=== PATIENT | female | born 1970 | race Two or more races ===

== ENCOUNTER 2018-12-14 14:48 | Inpatient (IN) | payer MEDICAID ==
[2018-12-14] MEDS ORDERED: CEPACOL LOZENGE PO PRN (16:37)
[2018-12-14] MEDS ORDERED: oxyCODONE IR 5 MG TAB PO PRN (16:37)
[2018-12-14] MEDS ORDERED: POLYVINYL ALCOHOL OP PRN (16:37)
[2018-12-14] MEDS ORDERED: NITROGLYCERIN 2% 1 GM PACKET TP PRN (16:37)
[2018-12-14] MEDS ORDERED: CARBOXYMETHYLCELLULOSE 1% 0.4 ML DROPERETTE OP PRN (16:37)
[2018-12-14] MEDS ORDERED: D50W 25 GM/50 ML SYR IVP PRN (16:39)
[2018-12-14] MEDS ORDERED: BISACODYL 10 MG SUPP PR PRN (16:43)
--- NOTE | 2018-12-14 16:59 | GHP ---
[f rep st] HISTORY AND PHYSICAL DATE OF ADMISSION: 12/14/2018 TIME OF EVALUATION: 1510. REFERRING FACILITY: [facility] REFERRING PHYSICIAN: Dr. Palmer IMPAIRMENT GROUP: [id number]. DATE OF ONSET: 11/24/2018. CONSULTING PHYSICIANS: Dr. Yun of Pulmonary and Critical Care Service. 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 ETIOLOGIC DIAGNOSIS: Other nontraumatic spinal cord dysfunction. DATE OF SURGERY: 11/24/2018. HISTORY OF PRESENT ILLNESS: This patient had slowly progressive weakness of the lower extremities more than upper extremities. She had a right knee surgery for torn cartilage, and then failed to have expected recovery in rehabilitation, which prompted imaging. Lumbar spine and EMG studies were normal. Hyperreflexia was noted on exam and brain and C-spine MRI were done. This showed a very large cigar shaped enhancing tumor in her cervical cord spanning from C4-T2 with edema superiorly into the medulla. She was first seen by Neurosurgery on 10/05/2018. Surgery was planned, and she was eventually admitted to [facility] where the surgery was done. She underwent a C3-T1 laminectomy infusion for resection of an intramedullary spinal cord tumor, which is thought to be an ependymoma. She had significant postoperative weakness of the legs and arms, so once she was medically stabilized, she was transferred for rehabilitation. Postop MRI of the cervical and thoracic spine showed good resection of the lesion. She was treated with steroids, and maintained at a goal mean arterial pressure of 65 mmHg to optimize recovery of spinal cord function. She reports that the neurosurgeon told her to expect a gradual recovery lasting as long as 6 months to a year. STUDIES AND LABS IN THE HOSPITAL: Most recent labs I have are a CBC from 2018, which showed a slightly elevated white blood cell count at 10.2. Hemoglobin and hematocrit were normal at 12.2 and 37.2. Platelets were 306. Basic metabolic profile on the same date showed slight hyponatremia with a sodium of 134, otherwise renal function and electrolytes were within normal limits. Magnesium was 2, and phosphorus was 3.3, both normal. Liver function tests on 12/06/2018, showed a slightly low albumin at 3.2, and a slightly low protein at 6.1. Otherwise, they were normal. PRECAUTIONS: She is a fall risk. She has orthopedic spinal precautions for the cervical spine. 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 She otherwise is without any tier 1, tier 2, or tier 3 comorbidities. 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 PAST SURGICAL HISTORY: She had closure of the skin over the traumatic amputation, and she had cartilage surgery on the right knee. PRE-HOSPITAL MEDICATIONS: I do not have a list. ADMISSION MEDICATIONS: 1. Acetaminophen 1000 mg q.8 hours. 2. Artificial Tears p.r.n. 3. Bisacodyl 10 mg at bedtime. 4. Bupropion 75 mg twice daily. 5. Carboxymethylcellulose refresh eyedrops p.r.n. 6. Dexamethasone 2 mg on a taper 4 mg 3 times daily for 2 days, then 4 mg twice daily for 4 days, then 2 mg twice daily for 4 days, then 2 mg daily for 3 days, and then discontinue. 7. Diazepam 5 mg q.6 hours p.r.n. anxiety. 8. Enoxaparin 40 mg subcutaneous daily. 9. Senna/docusate 2 tabs by mouth 2 times a day. 10. Oxycodone 5-10 mg p.o. q.4 hours p.r.n. ALLERGIES: There are no known drug allergies. SOCIAL HISTORY: She lives with her 2 teenage sons. She is a nonsmoker and nondrinker. 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 She is primarily [place]an speaking. FAMILY HISTORY: Noncontributory. REVIEW OF SYSTEMS: She is not currently in pain. She denies fevers or chills. She denies headache or vision changes. She denies difficulty swallowing. She denies cough or dyspnea. She denies nausea, vomiting, constipation, or diarrhea, and reports that her last bowel movement was yesterday morning after a suppository. She denies any difficulty with urination. She has weakness in the arms, and even more weakness in the legs. She reports that she has sensation everywhere. She is in good spirits. Otherwise, a 10-point review of systems is negative. PHYSICAL EXAMINATION: VITAL SIGNS: Vitals are not yet available in the chart. GENERAL: This is an overweight-appearing woman, lying in bed, dressed in hospital gown with a cervical collar, cooperative, and in no acute distress. HEENT: Extraocular movements are intact. Pupils are equal, round, and reactive to light. Mucous members are moist. Dentition is in good condition. She has an uncrowded airway, Mallampati class 2. NECK: Supple, though restricted with the cervical collar. HEART: Regular rate and rhythm with no murmurs, rubs, or gallops. LUNGS: Clear to auscultation bilaterally. ABDOMEN : Soft, nontender, nondistended with normoactive bowel sounds, and no hepatosplenomegaly. EXTREMITIES: There is no cyanosis, clubbing, or edema. Radial and dorsalis pedis pulses are 2+ bilaterally. NEUROLOGIC: She is alert and oriented x3. Cranial nerves 2-12 are grossly intact. Motor strength reveals 4/5 strength at the left biceps and triceps, and 2/5 strength at the right biceps and triceps. Her hand tractor operator battery are very weak bilaterally. She requires assist to arise to seated from supine. Lower extremities reveal flaccid paralysis bilaterally with no increased tone noted. Sensation is intact to light touch. Deep tendon reflexes are 2+ bilaterally at the biceps, patellar, and Achilles tendons. CURRENT LEVEL OF FUNCTION: Per the preadmission screen, she was wearing adult diapers. She was noted to be intermittently incontinent of bladder and bowel. Bed mobility required maximal assist of 2 transfers. Balance required assist of 2 to sit at the edge of the bed. Endurance was poor. Cognition and communication were normal. On today's exam, there is no significant change from the preadmission screen. IMPRESSION: This is a 48-year-old woman, who had gradual development of weakness in the lower extremities greater than the upper extremities. She had knee surgery, and did not have a good recovery from her right knee surgery. Eventually, she had imaging of the spine, which revealed a mass from C4-T2. She underwent surgery on 11/24/2018 with a C3-T1 laminectomy and fusion with resection of an intramedullary spinal cord tumor, which was consistent with an ependymoma. Postoperatively, she has significant weakness of the legs, much more so than the upper extremities. She also had impaired bowel and bladder control in the hospital. She appears to have intact sensation. This would be an MONIE level C incomplete spinal cord injury, with more than half of muscles below the neurologic level with a muscle grade of less than 3. She has little pain, and has not been using opiates in recent days in the hospital. Pain has been treated with pregabalin, as well as acetaminophen. She is appropriate for inpatient rehabilitation with needs for PT and OT. It is unclear the extent to which she will be able to recover lower extremity strength during the course of her rehabilitation stay, but she will need to learn how to best make transfers and take care of her needs with the deficits that she has. She has needs for rehabilitation nursing regarding possible complications of spinal cord injury including neurogenic bowel and bladder and autonomic dysreflexia. She she and her family have needs for education regarding spinal cord injury. Her goal is to complete a rehabilitation stay, and then return home with support of her family and supportive services for a safe discharge. It is expected she will be able to self direct the assistance that she requires for functional mobility, ADLs, and bowel and bladder management. It is anticipated that she will progress to the level of a 1 person assist for all functional transfers and activities of daily living, and she will be able to self propel her wheelchair indoors for 150 feet. The patient's sister will be a primary caregiver, and she will need to be trained to be able to safely assist her. She will have therapy on a modified schedule with Physical Therapy and Occupational Therapy for 60-90 minutes per day on 5-7 days of the week to total 15 hours of therapy per week or more. Her expected duration of stay is 21-28 days. It is anticipated that upon discharge, she will continue to benefit from home health services, including nursing, a nurse's aide, social work, occupational therapy, and physical therapy. PLAN: 1. Spinal cord dysfunction, C3 level, MONIE class 3, status post C3-T1 laminectomy and fusion on 11/24/2018 for resection of an ependymoma. PT and OT to optimize mobility and activities of daily living. 2. Possible neurogenic bowel and neurogenic bladder will be addressed with the neurogenic bowel and bladder protocol. 3. Risk for autonomic dysreflexia. She appears to have intact sensation, but she may not have appropriate parasynthetic control. Blood pressures will be monitored, and she will be treated with the autonomic peripheral dysreflexia protocol. WIll use nitroglycerin paste on a p.r.n. basis if non-pharmacologic measures are unsuccessful.. 4. Elevated blood sugars in the hospital, likely due to dexamethasone with possible risk for diabetes mellitus, given her age and body habitus. She has not been discharged with orders for insulin but was receiving in the hospital. We will continue an insulin sliding scale on the rehabilitation unit. 5. Prophylaxis for postoperative patient with spinal cord injury. She is on a dexamethasone taper, and this will be continued. As her mobility is severely limited, she will also be continued on enoxaparin. We will initiate GI prophylaxis with pantoprazole, as long as she is on both dexamethasone and enoxaparin. She is to wear her cervical collar at all times, except when showering. She has spinal precautions for the neck with no bending, twisting, or lifting greater than 10 pounds. FOLLOWUP: She is to follow up with Dr. Palmer in approximately 2 weeks, which would be the week of December 22. She will most likely still be in rehabilitation, so followup needs will be discussed with Dr. Palmer, and if possible, she can remain on the rehabilitation unit, rather than going out. She will need referral to outpatient physiatry and to primary care. /[id number]/MODL MTDD
[2018-12-14] MEDS ORDERED: TEARS/DEXTRAN 70/HYPROMELLOSE 15 ML OPHT.BTL EACHEYE PRN (17:01)
[2018-12-14] MEDS: INSULIN REGULAR HUMAN 100 UNIT/ML UNIT SC SCH ×2 (17:21→21:09)
[2018-12-14] MEDS: ENOXAPARIN 40 MG/0.4 ML SYR SC SCH (17:22)
[2018-12-14] MEDS ORDERED: NITROGLYCERIN 2% 1 GM PACKET TP SCH (18:00)
[2018-12-14] MEDS: ACETAMINOPHEN 500 MG TAB PO SCH (21:05)
[2018-12-14] MEDS: buPROPion 75 MG TAB PO SCH (21:06)
[2018-12-14] MEDS: DEXAMETHASONE 4 MG TAB PO SCH (21:06)
[2018-12-15] MEDS: ACETAMINOPHEN 500 MG TAB PO SCH ×3 (05:49→22:06)
[2018-12-15] MEDS: DEXAMETHASONE 4 MG TAB PO SCH ×3 (08:11→22:06)
[2018-12-15] MEDS: buPROPion 75 MG TAB PO SCH ×2 (08:11→22:06)
[2018-12-15] MEDS: INSULIN REGULAR HUMAN 100 UNIT/ML UNIT SC SCH ×4 (08:11→22:12)
[2018-12-15] MEDS ORDERED: hydrALAZINE 10 MG TAB PO PRN (10:43)
[2018-12-15] MEDS ORDERED: LIDOCAINE 2% JELLY 20 ML (UROJECT) UR PRN (10:45)
--- NOTE | 2018-12-15 12:33 | SOAPPROG ---
SOAP Progress Note Assessment/Plan: Assessment: Spinal cord dysfunction, C3 level, MONIE class 3, status post C3-T1 laminectomy and fusion on 11/24/2018 for resection of an ependymoma. PT and OT to optimize mobility and activities of daily living. Possible neurogenic bowel and neurogenic bladder will be addressed with the neurogenic bowel and bladder protocols. Risk for autonomic dysreflexia. She appears to have intact sensation, but she may not have appropriate parasympathetic control. * Blood pressures and symptoms of distress will be monitored, and she will be treated with the autonomic dysreflexia protocol. * Will use nitroglycerin paste on a p.r.n. basis if non-pharmacologic measures are unsuccessful.. Low blood pressure. Consider use of JB hose, abdominal binder, or pharmacologic treatments if she has orthostatic symptoms. Elevated blood sugars in the hospital, likely due to dexamethasone with possible risk for diabetes mellitus, given her age and body habitus. She has not been discharged with orders for insulin but was receiving in the hospital. We will continue an insulin sliding scale on the rehabilitation unit. Prophylaxis for postoperative patient with spinal cord injury. She is on a dexamethasone taper, and this will be continued. * As her mobility is severely limited, she will also be continued on enoxaparin. * Will initiate GI prophylaxis with pantoprazole, as long as she is on both dexamethasone and enoxaparin. * Incentive spirometry, as she has a weak cough. * She is to wear her cervical collar at all times, except when showering. She has spinal precautions for the neck with no bending, twisting, or lifting greater than 10 pounds. FOLLOWUP: She is to follow up with Neurosurgeon Dr. Palmer in approximately 2 weeks, which would be the week of December 22. She will most likely still be in rehabilitation, so followup needs will be discussed with Dr. Palmer, and if possible, she can remain on the rehabilitation unit, rather than going out. She will need referral to outpatient Physiatry and to primary care. 12/15/18 12:46 Subjective: No complaints. Slept well. Not in pain. She is not aware of any issues with bowel or bladder. In good spirits. Objective: Vital Signs Temp Pulse Resp BP Pulse Ox 36.5 C 68 16 95/60 L 95 12/15/18 06:17 12/15/18 06:17 12/15/18 06:17 12/15/18 06:17 12/15/18 06:17 12/14/18 12/15/18 12/16/18 05:59 05:59 05:59 Intake Total 400 250 Output Total 1975 Balance -1575 250 Physical Exam - Physical Exam General Appearance: WD/WN, alert, no apparent distress Respiratory: normal breath sounds, No crackles, No rhonchi, No wheezing Cardiac/Chest: regular rate, rhythm, No edema, No diastolic murmur, No systolic murmur Skin: normal color, warm/dry Neuro/Psych: alert, normal mood/affect, oriented x 3, motor weakness (Flaccid paralysis bilateral lower extremities. Has some motor control of the arms.) ICD10 Worksheet Patient Problems: Problems Problem Status Onset Spinal cord injury, cervical region Acute
--- NOTE | 2018-12-15 12:33 | PDOREHIP ---
Admission [facility] - Admission - 3 Day Assessment Period Admission Date/Day 1: 12/14/18 Day 2: 12/15/18 Day 3: 12/16/18 - Active Diagnoses Comorbidities and Co-existing Conditions at Admission: 16115. None of the Above - Skin Conditions Unhealed Pressure Ulcer (1 or more/Stage 1 or >)-Admission: 1. Yes # Stage 1 Pressure Ulcers-Admission: 0 # Stage 2 Pressure Ulcers-Admission: 1 (Right gluteal) # Stage 3 Pressure Ulcers-Admission: 0 # Stage 4 Pressure Ulcers-Admission: 0 # Unstageable Pressure Ulcers (Non-remove Dress)-Admission: 0 # Unstageable Pressure Ulcers (Slough/Eschar)-Admission: 0 # Unstageable Pressure Ulcers (Deep Tissue Injury)-Admission: 0
--- NOTE | 2018-12-15 13:19 | SOAPPROG ---
SOAP Progress Note Assessment/Plan: 48-year-old woman now status post resection of tumor consistent with the pending mom from the C4-T2 levels that had edema superior to the medulla now with C3 AIS (MONIE) C spinal cord injury on admission to inpatient rehabilitation with relative sparing of the upper limbs, left greater than right with absent motor response in the lower limbs. Today's update: This is a limited note from the same service as Dr. Wallace, please see his note for full daily medical issues. MONIE exam was completed today with spinal cord injury level noted above. She did have some anal sensation, did not have pinprick around the anus. As a summary, her last full strength motor level was C5 bilaterally, with weakness at C6 and below. The lowest intact sensory level was C3. Recommendations for nontraumatic incomplete cervical level spinal cord injury, C3 AIS C: * Cardiovascular: Patient is at risk for autonomic dysreflexia but per reports have not demonstrated signs or symptoms showing that this is orally a problem. The orders for management of autonomic dysreflexia by nursing, p.r.n. Orders for nitropaste and hydralazine as he had adjunctive medications. Did additional reminders on the unit for staff. Patient also has hypotension, initially starting with non pharmacologic therapy such as abdominal binder and thigh-high Zane hose for blood pressure support. Can consider pharmacologic strategies for blood pressure support such as midodrine if necessary. * Neurogenic bowel: Patient has reported bowel sensation, but was observed be incontinent today during exam. Assumed presence of neurogenic bowel given level spinal cord injury and severity, establishing regular bowel program and getting in KUB to determine amount of retained stool. Start with regular bowel program and can address more aggressively in coming days if necessary. Goal is a daily bowel program to be performed at the beginning or end of day not interfering with therapy with the goal to completely prevent incontinence. * Neurogenic bladder: Similarly to neurogenic bowel, assume that she has neurogenic bladder. Reports of large volume voids but patient denies episodes of incontinence. Reports are mixed. Plan for scheduled voiding with postvoid residuals after each void. Low threshold for replacing Ramírez catheter given poor hand function. She is likely not a good candidate for intermittent catheterization any time soon. * Neurogenic skin: Q 2 hr turns in bed, acute 15 min adjustment while in a wheelchair. Skin checks twice a day, education and Mirror. Wound care for pressure ulcer observed on right buttock today. * Pulmonary: Patient has a weak cough and likely has neuromuscular impairment of the chest wall, encouraging incentive spirometry. Low threshold for respiratory therapy evaluation. We do not have a cough assist available in house, but would discuss further with respiratory therapy if secretion management is an issue. * Contracture prevention: She does not have spasticity at this moment, but would benefit from ankle splints when resting in bed for contracture prevention as well as skin protection. Orthotics order placed today * Additional sequelae of spinal cord injury: Patient had a slow onset of spinal cord injury symptoms, checking labs for monitoring renal function. Low threshold for renal imaging as she is at high risk for having high-pressure bladder. This should definitely be followed as an outpatient as well. Also checking labs for hypercalcemia, as she is at high risk for this given age and immobility. * Discharge planning: Patient will be working with staff to identify a area physical medicine rehabilitation physician to manage spinal cord injury issues after discharge, including monitoring renal function, ongoing Prosthetics orthotics needs, wheelchair needs. * Mobility planning: Overall prognosis is guarded, discuss with team the need to be thinking about powered mobility and lift access early in the course. * Spinal cord injury education: Printed off information in Chinese and [place] to be covered with the patient by staff. Patient noted that she prefers information in Chinese, spoken. Unclear what her baseline literacy level is, we will recruit family members to help with this process as well. Her symptom history is also unclear at times, may require additional re-education and venting of her symptoms. Recommendations above discussed with Dr. Wallace, to be incorporated in the daily plan for this patient. Dr. Wallace I represent the same service, inpatient rehabilitation, please refer to his note for billing for this date of service. 12/15/18 13:03 Subjective: Chief complaint: New spinal cord injury Please see prior notes from the service for full details. History was obtained with an educational interpreter, however there was some mixed interpretation of symptoms. Overall it seems that prior to the surgery she was having a bowel movement sometimes as little as once per week, unclear when this frequency for started. Notes that there was a gradual onset of functional decline, but she denied that there was progression of weakness. Denies any shortness of breath, has a weak cough. Objective: Vital Signs Temp Pulse Resp BP Pulse Ox 36.5 C 68 16 95/60 L 95 12/15/18 06:17 12/15/18 06:17 12/15/18 06:17 12/15/18 06:17 12/15/18 06:17 12/14/18 12/15/18 12/16/18 05:59 05:59 05:59 Intake Total 400 250 Output Total 1974 Balance -1575 250 Physical Exam - Physical Exam General Appearance: WD/WN, alert, no apparent distress EENT: No scleral icterus (R), No scleral icterus (L) Neck: other (C-collar in place) Respiratory: No respiratory distress, No accessory muscle use Cardiac/Chest: normal peripheral pulses, regular rate, rhythm, No edema Abdomen: non-tender, distended Rectal: decreased tone, other (Rectal tone was low no voluntary sphincter contraction. Pinprick sensation about the anus was absent), No normal rectal tone, No black stool, No blood streaked stool, No hemorrhoids, No tenderness Skin: normal color, warm/dry, other (Right buttock had a healing lesion), No cyanosis, No diaphoresis Extremities: No pedal edema, No calf tenderness, No swelling Neuro/Psych: alert, normal mood/affect, other (Please see detailed OMNIE exam in the chart. Also had 2+ reflexes at the bilateral patella, Babinski was equivocal. No spasticity appreciated in the upper or lower limbs) ICD10 Worksheet Patient Problems: Problems Problem Status Onset Spinal cord injury, cervical region Acute
[2018-12-15] MEDS: ENOXAPARIN 40 MG/0.4 ML SYR SC SCH (15:03)
[2018-12-15] MEDS ORDERED: BISACODYL 10 MG SUPP PR ONE (17:00)
[2018-12-15] MEDS: DOCUSATE SODIUM 100 MG CAP PO SCH (22:06)
[2018-12-16] MEDS ORDERED: BISACODYL 10 MG SUPP PR SCH (06:00)
[2018-12-16] MEDS: ACETAMINOPHEN 500 MG TAB PO SCH ×3 (06:14→21:46)
[2018-12-16] MEDS: INSULIN REGULAR HUMAN 100 UNIT/ML UNIT SC SCH (08:19)
[2018-12-16] MEDS: buPROPion 75 MG TAB PO SCH ×2 (08:22→21:45)
[2018-12-16] MEDS: DOCUSATE SODIUM 100 MG CAP PO SCH ×2 (08:23→21:45)
[2018-12-16] MEDS: DEXAMETHASONE 4 MG TAB PO SCH ×2 (08:23→15:52)
[2018-12-16] MEDS: PANTOPRAZOLE SODIUM 40 MG TAB PO SCH (08:24)
--- NOTE | 2018-12-16 12:56 | SOAPPROG ---
SOAP Progress Note Assessment/Plan: Assessment: Spinal cord dysfunction, C3 level, MONIE class 3, status post C3-T1 laminectomy and fusion on 11/24/2018 for resection of an ependymoma. * Initial functional independence measure is 57 on 12/16/2018. Working on upright tolerance. She spent 60 min in the tilt in space wheelchair, upright for a meal. She requires Farhan lift for transfer firs. She did a sliding board transfer with maximal assist of 2. She has trace movement in the lower extremities more so on the left than the right. She has full active range of motion with the upper extremities. She accomplished upper body dressing with moderate to maximal assist. Lower body dressing required total assist. She is incontinent of stool and insensate. * Physical therapy is initiating process of obtaining a power chair. * Continue PT and OT to optimize mobility and activities of daily living. Hyponatremia, with sodium 133 on 12/16/2018. * Check urine and serum osmolalities, serum uric acid and urine sodium, to evaluate for SIADH. Neurogenic bowel * Start with regular bowel program and can address more aggressively in coming days if necessary. Goal is a daily bowel program to be performed at the beginning or end of day not interfering with therapy with the goal to completely prevent incontinence. Neurogenic bladder * Plan for scheduled voiding with postvoid residuals after each void. Low threshold for replacing Ramírez catheter. Given poor hand function, she is likely not a good candidate for intermittent catheterization any time soon. * Normal renal function but mild hyponatremia on labs 12/16/2018. Risk for autonomic dysreflexia. She appears to have intact sensation, but she may not have appropriate parasympathetic control. * Blood pressures and symptoms of distress will be monitored, and she will be treated with the autonomic dysreflexia protocol. * Will use nitroglycerin paste on a p.r.n. basis if non-pharmacologic measures are unsuccessful.. Skin ulcer, right buttock, possibly from shear. * Though it appears to be possibly vesicular, swab was negative by PCR testing for HSV 1 or 2 or for Zoster. * Continue specialty mattress and q.2 hours turning schedule. Pulmonary.. * Has been assessed by Respiratory therapy. Achieving near normal pressures with incentive spirometry. Continue incentive spirometry. Contracture prevention. * No spasticity at present but will initiate spasticity of management with medications of a develops. * Podus boots while in bed to prevent ankle contractures. Low blood pressure. Consider use of JB hose, abdominal binder, or pharmacologic treatments if she has orthostatic symptoms. Elevated blood sugars in the hospital, likely due to dexamethasone with possible risk for diabetes mellitus, given her age and body habitus. She has not been discharged with orders for insulin but was receiving in the hospital. We will continue an insulin sliding scale on the rehabilitation unit. Prophylaxis for postoperative patient with spinal cord injury. She is on a dexamethasone taper, and this will be continued. * As her mobility is severely limited, she will also be continued on enoxaparin. * Will initiate GI prophylaxis with pantoprazole, as long as she is on both dexamethasone and enoxaparin. * Incentive spirometry, as she has a weak cough. * She is to wear her cervical collar at all times, except when showering. She has spinal precautions for the neck with no bending, twisting, or lifting greater than 10 pounds. DISPOSITION: Attended staffing, 15 min. Discussed with case management, nursing, dietitian, PT, OT. Unclear whether destination is home or [facility]it[facility] facility. Mother is coming from [place] to assist in care. Tentative discharge date set for 01/06/2019. FOLLOWUP: She is to follow up with Neurosurgeon Dr. Palmer in approximately 2 weeks, which would be the week of December 22. She will most likely still be in rehabilitation, so followup needs will be discussed with Dr. Palmer, and if possible, she can remain on the rehabilitation unit, rather than going out. She will need referral to outpatient Physiatry and to primary care. 12/15/18 12:46 12/16/18 12:38 Subjective: No complaints. Slept well. Not in pain. No fevers or chills. Reports some difficulty with bowel movements and unclear how much sensation she has. Objective: Vital Signs Temp Pulse Resp BP Pulse Ox 37.3 C 92 18 93/60 L 96 12/16/18 06:41 12/16/18 06:41 12/16/18 06:41 12/16/18 06:41 12/16/18 06:41 Microbiology 12/15/18 17:45 Herpes Simplex Virus I (PCR) - Final Dermal - Buttock Hsv-1 Dna Not Detected Herpes Simplex Virus II (PCR) - Final Hsv-2 Dna Detected Varicella-Zoster Group DNA (PCR) - Final Vzv Dna Not Detected HSV/VZV PCR Additional Information - Final Laboratory Results 12/16/18 06:00 12/15/18 12/16/18 12/17/18 05:59 05:59 05:59 Intake Total 400 760 Output Total 9306 8233 925 Balance -1575 -1365 -100 - Time Spent With Patient Time Spent With Patient: Greater than 35 min floor time today, including more than 50% of time in coordination of care during staffing, and counseling patient. Physical Exam - Physical Exam General Appearance: WD/WN, alert, no apparent distress Respiratory: No respiratory distress, No accessory muscle use Cardiac/Chest: No edema Skin: normal color, warm/dry Neuro/Psych: alert, normal mood/affect, oriented x 3, motor weakness ICD10 Worksheet Patient Problems: Problems Problem Status Onset Spinal cord injury, cervical region Acute
[2018-12-16] MEDS: ENOXAPARIN 40 MG/0.4 ML SYR SC SCH (15:52)
[2018-12-16] MEDS: BISACODYL 10 MG SUPP PR SCH (19:14)
[2018-12-17] MEDS: ACETAMINOPHEN 500 MG TAB PO SCH ×3 (05:16→21:05)
[2018-12-17] MEDS: PANTOPRAZOLE SODIUM 40 MG TAB PO SCH (08:56)
[2018-12-17] MEDS: DEXAMETHASONE 4 MG TAB PO SCH ×2 (08:56→21:05)
[2018-12-17] MEDS: buPROPion 75 MG TAB PO SCH ×2 (08:56→21:05)
[2018-12-17] MEDS: DOCUSATE SODIUM 100 MG CAP PO SCH ×2 (08:56→22:14)
--- NOTE | 2018-12-17 11:43 | HOSPPROG ---
Hospitalist Progress Note Assessment/Plan: Spinal cord dysfunction, C3 level, MONIE class 3, status post C3-T1 laminectomy and fusion on 11/24/2018 for resection of an ependymoma. * Initial functional independence measure is 57 on 12/16/2018. Working on upright tolerance. She spent 60 min in the tilt in space wheelchair, upright for a meal. She requires Farhan lift for transfer firs. She did a sliding board transfer with maximal assist of 2. She has trace movement in the lower extremities more so on the left than the right. She has full active range of motion with the upper extremities. She accomplished upper body dressing with moderate to maximal assist. Lower body dressing required total assist. She is incontinent of stool and insensate. * Physical therapy is initiating process of obtaining a power chair. * Continue PT and OT to optimize mobility and activities of daily living. Hyponatremia, with sodium 133 on 12/16/2018. * Check urine and serum osmolalities, serum uric acid and urine sodium, to evaluate for SIADH. Neurogenic bowel * Start with regular bowel program and can address more aggressively in coming days if necessary. Goal is a daily bowel program to be performed at the beginning or end of day not interfering with therapy with the goal to completely prevent incontinence. Neurogenic bladder * Plan for scheduled voiding with postvoid residuals after each void. Low threshold for replacing Ramírez catheter. Given poor hand function, she is likely not a good candidate for intermittent catheterization any time soon. * Normal renal function but mild hyponatremia on labs 12/16/2018. Risk for autonomic dysreflexia. She appears to have intact sensation, but she may not have appropriate parasympathetic control. * Blood pressures and symptoms of distress will be monitored, and she will be treated with the autonomic dysreflexia protocol. * Will use nitroglycerin paste on a p.r.n. basis if non-pharmacologic measures are unsuccessful.. Skin ulcer, right buttock, possibly from shear. * Though it appears to be possibly vesicular, swab was negative by PCR testing for HSV 1 or 2 or for Zoster. * Continue specialty mattress and q.2 hours turning schedule. 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 SEEMS TO BE IN HEALING PHASE BUT WILL GIVE A FEW DAYS OF VALACYCLOVIR UNTIL IT DRIES UP Pulmonary.. * Has been assessed by Respiratory therapy. Achieving near normal pressures with incentive spirometry. Continue incentive spirometry. Contracture prevention. * No spasticity at present but will initiate spasticity of management with medications of a develops. * Podus boots while in bed to prevent ankle contractures. Low blood pressure. Consider use of JB hose, abdominal binder, or pharmacologic treatments if she has orthostatic symptoms. Elevated blood sugars in the hospital, likely due to dexamethasone with possible risk for diabetes mellitus, given her age and body habitus. She has not been discharged with orders for insulin but was receiving in the hospital. We will continue an insulin sliding scale on the rehabilitation unit. Prophylaxis for postoperative patient with spinal cord injury. She is on a dexamethasone taper, and this will be continued. * As her mobility is severely limited, she will also be continued on enoxaparin. * Will initiate GI prophylaxis with pantoprazole, as long as she is on both dexamethasone and enoxaparin. * Incentive spirometry, as she has a weak cough. * She is to wear her cervical collar at all times, except when showering. She has spinal precautions for the neck with no bending, twisting, or lifting greater than 10 pounds. DISPOSITION: Unclear whether destination is home or long-term facility. Mother is coming from [place] to assist in care. Tentative discharge date set for 01/06/2019. FOLLOWUP: She is to follow up with Neurosurgeon Dr. Palmer in approximately 2 weeks, which would be the week of December 22. She will most likely still be in rehabilitation, so followup needs will be discussed with Dr. Palmer, and if possible, she can remain on the rehabilitation unit, rather than going out. She will need referral to outpatient Physiatry and to primary care. Subjective: no new complaints. 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 Objective: Vital Signs Temp Pulse Resp BP Pulse Ox 36.7 C 79 16 89/65 L 96 12/17/18 05:15 12/17/18 05:15 12/17/18 05:15 12/17/18 05:15 12/17/18 05:15 Microbiology 12/15/18 17:45 Herpes Simplex Virus I (PCR) - Final Dermal - Buttock Hsv-1 Dna Not Detected Herpes Simplex Virus II (PCR) - Final Hsv-2 Dna Detected Varicella-Zoster Group DNA (PCR) - Final Vzv Dna Not Detected HSV/VZV PCR Additional Information - Final Laboratory Results 12/17/18 07:00 12/16/18 12/17/18 12/18/18 05:59 05:59 05:59 Intake Total 760 1050 Output Total 0219 1257 Balance -4892 -934 - Physical Exam Constitutional: no apparent distress, appears nourished, not in pain Eyes: anicteric sclera, EOMI Ears, Nose, Mouth, Throat: moist mucous membranes Cardiovascular: regular rate and rhythym, no murmur, rub, or gallop Respiratory: no respiratory distress Gastrointestinal: normoactive bowel sounds, soft, non-tender abdomen, distension (lower abd ditension - soft) Skin: other (left buttock - small erythematous lesion - could be burst vesicles) Neurologic: AAOx3 Psychiatric: interacting appropriately, not anxious, not encephalopathic, thought process linear ICD10 Worksheet Patient Problems: Problems Problem Status Onset Spinal cord injury, cervical region Acute
[2018-12-17] MEDS: valACYclovir 500 MG TAB PO SCH ×2 (14:13→21:04)
[2018-12-17] MEDS: BISACODYL 10 MG SUPP PR SCH (16:19)
[2018-12-17] MEDS: ENOXAPARIN 40 MG/0.4 ML SYR SC SCH (16:19)
[2018-12-18] MEDS: ACETAMINOPHEN 500 MG TAB PO SCH ×3 (05:33→22:39)
[2018-12-18] MEDS: valACYclovir 500 MG TAB PO SCH ×2 (09:06→20:32)
[2018-12-18] MEDS: PANTOPRAZOLE SODIUM 40 MG TAB PO SCH (09:06)
[2018-12-18] MEDS: DOCUSATE SODIUM 100 MG CAP PO SCH ×2 (09:06→20:32)
[2018-12-18] MEDS: buPROPion 75 MG TAB PO SCH ×2 (09:07→20:32)
[2018-12-18] MEDS: DEXAMETHASONE 4 MG TAB PO SCH ×2 (09:07→20:32)
--- NOTE | 2018-12-18 11:07 | HOSPPROG ---
Hospitalist Progress Note Assessment/Plan: Spinal cord dysfunction, C3 level, MONIE class 3, status post C3-T1 laminectomy and fusion on 11/24/2018 for resection of an ependymoma. * Initial functional independence measure is 57 on 12/16/2018. Working on upright tolerance. She spent 60 min in the tilt in space wheelchair, upright for a meal. She requires Farhan lift for transfer firs. She did a sliding board transfer with maximal assist of 2. She has trace movement in the lower extremities more so on the left than the right. She has full active range of motion with the upper extremities. She accomplished upper body dressing with moderate to maximal assist. Lower body dressing required total assist. She is incontinent of stool and insensate. * Physical therapy is initiating process of obtaining a power chair. * Continue PT and OT to optimize mobility and activities of daily living. Hyponatremia, with sodium 133 on 12/16/2018. * possibly SIADH per urine but improved very quickly 12/17/18. recheck in a few days Neurogenic bowel * Start with regular bowel program and can address more aggressively in coming days if necessary. Goal is a daily bowel program to be performed at the beginning or end of day not interfering with therapy with the goal to completely prevent incontinence. Neurogenic bladder * Plan for scheduled voiding with postvoid residuals after each void. Low threshold for replacing Ramírez catheter. Given poor hand function, she is likely not a good candidate for intermittent catheterization any time soon. * Normal renal function but mild hyponatremia on labs 12/16/2018. Risk for autonomic dysreflexia. She appears to have intact sensation, but she may not have appropriate parasympathetic control. * Blood pressures and symptoms of distress will be monitored, and she will be treated with the autonomic dysreflexia protocol. * Will use nitroglycerin paste on a p.r.n. basis if non-pharmacologic measures are unsuccessful.. Skin ulcer, right buttock, possibly from shear. * Though it appears to be possibly vesicular, swab was negative by PCR testing for HSV 1 or 2 or for Zoster. * Continue specialty mattress and q.2 hours turning schedule. 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 SEEMS TO BE IN HEALING PHASE BUT WILL GIVE A FEW DAYS OF VALACYCLOVIR UNTIL IT DRIES UP Pulmonary.. * Has been assessed by Respiratory therapy. Achieving near normal pressures with incentive spirometry. Continue incentive spirometry. Contracture prevention. * No spasticity at present but will initiate spasticity of management with medications of a develops. * Podus boots while in bed to prevent ankle contractures. Low blood pressure. Consider use of JB hose, abdominal binder, or pharmacologic treatments if she has orthostatic symptoms. Elevated blood sugars in the hospital, likely due to dexamethasone with possible risk for diabetes mellitus, given her age and body habitus. She has not been discharged with orders for insulin but was receiving in the hospital. We will continue an insulin sliding scale on the rehabilitation unit. Prophylaxis for postoperative patient with spinal cord injury. She is on a dexamethasone taper, and this will be continued. * As her mobility is severely limited, she will also be continued on enoxaparin. * Will initiate GI prophylaxis with pantoprazole, as long as she is on both dexamethasone and enoxaparin. * Incentive spirometry, as she has a weak cough. * She is to wear her cervical collar at all times, except when showering. She has spinal precautions for the neck with no bending, twisting, or lifting greater than 10 pounds. DISPOSITION: Unclear whether destination is home or [facility] facility. Mother is coming from [place] to assist in care. Tentative discharge date set for 01/06/2019. FOLLOWUP: She is to follow up with Neurosurgeon Dr. Palmer in approximately 2 weeks, which would be the week of December 22. She will most likely still be in rehabilitation, so followup needs will be discussed with Dr. Palmer, and if possible, she can remain on the rehabilitation unit, rather than going out. She will need referral to outpatient Physiatry and to primary care. Subjective: no new complaints. had large bm overnight Objective: Vital Signs Temp Pulse Resp BP Pulse Ox 36.7 C 66 16 97/61 L 96 12/18/18 05:49 12/18/18 05:49 12/18/18 05:49 12/18/18 05:49 12/18/18 05:49 Laboratory Results 12/17/18 07:00 12/17/18 12/18/18 12/19/18 05:59 05:59 05:59 Intake Total 1050 1360 Output Total 8920 5265 Balance -445 -315 - Physical Exam Constitutional: no apparent distress, appears nourished, not in pain Eyes: anicteric sclera, EOMI Ears, Nose, Mouth, Throat: moist mucous membranes Cardiovascular: regular rate and rhythym Respiratory: no respiratory distress Gastrointestinal: normoactive bowel sounds, soft, non-tender abdomen, distension Skin: warm Neurologic: AAOx3 ICD10 Worksheet Patient Problems: Problems Problem Status Onset Spinal cord injury, cervical region Acute
[2018-12-18] MEDS: ENOXAPARIN 40 MG/0.4 ML SYR SC SCH (16:57)
[2018-12-18] MEDS: BISACODYL 10 MG SUPP PR SCH (18:23)
[2018-12-19] MEDS: ACETAMINOPHEN 500 MG TAB PO SCH ×3 (05:37→21:13)
[2018-12-19] MEDS: BISACODYL 10 MG SUPP PR SCH (05:37)
[2018-12-19] MEDS: DOCUSATE SODIUM 100 MG CAP PO SCH ×2 (09:16→21:13)
[2018-12-19] MEDS: DEXAMETHASONE 4 MG TAB PO SCH ×2 (09:16→21:13)
[2018-12-19] MEDS: buPROPion 75 MG TAB PO SCH ×2 (09:16→21:13)
[2018-12-19] MEDS: PANTOPRAZOLE SODIUM 40 MG TAB PO SCH (09:16)
[2018-12-19] MEDS: valACYclovir 500 MG TAB PO SCH ×2 (09:16→21:13)
--- NOTE | 2018-12-19 10:55 | SOAPPROG ---
SOAP Progress Note Assessment/Plan: Assessment: Spinal cord dysfunction, C3 level, ALMA class 3, status post C3-T1 laminectomy and fusion on 11/24/2018 for resection of an ependymoma. She does have antigravity strength of the deltoids and wrist extensors so her Alma classification may need to be updated in the next week or so. * Initial functional independence measure is 57 on 12/16/2018. Working on upright tolerance. She spent 60 min in the tilt in space wheelchair, upright for a meal. She requires Farhan lift for transfer firs. She did a sliding board transfer with maximal assist of 2. She has trace movement in the lower extremities more so on the left than the right. She has full active range of motion with the upper extremities. She accomplished upper body dressing with moderate to maximal assist. Lower body dressing required total assist. She is incontinent of stool and insensate. * Physical therapy is initiating process of obtaining a power chair. * Continue PT and OT to optimize mobility and activities of daily living. Possible cognitive dysfunction. Patient discussed during a team rounds today and occupational therapy concerned that there may be some cognitive dysfunction even when an coroner's juror is present. Therefore will obtain speech therapy consult with coroner's juror. Hyponatremia. Sodium level on 12/17 was 137. 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 Neurogenic bowel * Start with regular bowel program and can address more aggressively in coming days if necessary. Goal is a daily bowel program to be performed at the beginning or end of day not interfering with therapy with the goal to completely prevent incontinence. Neurogenic bladder * Plan for scheduled voiding with postvoid residuals after each void. Low threshold for replacing Ramírez catheter. Given poor hand function, she is likely not a good candidate for intermittent catheterization any time soon. * Normal renal function but mild hyponatremia on labs 12/16/2018. Risk for autonomic dysreflexia. She appears to have intact sensation, but she may not have appropriate parasympathetic control. * Blood pressures and symptoms of distress will be monitored, and she will be treated with the autonomic dysreflexia protocol. * Will use nitroglycerin paste on a p.r.n. basis if non-pharmacologic measures are unsuccessful.. Skin ulcer, right buttock, possibly from shear. * Though it appears to be possibly vesicular, swab was negative by PCR testing for HSV 1 or 2 or for Zoster. * Continue specialty mattress and q.2 hours turning schedule. Pulmonary.. * Has been assessed by Respiratory therapy. Achieving near normal pressures with incentive spirometry. Continue incentive spirometry. Lungs are clear on this morning's exam. Contracture prevention. * No spasticity at present but will initiate spasticity of management with medications of a develops. * Podus boots while in bed to prevent ankle contractures. Hypertension. Blood pressure on . Blood pressure this morning pending. . Elevated blood sugars in the hospital, likely due to dexamethasone with possible risk for diabetes mellitus, given her age and body habitus. She has not been discharged with orders for insulin but was receiving in the hospital. We will continue an insulin sliding scale on the rehabilitation unit. Prophylaxis for postoperative patient with spinal cord injury. She is on a dexamethasone taper, and this will be continued. * As her mobility is severely limited, she will also be continued on enoxaparin. * Will initiate GI prophylaxis with pantoprazole, as long as she is on both dexamethasone and enoxaparin. * Incentive spirometry, as she has a weak cough. * She is to wear her cervical collar at all times, except when showering. She has spinal precautions for the neck with no bending, twisting, or lifting greater than 10 pounds. DISPOSITION: Attended staffing, 15 min. Discussed with case management, nursing, dietitian, PT, OT. Unclear whether destination is home or shelter facility. Mother is coming from [place] to assist in care. Tentative discharge date set for 01/06/2019. FOLLOWUP: She is to follow up with Neurosurgeon Dr. Palmer in approximately 2 weeks, which would be the week of December 22. She will most likely still be in rehabilitation, so followup needs will be discussed with Dr. Palmer, and if possible, she can remain on the rehabilitation unit, rather than going out. She will need referral to outpatient Physiatry and to primary care. Plan: 12/19/18 09:50 12/19/18 10:55 Subjective: No complaints reported by patient. She denies lower extremity pain or spasticity. Objective: Vital Signs Temp Pulse Resp BP Pulse Ox 36.7 C 93 16 91/65 L 94 12/18/18 20:00 12/18/18 20:00 12/18/18 20:00 12/18/18 20:00 12/18/18 20:00 Laboratory Results 12/17/18 07:00 12/18/18 12/19/18 12/20/18 05:59 05:59 05:59 Intake Total 1360 9326 Output Total 0556 5693 Balance -315 -850 Physical Exam - Physical Exam General Appearance: WD/WN, alert, no apparent distress Respiratory: lungs clear, normal breath sounds Abdomen: non-tender, soft, other (No suprapubic tenderness) Skin: Zoster-like rash Neuro/Psych: alert, motor weakness (No active lower extremity motor recruitment. 3+ anterior and lateral deltoid, biceps, wrist and finger extensors bilaterally with left upper extremity being slightly weaker than right.) ICD10 Worksheet Patient Problems: Problems Problem Status Onset Spinal cord injury, cervical region Acute
[2018-12-19] MEDS: ENOXAPARIN 40 MG/0.4 ML SYR SC SCH (17:10)
[2018-12-20] MEDS: BISACODYL 10 MG SUPP PR SCH (05:36)
[2018-12-20] MEDS: ACETAMINOPHEN 500 MG TAB PO SCH ×3 (05:40→20:37)
[2018-12-20] MEDS: buPROPion 75 MG TAB PO SCH ×2 (10:12→20:37)
[2018-12-20] MEDS: PANTOPRAZOLE SODIUM 40 MG TAB PO SCH (10:12)
[2018-12-20] MEDS: DEXAMETHASONE 4 MG TAB PO SCH ×2 (10:12→20:37)
[2018-12-20] MEDS: DOCUSATE SODIUM 100 MG CAP PO SCH ×2 (10:12→20:37)
[2018-12-20] MEDS: valACYclovir 500 MG TAB PO SCH ×2 (10:13→20:37)
--- NOTE | 2018-12-20 11:45 | SOAPPROG ---
SOAP Progress Note Assessment/Plan: Assessment: Spinal cord dysfunction, C3 level, MONIE class 3, status post C3-T1 laminectomy and fusion on 11/24/2018 for resection of an ependymoma. HER LEFT UPPER EXTREMITY STRENGTH IS GREATER THAN THE RIGHT UPPER EXTREMITY WITH 4/5 STRENGTH OF THE LEFT TRICEPS. SHE HAS AT LEAST 3/5 STRENGTH OF THE RIGHT AND LEFT DELTOIDS AND THEREFORE SHE MAY BE CLOSER TO A C5 LEVEL MONIE CLASSIFICATION AT THIS POINT. CONTINUE SERIAL TESTING TO GAUGE MOTOR RETURN. * Initial functional independence measure is 57 on 12/16/2018. Working on upright tolerance. She spent 60 min in the tilt in space wheelchair, upright for a meal. She requires Farhan lift for transfer firs. She did a sliding board transfer with maximal assist of 2. She has trace movement in the lower extremities more so on the left than the right. She has full active range of motion with the upper extremities. She accomplished upper body dressing with moderate to maximal assist. Lower body dressing required total assist. She is incontinent of stool and insensate. * Physical therapy is initiating process of obtaining a power chair. * Continue PT and OT to optimize mobility and activities of daily living. Possible cognitive dysfunction. Patient discussed during a team rounds today and occupational therapy concerned that there may be some cognitive dysfunction even when an territory sales consultant is present. Therefore will obtain speech therapy consult with territory sales consultant. Hyponatremia. Sodium level on 12/17 was 137. CBC IN A.M. 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 Neurogenic bowel-ON 12/20 EXAM, PATIENT REPORTS SHE HAS SENSATION REGARDING WHEN SHE NEEDS TO HAVE A BOWEL MOVEMENT. * Start with regular bowel program and can address more aggressively in coming days if necessary. Goal is a daily bowel program to be performed at the beginning or end of day not interfering with therapy with the goal to completely prevent incontinence. Neurogenic bladder. ON 12/20 EXAM, PATIENT REPORTS SHE HAS SENSATION REGARDING WHEN SHE NEEDS TO URINATE. * Plan for scheduled voiding with postvoid residuals after each void. Low threshold for replacing Ramírez catheter. Given poor hand function, she is likely not a good candidate for intermittent catheterization any time soon. * Normal renal function but mild hyponatremia on labs 12/16/2018. Risk for autonomic dysreflexia. She appears to have intact sensation, but she may not have appropriate parasympathetic control. * Blood pressures and symptoms of distress will be monitored, and she will be treated with the autonomic dysreflexia protocol. * Will use nitroglycerin paste on a p.r.n. basis if non-pharmacologic measures are unsuccessful.. Skin ulcer, right buttock, possibly from shear. * Though it appears to be possibly vesicular, swab was negative by PCR testing for HSV 1 or 2 or for Zoster. * Continue specialty mattress and q.2 hours turning schedule * WILL WRITE ORDER FOR CHAIR TO BE TILTED BACKWARDS FOR 1 MIN EVERY 15 MIN Pulmonary.. * Has been assessed by Respiratory therapy. Achieving near normal pressures with incentive spirometry. Continue incentive spirometry. Lungs are clear on this morning's exam. Contracture prevention. * No spasticity at present but will initiate spasticity of management with medications of a develops. * Podus boots while in bed to prevent ankle contractures. Hypertension. Blood pressure on 12/18 91/67. Blood pressure 12/20 WAS 95/69. RULE OUT INFECTION-PATIENT REPORTS FEELING COLD TO NURSING STAFF. AFEBRILE AT 37.3. WILL OBTAIN CBC AND UA, CULTURE AND SENSITIVITY TODAY . Elevated blood sugars in the hospital, likely due to dexamethasone with possible risk for diabetes mellitus, given her age and body habitus. She has not been discharged with orders for insulin but was receiving in the hospital. We will continue an insulin sliding scale on the rehabilitation unit. Prophylaxis for postoperative patient with spinal cord injury. She is on a dexamethasone taper, and this will be continued. * As her mobility is severely limited, she will also be continued on enoxaparin. * Will initiate GI prophylaxis with pantoprazole, as long as she is on both dexamethasone and enoxaparin. * Incentive spirometry, as she has a weak cough. * She is to wear her cervical collar at all times, except when showering. She has spinal precautions for the neck with no bending, twisting, or lifting greater than 10 pounds. DISPOSITION: Attended staffing, 15 min. Discussed with case management, nursing, dietitian, PT, OT. Unclear whether destination is home or senior living facility. Mother is coming from [place] to assist in care. Tentative discharge date set for 01/06/2019. FOLLOWUP: She is to follow up with Neurosurgeon Dr. Palmer in approximately 2 weeks, which would be the week of December 22. She will most likely still be in rehabilitation, so followup needs will be discussed with Dr. Palemr, and if possible, she can remain on the rehabilitation unit, rather than going out. She will need referral to outpatient Physiatry and to primary care. Plan: 12/19/18 09:50 12/19/18 10:55 12/20/18 11:45 Subjective: PATIENT REPORTS TO NURSING THAT SHE FEELS COLD. NO COMPLAINTS VERBALIZED TO ME WITH PROCUREMENT PROFESSIONAL PRESENT. SHE REPORTS THAT SHE HAS SENSATION REGARDING NEED TO URINATE AND HAVE BOWEL MOVEMENTS. SHE DOES NOT REPORT UPPER OR LOWER EXTREMITY NEUROPATHIC PAIN. Objective: Vital Signs Temp Pulse Resp BP Pulse Ox 37.3 C 93 15 95/69 L 93 12/20/18 05:45 12/20/18 05:45 12/20/18 05:45 12/20/18 05:45 12/20/18 05:45 Laboratory Results 12/17/18 07:00 12/19/18 12/20/18 12/21/18 05:59 05:59 05:59 Intake Total 1275 1572 Output Total 2125 1550 Balance -850 22 Physical Exam - Physical Exam General Appearance: WD/WN, alert, mild distress, other (APPEARS COMFORTABLE SITTING IN WHEELCHAIR) Respiratory: lungs clear, normal breath sounds Cardiac/Chest: No edema Abdomen: non-tender, soft, other (ABDOMINAL BINDER IN PLACE) Skin: warm/dry Neuro/Psych: alert, motor weakness (LEFT UPPER EXTREMITY HAS MORE MOTOR RETURN THAN RIGHT UPPER EXTREMITY. 3/5 ANTERIOR AND MIDDLE DELTOID BILATERALLY WITH SLIGHTLY MORE MOTOR CONTROL TRIAL ON THE LEFT. 3/5 RIGHT 2+ 3-/5 LEFT BICEPS 4/ 5 LEFT TRICEPS LACKS ANTIGRAVITY TRICEPS ON THE RIGHT. LEFT WRIST EXTENSORS 4/5 , RIGHT 3-/5. NO FUNCTIONAL MOTOR RETURN OF LOWER EXTREMITIES.) ICD10 Worksheet Patient Problems: Problems Problem Status Onset Spinal cord injury, cervical region Acute
[2018-12-20] MEDS: ENOXAPARIN 40 MG/0.4 ML SYR SC SCH (15:49)
[2018-12-20 19:12] LABS: PLATELET COUNT 198 10^3/uL (150-400)
[2018-12-21] MEDS: ACETAMINOPHEN 500 MG TAB PO SCH ×3 (05:56→19:00)
[2018-12-21] MEDS: BISACODYL 10 MG SUPP PR SCH (05:56)
[2018-12-21] MEDS: DEXAMETHASONE 2 MG TAB PO SCH ×2 (08:51→21:06)
[2018-12-21] MEDS: buPROPion 75 MG TAB PO SCH ×2 (08:51→21:06)
[2018-12-21] MEDS: PANTOPRAZOLE SODIUM 40 MG TAB PO SCH (08:52)
[2018-12-21] MEDS: DOCUSATE SODIUM 100 MG CAP PO SCH ×2 (08:52→21:06)
[2018-12-21] MEDS: valACYclovir 500 MG TAB PO SCH (08:52)
--- NOTE | 2018-12-21 10:56 | SOAPPROG ---
SOAP Progress Note Assessment/Plan: Assessment: Spinal cord dysfunction, C3 level, MONIE class 3, status post C3-T1 laminectomy and fusion on 11/24/2018 for resection of an ependymoma. * Initial functional independence measure is 57 on 12/16/2018. Working on upright tolerance. She spent 60 min in the tilt in space wheelchair, upright for a meal. She requires Farhan lift for transfer firs. She did a sliding board transfer with maximal assist of 2. She has trace movement in the lower extremities more so on the left than the right. She has full active range of motion with the upper extremities. She accomplished upper body dressing with moderate to maximal assist. Lower body dressing required total assist. She is incontinent of stool and insensate. * Physical therapy is initiating process of obtaining a power chair. * Continue PT and OT to optimize mobility and activities of daily living. Hyponatremia, with sodium 133 on 12/16/2018. 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 * Improved to 137 on 12/17/2018 but down to 130 on 12/20/2018. * Initiate 1000 cc per day fluid restriction starting 12/21/2018. Will also prescribe sodium chloride tablets 1000 mg three times daily with meals. * Recheck BMP on 12/23/2018. Neurogenic bowel * Getting daily bisacodyl suppository and docusate is prescribed. Appears to be having daily bowel movements. Neurogenic bladder * Continue scheduled voiding with postvoid residuals after each void. Given poor hand function, she is likely not a good candidate for intermittent catheterization any time soon. * Not requiring catheterization and has low postvoid resist. Low-grade fever and chills. * Urinalysis was unconvincing for UTI. No pulmonary symptoms other than reduced breath sounds. No signs of cellulitis and incision is healing very well. No leukocytosis on 12/20/2018. * Continue incentive spirometry. Continue to monitor for any symptoms of infection. Risk for autonomic dysreflexia. She appears to have intact sensation, but she may not have appropriate parasympathetic control. * Blood pressures and symptoms of distress will be monitored, and she will be treated with the autonomic dysreflexia protocol. * Will use nitroglycerin paste on a p.r.n. basis if non-pharmacologic measures are unsuccessful. * Has had no symptoms. Skin ulcer, right buttock, possibly from shear. 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 * Continue specialty mattress and q.2 hours turning schedule. * Valacyclovir started 12/17/2018. Continued 3 days total. Pulmonary.. * Has been assessed by Respiratory therapy. Achieving near normal pressures with incentive spirometry. Continue incentive spirometry. Contracture prevention. * No spasticity at present but will initiate spasticity of management with medications of a develops. * Podus boots while in bed to prevent ankle contractures. Low blood pressure.JB hose, abdominal binder, as needed for orthostatic symptoms. Elevated blood sugars in the hospital, likely due to dexamethasone with possible risk for diabetes mellitus, given her age and body habitus. * Occasional use of insulin initially on the rehabilitation unit. Insulin and blood sugar checks were discontinued as dexamethasone dose has come down. Prophylaxis for postoperative patient with spinal cord injury. She is on a dexamethasone taper, and this will be continued. * As her mobility is severely limited, she will also be continued on enoxaparin. * Will initiate GI prophylaxis with pantoprazole, as long as she is on both dexamethasone and enoxaparin. * Incentive spirometry, as she has a weak cough. * She is to wear her cervical collar at all times, except when showering. She has spinal precautions for the neck with no bending, twisting, or lifting greater than 10 pounds. DISPOSITION: Unclear whether destination is home or longterm facility. Mother is coming from [place] to assist in care. Tentative discharge date set for 01/06/2019. FOLLOWUP: She is to follow up with Neurosurgeon Dr. Palmer in approximately 2 weeks, which would be the week of December 22. She will most likely still be in rehabilitation, so followup needs will be discussed with Dr. Palmer, and if possible, she can remain on the rehabilitation unit, rather than going out. She will need referral to outpatient Physiatry and to primary care. 12/21/18 11:30 Subjective: Has been feeling cold. Nurse noted a low fever to 100.4. Has some head congestion and occasional cough. No dyspnea. No dysuria, no bladder pain. No constipation or diarrhea. Objective: Vital Signs Temp Pulse Resp BP Pulse Ox 36.9 C 90 18 86/58 L 96 12/21/18 10:30 12/21/18 10:30 12/21/18 10:30 12/21/18 10:30 12/21/18 10:30 Laboratory Results 12/20/18 16:10 12/20/18 19:30 12/20/18 12/21/18 12/22/18 05:59 05:59 05:59 Intake Total 1572 1000 500 Output Total 1550 1575 200 Balance 22 -575 300 Physical Exam - Physical Exam General Appearance: WD/WN, alert, no apparent distress Respiratory: normal breath sounds, decreased breath sounds, No crackles, No rhonchi, No wheezing Cardiac/Chest: No edema Skin: normal color, warm/dry ICD10 Worksheet Patient Problems: Problems Problem Status Onset Spinal cord injury, cervical region Acute
[2018-12-21] MEDS: SODIUM CHLORIDE 1,000 MG TAB PO SCH ×2 (12:14→17:41)
[2018-12-21] MEDS: ENOXAPARIN 40 MG/0.4 ML SYR SC SCH (16:29)
[2018-12-22] MEDS: ACETAMINOPHEN 500 MG TAB PO SCH ×3 (05:33→20:45)
[2018-12-22] MEDS: SODIUM CHLORIDE 1,000 MG TAB PO SCH ×3 (08:47→18:03)
[2018-12-22] MEDS: PANTOPRAZOLE SODIUM 40 MG TAB PO SCH (08:47)
[2018-12-22] MEDS: DEXAMETHASONE 2 MG TAB PO SCH ×2 (08:47→20:45)
[2018-12-22] MEDS: buPROPion 75 MG TAB PO SCH ×2 (08:48→20:45)
[2018-12-22] MEDS: DOCUSATE SODIUM 100 MG CAP PO SCH ×2 (08:48→20:45)
[2018-12-22] MEDS: BISACODYL 10 MG SUPP PR SCH (15:16)
[2018-12-22] MEDS: ENOXAPARIN 40 MG/0.4 ML SYR SC SCH (15:16)
--- NOTE | 2018-12-22 15:46 | SOAPPROG ---
SOAP Progress Note Assessment/Plan: Assessment: Spinal cord dysfunction, C3 level, MONIE class 3, status post C3-T1 laminectomy and fusion on 11/24/2018 for resection of an ependymoma. * Initial functional independence measure is 57 on 12/16/2018. Working on upright tolerance. She spent 60 min in the tilt in space wheelchair, upright for a meal. She requires Farhan lift for transfer firs. She did a sliding board transfer with maximal assist of 2. She has trace movement in the lower extremities more so on the left than the right. She has full active range of motion with the upper extremities. She accomplished upper body dressing with moderate to maximal assist. Lower body dressing required total assist. She is incontinent of stool and insensate. * Physical therapy is initiating process of obtaining a power chair. * Continue PT and OT to optimize mobility and activities of daily living. Hyponatremia, with sodium 133 on 12/16/2018. 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 * Improved to 137 on 12/17/2018 but down to 130 on 12/20/2018. * Initiate 1000 cc per day fluid restriction starting 12/21/2018. Will also prescribe sodium chloride tablets 1000 mg three times daily with meals. * Recheck BMP on 12/23/2018. Neurogenic bowel * Getting daily bisacodyl suppository and docusate is prescribed. Appears to be having daily bowel movements. Neurogenic bladder * Not requiring catheterization and has low postvoid residuals. Discontinue bladder scans. Continued scheduled toileting. Low-grade fever and chills, 12/20/2018. Resolved. * Urinalysis was unconvincing for UTI. Will not treat despite positive culture for E coli, as she has no symptoms. * No pulmonary symptoms other than reduced breath sounds. No signs of cellulitis and incision is healing very well. No leukocytosis on 12/20/2018. * Continue incentive spirometry. Continue to monitor for any symptoms of infection. Risk for autonomic dysreflexia. She appears to have intact sensation, but she may not have appropriate parasympathetic control. * Blood pressures and symptoms of distress will be monitored, and she will be treated with the autonomic dysreflexia protocol. * Will use nitroglycerin paste on a p.r.n. basis if non-pharmacologic measures are unsuccessful. * Has had no symptoms. Skin ulcer, right buttock, possibly from shear. 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 * Continue specialty mattress and q.2 hours turning schedule. * Valacyclovir started 12/17/2018. Continued 3 days total. Pulmonary.. * Has been assessed by Respiratory therapy. Achieving near normal pressures with incentive spirometry. Continue incentive spirometry. Contracture prevention. * No spasticity at present but will initiate spasticity of management with medications of a develops. * Podus boots while in bed to prevent ankle contractures. Low blood pressure. JB hose, abdominal binder, as needed for orthostatic symptoms. Elevated blood sugars in the hospital, likely due to dexamethasone with possible risk for diabetes mellitus, given her age and body habitus. * Occasional use of insulin initially on the rehabilitation unit. Insulin and blood sugar checks were discontinued as dexamethasone dose has come down. Prophylaxis for postoperative patient with spinal cord injury. She is on a dexamethasone taper, and this will be continued. * As her mobility is severely limited, she will also be continued on enoxaparin. * Will initiate GI prophylaxis with pantoprazole, as long as she is on both dexamethasone and enoxaparin. * Incentive spirometry, as she has a weak cough. * She is to wear her cervical collar at all times, except when showering. She has spinal precautions for the neck with no bending, twisting, or lifting greater than 10 pounds. DISPOSITION: Unclear whether destination is home or custodial facility. Mother is coming from [place] to assist in care. Tentative discharge date set for 01/06/2019. FOLLOWUP: She is to follow up with Neurosurgeon Dr. Palmer in approximately 6 weeks post surgery, which would be January 04. Discucsed with neurosurgery RACHANA West, 12/22/2017. She an follow up after discharge. 12/22/18 15:41 Subjective: No complaints. Denies dysuria or urinary frequency. Has some discomfort from the cervical collar. Objective: Vital Signs Temp Pulse Resp BP Pulse Ox 36.5 C 77 16 98/62 L 93 12/22/18 06:43 12/22/18 06:43 12/22/18 06:43 12/22/18 06:43 12/22/18 06:43 Microbiology 12/20/18 20:45 Urine Culture - Final Urine,Clean Catch Escherichia Coli Laboratory Results 12/20/18 16:10 12/20/18 19:30 12/21/18 12/22/18 12/23/18 05:59 05:59 05:59 Intake Total 1000 1310 100 Output Total 1575 1150 300 Balance -575 160 -200 Physical Exam - Physical Exam General Appearance: WD/WN, alert, no apparent distress Respiratory: No respiratory distress, No accessory muscle use Skin: normal color, warm/dry Extremities: No swelling Neuro/Psych: alert, normal mood/affect, oriented x 3, motor weakness ICD10 Worksheet Patient Problems: Problems Problem Status Onset Spinal cord injury, cervical region Acute
[2018-12-23] MEDS: ACETAMINOPHEN 500 MG TAB PO SCH ×3 (06:22→20:48)
[2018-12-23] MEDS: PANTOPRAZOLE SODIUM 40 MG TAB PO SCH (09:24)
[2018-12-23] MEDS: DOCUSATE SODIUM 100 MG CAP PO SCH ×2 (09:24→20:47)
[2018-12-23] MEDS: DEXAMETHASONE 2 MG TAB PO SCH ×2 (09:25→20:47)
[2018-12-23] MEDS: buPROPion 75 MG TAB PO SCH ×2 (09:25→20:47)
[2018-12-23] MEDS: SODIUM CHLORIDE 1,000 MG TAB PO SCH ×3 (09:25→18:11)
--- NOTE | 2018-12-23 14:22 | SOAPPROG ---
SOAP Progress Note Assessment/Plan: Assessment: Spinal cord dysfunction, C3 level, MONIE class 3, status post C3-T1 laminectomy and fusion on 11/24/2018 for resection of an ependymoma. * Initial functional independence measure is 54 on 12/16/2018; no change as of 12/23. Has increased control of trunk and arms but not yet reflected in any gains in function. She requires Farhan lift for transfer. She did a sliding board transfer with maximal assist of 2. She has trace movement in the lower extremities more so on the left than the right. She has full active range of motion with the upper extremities. She accomplished upper body dressing with moderate to maximal assist. Lower body dressing required total assist. She is incontinent of stool and insensate regarding urge to defecate. * Physical therapy is initiating process of obtaining a power chair. * Continue PT and OT to optimize mobility and activities of daily living. Hyponatremia, with sodium 133 on 12/16/2018. 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 * Improved to 137 on 12/17/2018 but down to 130 on 12/20/2018. * Initiate 1000 cc per day fluid restriction starting 12/21/2018. Will also prescribe sodium chloride tablets 1000 mg three times daily with meals. * Normal BMP on 12/23/2018. Neurogenic bowel * Getting daily bisacodyl suppository and docusate is prescribed. Appears to be having daily bowel movements. Neurogenic bladder * Not requiring catheterization and has low postvoid residuals. Discontinue bladder scans. Continued scheduled toileting. Adjustment disorder with depressed mood. * Initiate citalopram 10 mg q.day starting 12/24/2018. If tolerated, will titrate to 20 mg. * billing services manager is available for counseling. Low-grade fever and chills, 12/20/2018. Resolved. * Urinalysis was unconvincing for UTI. Will not treat despite positive culture for E coli, as she has no symptoms. * No pulmonary symptoms other than reduced breath sounds. No signs of cellulitis and incision is healing very well. No leukocytosis on 12/20/2018. * Continue incentive spirometry. Continue to monitor for any symptoms of infection. Risk for autonomic dysreflexia. She appears to have intact sensation, but she may not have appropriate parasympathetic control. * Blood pressures and symptoms of distress will be monitored, and she will be treated with the autonomic dysreflexia protocol. * Will use nitroglycerin paste on a p.r.n. basis if non-pharmacologic measures are unsuccessful. * Has had no symptoms. Skin ulcer, right buttock, possibly from shear. 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 * Continue specialty mattress and q.2 hours turning schedule. * Valacyclovir started 12/17/2018. Continued 3 days total. Pulmonary.. * Has been assessed by Respiratory therapy. Achieving near normal pressures with incentive spirometry. Continue incentive spirometry. Contracture prevention. * No spasticity at present but will initiate spasticity of management with medications of a develops. * Podus boots while in bed to prevent ankle contractures. Low blood pressure. JB hose, abdominal binder, as needed for orthostatic symptoms. Elevated blood sugars in the hospital, likely due to dexamethasone with possible risk for diabetes mellitus, given her age and body habitus. * Occasional use of insulin initially on the rehabilitation unit. Insulin and blood sugar checks were discontinued as dexamethasone dose has come down. Prophylaxis for postoperative patient with spinal cord injury. She is on a dexamethasone taper, and this will be continued. * As her mobility is severely limited, she will also be continued on enoxaparin. * Will initiate GI prophylaxis with pantoprazole, as long as she is on both dexamethasone and enoxaparin. * Incentive spirometry, as she has a weak cough. * She is to wear her cervical collar at all times, except when showering. She has spinal precautions for the neck with no bending, twisting, or lifting greater than 10 pounds. DISPOSITION: Attended staffing, 15 min. Discussed with case management, dietitian, nursing, PT, OT. Unclear whether destination is home or nursing home facility. Mother is coming from [place] to assist in care. Family conference set for 12/28/2018. Tentative discharge date set for 12/30/2018. FOLLOWUP: She is to follow up with Neurosurgeon Dr. Palmer in approximately 6 weeks post surgery, which would be January 04. Discucsed with neurosurgery RACHANA West, 12/22/2017. She an follow up after discharge. 12/22/18 15:41 12/23/18 14:17 Subjective: Staff reports she has been tearful today regarding her prognosis and discharge options. She has some discomfort from the cervical collar approximately 2/10. She denies cough or dyspnea. She denies fevers or chills. She is sleeping well. She acknowledges depressed feelings. Objective: Vital Signs Temp Pulse Resp BP Pulse Ox 36.5 C 78 15 86/58 L 95 12/23/18 06:42 12/23/18 06:42 12/23/18 06:42 12/23/18 06:42 12/23/18 06:42 Microbiology 12/20/18 20:45 Urine Culture - Final Urine,Clean Catch Escherichia Coli Laboratory Results 12/20/18 16:10 12/23/18 06:05 12/22/18 12/23/18 12/24/18 05:59 05:59 05:59 Intake Total 1310 550 200 Output Total 1150 1250 550 Balance 160 -700 -350 - Time Spent With Patient Time Spent With Patient: Greater than 35 min floor time today, including more than 50% of time in coordination of care during staffing meeting, and counseling patient. Physical Exam - Physical Exam General Appearance: WD/WN, alert, no apparent distress Respiratory: normal breath sounds, No crackles, No rhonchi, No wheezing Cardiac/Chest: regular rate, rhythm, No edema, No diastolic murmur, No systolic murmur Skin: normal color, warm/dry Neuro/Psych: alert, normal mood/affect, oriented x 3, motor weakness (Lower extremities with near flaccid paralysis. No increased tone. Has full range of motion but weakness bilateral upper extremities.) ICD10 Worksheet Patient Problems: Problems Problem Status Onset Spinal cord injury, cervical region Acute
[2018-12-23] MEDS: ENOXAPARIN 40 MG/0.4 ML SYR SC SCH (18:11)
[2018-12-23] MEDS: BISACODYL 10 MG SUPP PR SCH (18:11)
[2018-12-24] MEDS: ACETAMINOPHEN 500 MG TAB PO SCH ×3 (06:23→21:51)
[2018-12-24] MEDS: SODIUM CHLORIDE 1,000 MG TAB PO SCH ×3 (08:21→17:23)
[2018-12-24] MEDS: PANTOPRAZOLE SODIUM 40 MG TAB PO SCH (08:21)
[2018-12-24] MEDS: DOCUSATE SODIUM 100 MG CAP PO SCH ×2 (08:21→21:51)
[2018-12-24] MEDS: DEXAMETHASONE 2 MG TAB PO SCH ×2 (08:21→21:52)
[2018-12-24] MEDS: buPROPion 75 MG TAB PO SCH ×2 (08:21→21:51)
[2018-12-24] MEDS: CITALOPRAM 20 MG TAB PO SCH (08:22)
--- NOTE | 2018-12-24 13:36 | SOAPPROG ---
SOAP Progress Note Assessment/Plan: Assessment: 48 YO Woman with SCI Spinal cord dysfunction, C3 level, MONIE class 3, status post C3-T1 laminectomy and fusion on 11/24/2018 for resection of an ependymoma. * Initial functional independence measure is 54 on 12/16/2018; no change as of 12/23. Has increased control of trunk and arms but not yet reflected in any gains in function. She requires Farhan lift for transfer. She did a sliding board transfer with maximal assist of 2. She has trace movement in the lower extremities more so on the left than the right. She has full active range of motion with the upper extremities. She accomplished upper body dressing with moderate to maximal assist. Lower body dressing required total assist. She is incontinent of stool and insensate regarding urge to defecate. * Physical therapy is initiating process of obtaining a power chair. * Continue PT and OT to optimize mobility and activities of daily living. Hyponatremia, with sodium 133 on 12/16/2018, 137 on 12/17,, 130 on 12/20, 136 on 12/23. 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 * Initiated 1000 cc per day fluid restriction starting 12/21/2018, and sodium chloride tablets 1000 mg three times daily with meals. * Normal BMP on 12/23/2018. * Repeat Na in am 12/25. Neurogenic bowel * Cont current plan; Getting daily bisacodyl suppository and docusate is prescribed. Appears to be having daily bowel movements. Neurogenic bladder * Not requiring catheterization and has low postvoid residuals. Discontinue bladder scans. Continued scheduled toileting. Adjustment disorder with depressed mood. * Initiate citalopram 10 mg q.day starting 12/24/2018. If tolerated, will titrate to 20 mg. * cyber workforce developer and manager is available for counseling. Low-grade fever and chills, 12/20/2018. Resolved. * Urinalysis was unconvincing for UTI. Will not treat despite positive culture for E coli, as she has no symptoms. * No pulmonary symptoms other than reduced breath sounds. No signs of cellulitis and incision is healing very well. No leukocytosis on 12/20/2018. * Continue incentive spirometry. Continue to monitor for any symptoms of infection. Risk for autonomic dysreflexia. She appears to have intact sensation, but she may not have appropriate parasympathetic control. * Blood pressures and symptoms of distress will be monitored, and she will be treated with the autonomic dysreflexia protocol. * Will use nitroglycerin paste on a p.r.n. basis if non-pharmacologic measures are unsuccessful. * Has had no symptoms. Skin ulcer, right buttock, possibly from shear. 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 * Continue specialty mattress and q.2 hours turning schedule. * Valacyclovir started 12/17/2018. Continued 3 days total. Pulmonary.. * Has been assessed by Respiratory therapy. Achieving near normal pressures with incentive spirometry. Continue incentive spirometry. Low blood pressure. 93/69 this am. Cont JB hose, abdominal binder, as needed for orthostatic symptoms. Elevated blood sugars in the hospital, likely due to dexamethasone with possible risk for diabetes mellitus, given her age and body habitus. * Occasional use of insulin initially on the rehabilitation unit. Insulin and blood sugar checks were discontinued as dexamethasone dose has come down. Prophylaxis for postoperative patient with spinal cord injury. She is on a dexamethasone taper, and this will be continued. * As her mobility is severely limited, she will also be continued on enoxaparin. * Will initiate GI prophylaxis with pantoprazole, as long as she is on both dexamethasone and enoxaparin. * Incentive spirometry, as she has a weak cough. * She is to wear her cervical collar at all times, except when showering. She has spinal precautions for the neck with no bending, twisting, or lifting greater than 10 pounds. * Podus boots while in bed to prevent ankle contractures. DISPOSITION: Unclear whether destination is home or custodial facility. Mother is coming from [place] to assist in care. Family conference set for 12/28/2018. Tentative discharge date set for 12/30/2018. FOLLOWUP: She is to follow up with Neurosurgeon Dr. Palmer in approximately 6 weeks post surgery, which would be January 04. Plan: Cont Dr Workman rehab treatment plan 12/24/18 13:36 12/24/18 13:43 Subjective: Tearful, but engaging Seen in presence of Geriatrician No new problems or C/O's Admits to being thirsty since evening of 12/23, and feels the impact of 100cc H2O restriction. No F/C/CP/SOB/N/V/D/C Objective: Vital Signs Temp Pulse Resp BP Pulse Ox 36.7 C 90 16 93/69 L 93 12/24/18 11:30 12/24/18 11:30 12/24/18 11:30 12/24/18 11:30 12/24/18 11:30 Laboratory Results 12/20/18 16:10 12/23/18 06:05 12/23/18 12/24/18 12/25/18 05:59 05:59 05:59 Intake Total 550 1000 600 Output Total 1250 1800 Balance -700 -800 600 Physical Exam - Physical Exam General Appearance: alert, no apparent distress Neck: supple Respiratory: lungs clear Cardiac/Chest: regular rate, rhythm Abdomen: normal bowel sounds, soft Skin: normal color, warm/dry Neuro/Psych: alert, normal mood/affect, oriented x 3, abnormal gait, motor weakness, sensory deficit, depressed affect, other (no gross changes), No cognition abnormalities, No speech abnormalities ICD10 Worksheet Patient Problems: Problems Problem Status Onset Spinal cord injury, cervical region Acute
[2018-12-24] MEDS: BISACODYL 10 MG SUPP PR SCH (16:42)
[2018-12-24] MEDS: ENOXAPARIN 40 MG/0.4 ML SYR SC SCH (16:42)
[2018-12-25] MEDS: ACETAMINOPHEN 500 MG TAB PO SCH ×3 (04:57→20:44)
[2018-12-25 07:38] LABS: PLATELET COUNT 230 10^3/uL (150-400)
[2018-12-25] MEDS: CITALOPRAM 20 MG TAB PO SCH (09:16)
[2018-12-25] MEDS: buPROPion 75 MG TAB PO SCH ×2 (09:16→20:45)
[2018-12-25] MEDS: SODIUM CHLORIDE 1,000 MG TAB PO SCH ×3 (09:16→17:17)
[2018-12-25] MEDS: DOCUSATE SODIUM 100 MG CAP PO SCH ×2 (09:17→20:45)
[2018-12-25] MEDS: PANTOPRAZOLE SODIUM 40 MG TAB PO SCH (09:17)
[2018-12-25] MEDS: DEXAMETHASONE 2 MG TAB PO SCH (09:17)
[2018-12-25] MEDS ORDERED: IOHEXOL 350mgI/ML (OMNIPAQUE) 150 ML BTL IV ONE (11:51)
--- NOTE | 2018-12-25 13:21 | SOAPPROG ---
SOAP Progress Note Assessment/Plan: Assessment: 48 YO Woman with SCI Update: Pt with temp 101, this am brought down to 99 on tylenol. Mild tachycardia 100-120, O2 sats 91-95%. WBC nl. UA unremarkable. No SOB, CP. But pt noted to have shallow respirations. PT sent for CTA, whic was negative for PE. Spinal cord dysfunction, C3 level, MONIE class 3, status post C3-T1 laminectomy and fusion on 11/24/2018 for resection of an ependymoma. * Initial functional independence measure is 54 on 12/16/2018; no change as of 12/23. Has increased control of trunk and arms but not yet reflected in any gains in function. She requires Farhan lift for transfer. She did a sliding board transfer with maximal assist of 2. She has trace movement in the lower extremities more so on the left than the right. She has full active range of motion with the upper extremities. She accomplished upper body dressing with moderate to maximal assist. Lower body dressing required total assist. She is incontinent of stool and insensate regarding urge to defecate. * Physical therapy is initiating process of obtaining a power chair. * Continue PT and OT to optimize mobility and activities of daily living. Hyponatremia, with sodium 133 on 12/16/2018, 137 on 12/17,, 130 on 12/20, 136 on 12/23. 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 * Cont 1000 cc per day fluid restriction (started 12/21/2018), and sodium chloride tablets 1000 mg three times daily with meals. Neurogenic bowel * Cont current plan; Getting daily bisacodyl suppository and docusate is prescribed. Appears to be having daily bowel movements. Neurogenic bladder * Not requiring catheterization and has low postvoid residuals. Discontinue bladder scans. Continued scheduled toileting. Adjustment disorder with depressed mood. * Initiate citalopram 10 mg q.day starting 12/24/2018. If tolerated, will titrate to 20 mg. * regional business manager is available for counseling. Risk for autonomic dysreflexia. BP's consistently running low. She appears to have intact sensation, but she may not have appropriate parasympathetic control. * Blood pressures and symptoms of distress will be monitored, and she will be treated with the autonomic dysreflexia protocol. * Will use nitroglycerin paste on a p.r.n. basis if non-pharmacologic measures are unsuccessful. Low blood pressure. 88/68 this am. Cont JB hose, abdominal binder, as needed for orthostatic symptoms. Skin ulcer, right buttock, possibly from shear. 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 * Continue specialty mattress and q.2 hours turning schedule. * Valacyclovir started 12/17/2018. Continued 3 days total. Elevated blood sugars in the hospital, likely due to dexamethasone with possible risk for diabetes mellitus, given her age and body habitus. * Occasional use of insulin initially on the rehabilitation unit. Insulin and blood sugar checks were discontinued as dexamethasone dose has come down. Prophylaxis for postoperative patient with spinal cord injury. She is on a dexamethasone taper, and this will be continued. * As her mobility is severely limited, she will also be continued on enoxaparin. * Will initiate GI prophylaxis with pantoprazole, as long as she is on both dexamethasone and enoxaparin. * Incentive spirometry, as she has a weak cough. * She is to wear her cervical collar at all times, except when showering. She has spinal precautions for the neck with no bending, twisting, or lifting greater than 10 pounds. * Podus boots while in bed to prevent ankle contractures. DISPOSITION: Unclear whether destination is home or intermediate facility. Mother is coming from [place] to assist in care. Family conference set for 12/28/2018. Tentative discharge date set for 12/30/2018. FOLLOWUP: She is to follow up with Neurosurgeon Dr. Palmer in approximately 6 weeks post surgery, which would be January 04. Plan: Cont Dr Wallace's rehab treatment plan. Continue to monitor vitals, temps , labs to determine source. 12/25/18 13:23 Subjective: Fever, tachy No tachypnea, SOB, CP No GI c/o's. Good BM yest Objective: Vital Signs Temp Pulse Resp BP Pulse Ox 37.4 C 112 H 20 88/68 L 95 12/25/18 11:30 12/25/18 11:30 12/25/18 11:30 12/25/18 11:30 12/25/18 11:30 Laboratory Results 12/25/18 06:40 12/25/18 06:40 12/24/18 12/25/18 12/26/18 05:59 05:59 05:59 Intake Total 1000 880 120 Output Total 1800 1250 500 Balance -800 370 -953 Physical Exam - Physical Exam General Appearance: alert Neck: supple Respiratory: lungs clear Cardiac/Chest: tachycardia Abdomen: normal bowel sounds, non-tender, soft, No distended, No guarding Skin: normal color, warm/dry, No rash Neuro/Psych: alert, normal mood/affect, oriented x 3, motor weakness, sensory deficit, other (no acute changes), No cognition abnormalities, No speech abnormalities ICD10 Worksheet Patient Problems: Problems Problem Status Onset Spinal cord injury, cervical region Acute
[2018-12-25] MEDS ORDERED: NS 1,000 ML IV SCH (14:45)
[2018-12-25] MEDS: ENOXAPARIN 40 MG/0.4 ML SYR SC SCH (17:17)
[2018-12-25] MEDS: BISACODYL 10 MG SUPP PR SCH (18:11)
[2018-12-25] MEDS ORDERED: ENOXAPARIN 30 MG/0.3 ML SYR SC SCH (21:00)
[2018-12-26] MEDS ORDERED: D5W 1/2 NS 1,000 ML IV SCH (00:30)
[2018-12-26] MEDS: ACETAMINOPHEN 500 MG TAB PO SCH ×3 (05:43→20:09)
[2018-12-26] MEDS: DEXAMETHASONE 2 MG TAB PO SCH (08:31)
[2018-12-26] MEDS: CITALOPRAM 20 MG TAB PO SCH (08:31)
[2018-12-26] MEDS: buPROPion 75 MG TAB PO SCH ×2 (08:31→20:09)
[2018-12-26] MEDS: SODIUM CHLORIDE 1,000 MG TAB PO SCH ×3 (08:31→17:28)
[2018-12-26] MEDS: PANTOPRAZOLE SODIUM 40 MG TAB PO SCH (08:31)
[2018-12-26] MEDS: DOCUSATE SODIUM 100 MG CAP PO SCH ×2 (08:31→20:09)
[2018-12-26] MEDS ORDERED: ENOXAPARIN 30 MG/0.3 ML SYR SC SCH (09:00)
--- NOTE | 2018-12-26 15:00 | SOAPPROG ---
SOAP Progress Note Assessment/Plan: Assessment: Spinal cord dysfunction, C3 level, MONIE class 3, status post C3-T1 laminectomy and fusion on 11/24/2018 for resection of an ependymoma. * Initial functional independence measure is 54 on 12/16/2018; no change as of 12/23. Has increased control of trunk and arms but not yet reflected in any gains in function. She requires Farhan lift for transfer. She did a sliding board transfer with maximal assist of 2. She has trace movement in the lower extremities more so on the left than the right. She has full active range of motion with the upper extremities. She accomplished upper body dressing with moderate to maximal assist. Lower body dressing required total assist. She is incontinent of stool and insensate regarding urge to defecate. * Physical therapy is initiating process of obtaining a power chair. * Continue PT and OT to optimize mobility and activities of daily living. Hyponatremia, with sodium 133 on 12/16/2018. 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 * Improved to 137 on 12/17/2018 but down to 130 on 12/20/2018. * Initiate 1000 cc per day fluid restriction starting 12/21/2018. Will also prescribe sodium chloride tablets 1000 mg three times daily with meals. * Normal BMP on 12/23/2018. Na 134 on 12/26/2018. Fevers, likely neurogenic. * Labs and CT scan negative for pneumonia, pulmonary embolus, UTI. Normal white blood cell count, normal ESR and CRP. * Await blood culture results. If positive will assess further regarding possible osteomyelitis. * Continue incentive spirometry. Continue to monitor for any symptoms of infection. Neurogenic bowel * Getting daily bisacodyl suppository and docusate is prescribed. Appears to be having daily bowel movements. Neurogenic bladder * Not requiring catheterization and has low postvoid residuals. Discontinue bladder scans. Continued scheduled toileting. Adjustment disorder with depressed mood. * Initiate citalopram 10 mg q.day starting 12/24/2018. Continue bupropion. * donor relations manager is available for counseling. Risk for autonomic dysreflexia. She appears to have intact sensation, but she may not have appropriate parasympathetic control. * Blood pressures and symptoms of distress will be monitored, and she will be treated with the autonomic dysreflexia protocol. * Will use nitroglycerin paste on a p.r.n. basis if non-pharmacologic measures are unsuccessful. * Has had no symptoms. Skin ulcer, right buttock, possibly from shear. Resolved. 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 * Valacyclovir started 12/17/2018. Continued 3 days total. Pulmonary.. * Has been assessed by Respiratory therapy. Achieving near normal pressures with incentive spirometry. Continue incentive spirometry. Contracture prevention. * No spasticity at present but will initiate spasticity of management with medications of a develops. * Podus boots while in bed to prevent ankle contractures. Low blood pressure. JB hose, abdominal binder, as needed for orthostatic symptoms. Elevated blood sugars in the hospital, likely due to dexamethasone with possible risk for diabetes mellitus, given her age and body habitus. * Occasional use of insulin initially on the rehabilitation unit. Insulin and blood sugar checks were discontinued as dexamethasone dose has come down. Prophylaxis for postoperative patient with spinal cord injury. She is on a dexamethasone taper, and this will be continued. * As her mobility is severely limited, she will also be continued on enoxaparin. * Will initiate GI prophylaxis with pantoprazole, as long as she is on both dexamethasone and enoxaparin. * Incentive spirometry, as she has a weak cough. * She is to wear her cervical collar at all times, except when showering. She has spinal precautions for the neck with no bending, twisting, or lifting greater than 10 pounds. DISPOSITION: Unclear whether destination is home or jail facility. Mother is coming from [place] to assist in care. Family conference set for 2018. Tentative discharge date set for 12/30/2018. FOLLOWUP: She is to follow up with Neurosurgeon Dr. Palmer in approximately 6 weeks post surgery, which would be January 04. Discussed with neurosurgery RACHANA West, 12/22/2017. She an follow up after discharge. 12/26/18 14:56 Subjective: No complaints. Sleeping well. Not in pain. Had fevers over the weekend but not since. No cough or dyspnea. No dysuria. Feeling a little bit stronger. Objective: Vital Signs Temp Pulse Resp BP Pulse Ox 36.8 C 80 16 94/61 L 96 12/26/18 08:00 12/26/18 08:00 12/26/18 08:00 12/26/18 08:00 12/26/18 08:00 Laboratory Results 12/26/18 06:00 12/26/18 06:00 12/25/18 12/26/18 12/27/18 05:59 05:59 05:59 Intake Total 880 1830 Output Total 1250 2550 1500 Balance -370 -474 -1500 Physical Exam - Physical Exam General Appearance: WD/WN, alert, no apparent distress Respiratory: normal breath sounds, No crackles, No rhonchi, No wheezing Cardiac/Chest: regular rate, rhythm, No edema, No diastolic murmur, No systolic murmur Skin: normal color, warm/dry Neuro/Psych: alert, normal mood/affect, motor weakness (Lower extremities greater than upper extremities) ICD10 Worksheet Patient Problems: Problems Problem Status Onset Spinal cord injury, cervical region Acute
[2018-12-26] MEDS: ENOXAPARIN 40 MG/0.4 ML SYR SC SCH (16:02)
[2018-12-26] MEDS: BISACODYL 10 MG SUPP PR SCH (16:02)
[2018-12-27] MEDS: ACETAMINOPHEN 500 MG TAB PO SCH ×3 (06:03→21:56)
[2018-12-27] MEDS: DEXAMETHASONE 2 MG TAB PO SCH (08:35)
[2018-12-27] MEDS: SODIUM CHLORIDE 1,000 MG TAB PO SCH ×3 (08:35→18:23)
[2018-12-27] MEDS: buPROPion 75 MG TAB PO SCH ×2 (08:35→21:56)
[2018-12-27] MEDS: CITALOPRAM 20 MG TAB PO SCH (08:35)
[2018-12-27] MEDS: PANTOPRAZOLE SODIUM 40 MG TAB PO SCH (08:35)
[2018-12-27] MEDS: DOCUSATE SODIUM 100 MG CAP PO SCH ×2 (08:35→21:56)
[2018-12-27] MEDS ORDERED: PETROLAT,WHT/MIN OIL/SOD CHL 3.5 GM OPHT.OINT EACHEYE PRN (08:57)
[2018-12-27] MEDS ORDERED: CARBOXYMETHYLCELLULOSE 1% 0.4 ML DROPERETTE OP PRN (08:59)
--- NOTE | 2018-12-27 10:03 | SOAPPROG ---
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 Today's update: Overall making good rehabilitation progress. Patient has longstanding history of eye dryness at night, increasing the frequency of lubrication drops and adding Lacri-Lube for eye protection comfort. Functionally, requiring Farhan lift for transfers most of the time, however has done a sliding board transfer with max assist of 2. Working on power wheelchair and maximizing independence and direction of care. Fevers have not recurred, has not developed other localizing symptoms of infection. Fevers are likely related to spinal cord injury and impaired temperature management. Daily bowel movements occurring with bowel program, low postvoid residuals without catheterization. Team with cog concerns, ordering MOLD PRESS OPERATOR screen. Discharge planning will be extremely complex with this patient. Nontraumatic incomplete cervical level spinal cord injury, C3 AIS C: * Cardiovascular: Patient is at risk for autonomic dysreflexia but per reports have not demonstrated signs or symptoms showing that this is orally a problem. The orders for management of autonomic dysreflexia by nursing, p.r.n. Orders for nitropaste and hydralazine as he had adjunctive medications. * Orthostatic hypotension: Reporting that abdominal binder and Zane hose are helpful for blood pressure management when mobilizing. Can consider pharmacologic strategies for blood pressure support such as midodrine if necessary. * Neurogenic bowel: regular bowel program including suppository and digital stimulation. Goal is a daily bowel program to be performed at the beginning or end of day not interfering with therapy with the goal to completely prevent incontinence. 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 * Neurogenic skin: Q 2 hr turns in bed, acute 15 min adjustment while in a wheelchair. Skin checks twice a day, education and Mirror. Wound care for pressure ulcer. * Pulmonary: Patient has a weak cough and likely has neuromuscular impairment of the chest wall, encouraging incentive spirometry. Low threshold for respiratory therapy evaluation. We do not have a cough assist available in house, but would discuss further with respiratory therapy if secretion management is an issue. * Contracture prevention: Orthotics for maintenance of range of motion in lower limbs * Additional sequelae of spinal cord injury: She will require follow-up with Physical Medicine Rehabilitation for bladder monitoring and prevention of complications * Discharge planning: Patient will be working with staff to identify a area physical medicine rehabilitation physician to manage spinal cord injury issues after discharge, including monitoring renal function, ongoing Prosthetics orthotics needs, wheelchair needs. * Mobility planning: Overall prognosis is guarded, discussed with team the need to be thinking about powered mobility and lift access early in the course. * Spinal cord injury education: Printed off information in Montserratian and Cymraes to be covered with the patient by staff. Patient noted that she prefers information in Montserratian, spoken. Unclear what her baseline literacy level is, we will recruit family members to help with this process as well. Her symptom history is also unclear at times, may require additional re-education * DVT prophylaxis: This should continue for 12 weeks after injury with low molecular weight heparin * Follow up with Neurosurgery for additional monitoring and treatment of tumor diagnosis. Additional issues reviewed without change include hyponatremia, adjustment disorder with depressed mood, skin ulceration, elevated blood sugars. A total of 35 min was spent on the floor in the care of the patient, the majority of which was spent counseling and coordination of care regarding spinal cord specific issues with the patient as well as staff. 12/15/18 13:03 12/27/18 09:49 12/27/18 12:59 Subjective: Chief complaint: Dry eyes No acute events overnight. Patient denies any new shortness of breath or chest pain, no new numbness, tingling, or weakness. She endorses a longstanding history of dry eyes that occurs at night, rarely during the day, associated with eye redness. No vision changes, no pain associated with her eyes. She does endorse some photophobia with some light for years, but not with typical levels of light. No prior diagnosis per her report. She feels that therapy is going fine, she feels like she is making neurological progress with increased strength and sensation. Endorses regular bowel movements and urinating without incontinence. No pain. Objective: Vital Signs Temp Pulse Resp BP Pulse Ox 36.8 C 75 15 90/74 L 96 12/26/18 20:00 12/26/18 20:00 12/26/18 20:00 12/26/18 20:00 12/26/18 20:00 Laboratory Results 12/26/18 06:00 12/26/18 06:00 12/26/18 12/27/18 12/28/18 05:59 05:59 05:59 Intake Total 1830 550 Output Total 2550 2000 Balance -720 -1450 Physical Exam - Physical Exam General Appearance: WD/WN, alert, no apparent distress, other (Sitting in a power wheelchair, self feeding with freelance interpreter/translator at her side. Cub Reporter used for this encounter) EENT: other (No injected conjunctiva), No scleral icterus (R), No scleral icterus (L) Neck: other (C-collar in place) Respiratory: lungs clear, normal breath sounds, other (No cough), No respiratory distress, No accessory muscle use, No stridor, No wheezing Cardiac/Chest: normal peripheral pulses, regular rate, rhythm, No edema Abdomen: other (Abdominal binder in place) Skin: normal color, warm/dry, No cyanosis, No diaphoresis Extremities: No pedal edema, No swelling Neuro/Psych: alert, normal mood/affect, motor weakness ICD10 Worksheet Patient Problems: Problems Problem Status Onset Spinal cord injury, cervical region Acute
[2018-12-27] MEDS: BISACODYL 10 MG SUPP PR SCH (16:19)
[2018-12-27] MEDS: ENOXAPARIN 40 MG/0.4 ML SYR SC SCH (16:19)
[2018-12-27] MEDS: CARBOXYMETHYLCELLULOSE 1% 0.4 ML DROPERETTE EACHEYE SCH (22:00)
[2018-12-28] MEDS: ACETAMINOPHEN 500 MG TAB PO SCH ×3 (05:47→21:30)
[2018-12-28] MEDS: SODIUM CHLORIDE 1,000 MG TAB PO SCH ×3 (08:51→17:43)
[2018-12-28] MEDS: CITALOPRAM 20 MG TAB PO SCH (08:52)
[2018-12-28] MEDS: buPROPion 75 MG TAB PO SCH ×2 (08:52→21:30)
[2018-12-28] MEDS: DOCUSATE SODIUM 100 MG CAP PO SCH ×2 (08:53→21:30)
[2018-12-28] MEDS: PANTOPRAZOLE SODIUM 40 MG TAB PO SCH (08:53)
--- NOTE | 2018-12-28 12:36 | SOAPPROG ---
SOAP Progress Note Assessment/Plan: Assessment: Spinal cord dysfunction, C3 level, MONIE class 3, status post C3-T1 laminectomy and fusion on 11/24/2018 for resection of an ependymoma. * Initial functional independence measure is 54 on 12/16/2018; no change as of 12/23; improved to 56 as of 12/28/2018. Has increased control of trunk and arms but not yet reflected in any gains in function. She requires Farhan lift for transfer. She did a sliding board transfer with maximal assist of 2. She has trace movement in the lower extremities more so on the left than the right. She has full active range of motion with the upper extremities. She accomplished upper body dressing with moderate to maximal assist. Lower body dressing required total assist. She is incontinent of stool and insensate regarding urge to defecate. * Continue PT and OT to optimize mobility and activities of daily living. Hyponatremia, with sodium 133 on 12/16/2018. 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 * Improved to 137 on 12/17/2018 but down to 130 on 12/20/2018. * Initiate 1000 cc per day fluid restriction starting 12/21/2018. Will also prescribe sodium chloride tablets 1000 mg three times daily with meals. * Normal BMP on 12/23/2018. Na 134 on 12/26/2018. Fevers, likely neurogenic. * Labs and CT scan negative for pneumonia, pulmonary embolus, UTI. Normal white blood cell count, normal ESR and CRP. * Await blood culture results; preliminary cultures are negative.. If positive will assess further regarding possible osteomyelitis. * Continue incentive spirometry. Continue to monitor for any symptoms of infection. Neurogenic bowel * Getting daily bisacodyl suppository and docusate is prescribed. Having daily bowel movements. Neurogenic bladder * Not requiring catheterization and has low postvoid residuals. Discontinue bladder scans. Continued scheduled toileting. Adjustment disorder with depressed mood. * Initiate citalopram 10 mg q.day starting 12/24/2018. Continue bupropion. * transportation dispatch manager is available for counseling. Risk for autonomic dysreflexia. She appears to have intact sensation, but she may not have appropriate parasympathetic control. * Blood pressures and symptoms of distress will be monitored, and she will be treated with the autonomic dysreflexia protocol. * Will use nitroglycerin paste on a p.r.n. basis if non-pharmacologic measures are unsuccessful. * Has had no symptoms. Skin ulcer, right buttock, possibly from shear. Resolved. 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 * Valacyclovir started 12/17/2018. Continued 3 days total. Pulmonary.. * Has been assessed by Respiratory therapy. Achieving near normal pressures with incentive spirometry. Continue incentive spirometry. Contracture prevention. * No spasticity at present but will initiate spasticity of management with medications of a develops. * Podus boots while in bed to prevent ankle contractures. Low blood pressure. JB hose, abdominal binder, as needed for orthostatic symptoms. Elevated blood sugars in the hospital, likely due to dexamethasone with possible risk for diabetes mellitus, given her age and body habitus. * Occasional use of insulin initially on the rehabilitation unit. Insulin and blood sugar checks were discontinued as dexamethasone dose has come down. Prophylaxis for postoperative patient with spinal cord injury. She is on a dexamethasone taper, and this will be continued. * As her mobility is severely limited, she will also be continued on enoxaparin. * Will initiate GI prophylaxis with pantoprazole, as long as she is on both dexamethasone and enoxaparin. * Incentive spirometry, as she has a weak cough. * She is to wear her cervical collar at all times, except when showering. She has spinal precautions for the neck with no bending, twisting, or lifting greater than 10 pounds. DISPOSITION: Attended staffing, 15 min. Discussed with case management, PT, OT , dietitian. Attended family meeting, multiple family members present. Detailed discussion of care needs that would need to be provided by family. Plan for discharge 01/12/2019 to 01/19/2019. Will need extensive family training if she is to go home.. FOLLOWUP: She is to follow up with Neurosurgeon Dr. Palmer in approximately 6 weeks post surgery, which would be January 04. Discussed with neurosurgery RACHANA West, 12/22/2017. She can follow up after discharge. 12/28/18 13:39 Subjective: Complains of discomfort from the cervical collar. Otherwise overall not in pain. Slept well. Has not noted any more fevers or chills. No cough or dyspnea. Objective: Vital Signs Temp Pulse Resp BP Pulse Ox 37.2 C 87 18 91/58 L 94 12/28/18 05:56 12/28/18 05:56 12/28/18 05:56 12/28/18 05:56 12/28/18 05:56 Laboratory Results 12/26/18 06:00 12/26/18 06:00 12/27/18 12/28/18 12/29/18 05:59 05:59 05:59 Intake Total 550 400 200 Output Total 1999 1050 300 Balance -1450 -650 -100 - Time Spent With Patient Time Spent With Patient: Greater than 35 min floor time today, including more than 50% of time in coordination of care during staffing meeting, and counseling patient and family during family meeting. Physical Exam - Physical Exam General Appearance: WD/WN, alert, no apparent distress Respiratory: No respiratory distress, No accessory muscle use Cardiac/Chest: No edema Skin: normal color, warm/dry Neuro/Psych: alert, normal mood/affect, oriented x 3, motor weakness ICD10 Worksheet Patient Problems: Problems Problem Status Onset Spinal cord injury, cervical region Acute
[2018-12-28] MEDS: BISACODYL 10 MG SUPP PR SCH (15:16)
[2018-12-28] MEDS: ENOXAPARIN 40 MG/0.4 ML SYR SC SCH (15:16)
[2018-12-28] MEDS: CARBOXYMETHYLCELLULOSE 1% 0.4 ML DROPERETTE EACHEYE SCH (21:30)
[2018-12-29] MEDS: ACETAMINOPHEN 500 MG TAB PO SCH ×3 (05:19→20:41)
[2018-12-29] MEDS: SODIUM CHLORIDE 1,000 MG TAB PO SCH ×3 (09:05→20:39)
[2018-12-29] MEDS: DOCUSATE SODIUM 100 MG CAP PO SCH ×2 (09:06→20:39)
[2018-12-29] MEDS: CITALOPRAM 20 MG TAB PO SCH (09:07)
[2018-12-29] MEDS: buPROPion 75 MG TAB PO SCH ×2 (09:07→20:39)
[2018-12-29] MEDS: PANTOPRAZOLE SODIUM 40 MG TAB PO SCH (09:08)
--- NOTE | 2018-12-29 13:26 | SOAPPROG ---
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 Today's update: Making good rehabilitation progress, continue rehabilitation plan. She is responded well to regular bowel program. She noted some discomfort at her occiput just under the cervical collar, examination proved that the skin was intact, no issues. Patient was relieved, continue to monitor this area. Appreciate education from nursing and staff. Patient is improving her knowledge and awareness of spinal cord issues, and better directing her care. Noted that she recently had a slightly low hematocrit trending downward, ordering another recheck tomorrow. Nontraumatic incomplete cervical level spinal cord injury, C3 AIS C: * Cardiovascular: Patient is at risk for autonomic dysreflexia but per reports have not demonstrated signs or symptoms showing that this is orally a problem. The orders for management of autonomic dysreflexia by nursing, p.r.n. Orders for nitropaste and hydralazine as he had adjunctive medications. * Orthostatic hypotension: Reporting that abdominal binder and Zane hose are helpful for blood pressure management when mobilizing. Can consider pharmacologic strategies for blood pressure support such as midodrine if necessary. * Neurogenic bowel: regular bowel program including suppository and digital stimulation. Goal is a daily bowel program to be performed at the beginning or end of day not interfering with therapy with the goal to completely prevent incontinence. 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 * Neurogenic skin: Q 2 hr turns in bed, acute 15 min adjustment while in a wheelchair. Skin checks twice a day, education and Mirror. Correction from prior notes, wound on buttock was related to HSV rather than pressure. Continue monitoring. * Pulmonary: Patient has a weak cough and likely has neuromuscular impairment of the chest wall, encouraging incentive spirometry. Low threshold for respiratory therapy evaluation. We do not have a cough assist available in house, but would discuss further with respiratory therapy if secretion management is an issue. * Contracture prevention: Orthotics for maintenance of range of motion in lower limbs * Additional sequelae of spinal cord injury: She will require follow-up with Physical Medicine Rehabilitation for bladder monitoring and prevention of complications. Elevated temperatures have likely been related to neurogenic cause rather infection or other etiology. Continue to monitor * Discharge planning: Patient will be working with staff to identify a area physical medicine rehabilitation physician to manage spinal cord injury issues after discharge, including monitoring renal function, ongoing Prosthetics orthotics needs, wheelchair needs. * Mobility planning: Overall prognosis is guarded, pr wheelchair to be delivered today. * Spinal cord injury education: Printed off information in Ugandan and Filipino to be covered with the patient by staff. Patient noted that she prefers information in [place]an, spoken. Unclear what her baseline literacy level is, we will recruit family members to help with this process as well. Her symptom history is also unclear at times, may require additional re-education * DVT prophylaxis: This should continue for 12 weeks after injury with low molecular weight heparin * Follow up with Neurosurgery for additional monitoring and treatment of tumor diagnosis. Additional issues reviewed without change include hyponatremia, adjustment disorder with depressed mood, skin ulceration, elevated blood sugars. A total of 25 min was spent on the floor in the care of the patient, the majority of which was spent counseling and coordination of care regarding spinal cord specific issues with the patient as well as staff. 12/15/18 13:03 12/27/18 09:49 12/27/18 12:59 12/29/18 13:20 Subjective: Chief complaint: Pain in the posterior neck skin No acute events overnight. Patient denies any new shortness of breath or chest pain, no new numbness, tingling, or weakness. She endorses that she has some intermittent pain that feels superficial under the cervical collar in the posterior aspect of her neck and just inferior to the occiput. She has never had pressure ulcers there in the past, has a cervical collar in place most of the time. Otherwise, she feels like rehabilitation is going well, does not have particular issues. Staff reports that she is better directing her care. Objective: Vital Signs Temp Pulse Resp BP Pulse Ox 37.8 C 95 16 87/60 L 93 12/29/18 05:29 12/29/18 05:29 12/29/18 05:29 12/29/18 05:29 12/29/18 05:29 Laboratory Results 12/26/18 06:00 12/26/18 06:00 12/28/18 12/29/18 12/30/18 05:59 05:59 05:59 Intake Total 400 900 200 Output Total 1050 1500 600 Balance -650 -600 -400 Physical Exam - Physical Exam General Appearance: WD/WN, alert, no apparent distress EENT: other (Posterior head and neck shows a incision that is healing well underneath the cervical collar. She has no evidence of pressure injury to the area in question. No other skin breakdown in the occiput), No scleral icterus ( R), No scleral icterus (L) Neck: other (Cervical collar in place, healing wound is noted above) Respiratory: No respiratory distress, No accessory muscle use Cardiac/Chest: normal peripheral pulses, regular rate, rhythm, No edema Abdomen: No distended Skin: normal color, warm/dry, No cyanosis, No diaphoresis Extremities: No pedal edema, No swelling Neuro/Psych: alert, normal mood/affect, other (Absent finger abduction, trace finger flexion.) ICD10 Worksheet Patient Problems: Problems Problem Status Onset Spinal cord injury, cervical region Acute
[2018-12-29] MEDS: ENOXAPARIN 40 MG/0.4 ML SYR SC SCH (16:57)
[2018-12-29] MEDS: BISACODYL 10 MG SUPP PR SCH (20:39)
[2018-12-29] MEDS: CARBOXYMETHYLCELLULOSE 1% 0.4 ML DROPERETTE EACHEYE SCH (20:39)
[2018-12-30] MEDS: ACETAMINOPHEN 500 MG TAB PO SCH ×3 (05:45→22:24)
[2018-12-30] MEDS: SODIUM CHLORIDE 1,000 MG TAB PO SCH ×3 (08:47→17:30)
[2018-12-30] MEDS: CITALOPRAM 20 MG TAB PO SCH (08:47)
[2018-12-30] MEDS: DOCUSATE SODIUM 100 MG CAP PO SCH ×2 (08:47→22:25)
[2018-12-30] MEDS: buPROPion 75 MG TAB PO SCH ×2 (08:47→22:25)
[2018-12-30] MEDS: PANTOPRAZOLE SODIUM 40 MG TAB PO SCH (08:48)
[2018-12-30 09:15] LABS: PLATELET COUNT 281 10^3/uL (150-400)
--- NOTE | 2018-12-30 11:54 | SOAPPROG ---
SOAP Progress Note Assessment/Plan: Assessment: Spinal cord dysfunction, C3 level, MONIE class 3, status post C3-T1 laminectomy and fusion on 11/24/2018 for resection of an ependymoma. * Initial functional independence measure is 54 on 12/16/2018; no change as of 12/23; improved to 56 as of 12/28/2018. Has increased control of trunk and arms but not yet reflected in any gains in function. She requires Farhan lift for transfer. She did a sliding board transfer with maximal assist of 2. She has trace movement in the lower extremities more so on the left than the right. She has full active range of motion with the upper extremities. She accomplished upper body dressing with moderate to maximal assist. Lower body dressing required total assist. She is incontinent of stool and insensate regarding urge to defecate. * Continue PT and OT to optimize mobility and activities of daily living. Hyponatremia, with sodium 133 on 12/16/2018. 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 * Improved to 137 on 12/17/2018 but down to 130 on 12/20/2018. * Normal BMP on 12/23/2018. Na 134 on 12/26/2018. Stable at 134 on 12/30/2018. * Continue 1000 cc per day fluid restriction, started 12/21/2018. Continue sodium chloride tablets 1000 mg three times daily with meals. Fevers, likely neurogenic. * Labs and CT scan negative for pneumonia, pulmonary embolus, UTI. Normal white blood cell count, normal ESR and CRP. * Await blood culture results; preliminary cultures are negative.. If positive will assess further regarding possible osteomyelitis. * Repeating labs 12/30/2018 due to symptoms overnight. White blood cell count, ESR and CRP are not suggestive of infection. * Continue incentive spirometry. Continue to monitor for any symptoms of infection. Neurogenic bowel * Getting daily bisacodyl suppository and docusate is prescribed. Having daily bowel movements. Neurogenic bladder * Not requiring catheterization and has low postvoid residuals. Discontinue bladder scans. Continued scheduled toileting. Adjustment disorder with depressed mood. * Initiate citalopram 10 mg q.day starting 12/24/2018. Continue bupropion. * electronics department manager is available for counseling. Risk for autonomic dysreflexia. She appears to have intact sensation, but she may not have appropriate parasympathetic control. * Blood pressures and symptoms of distress will be monitored, and she will be treated with the autonomic dysreflexia protocol. * Will use nitroglycerin paste on a p.r.n. basis if non-pharmacologic measures are unsuccessful. * Has had no symptoms. Skin ulcer, right buttock, possibly from shear. Resolved. 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 * Valacyclovir started 12/17/2018. Continued 3 days total. Pulmonary.. * Has been assessed by Respiratory therapy. Achieving near normal pressures with incentive spirometry. Continue incentive spirometry. Contracture prevention. * No spasticity at present but will initiate spasticity of management with medications of a develops. * Podus boots while in bed to prevent ankle contractures. Low blood pressure. JB hose, abdominal binder, as needed for orthostatic symptoms. Elevated blood sugars in the hospital, likely due to dexamethasone with possible risk for diabetes mellitus, given her age and body habitus. * Occasional use of insulin initially on the rehabilitation unit. Insulin and blood sugar checks were discontinued as dexamethasone dose has come down. Prophylaxis for postoperative patient with spinal cord injury. She is on a dexamethasone taper, and this will be continued. * As her mobility is severely limited, she will also be continued on enoxaparin. * Will initiate GI prophylaxis with pantoprazole, as long as she is on both dexamethasone and enoxaparin. * Incentive spirometry, as she has a weak cough. * She is to wear her cervical collar at all times, except when showering. She has spinal precautions for the neck with no bending, twisting, or lifting greater than 10 pounds. DISPOSITION: Plan for discharge to sister's home 01/12/2019 to 01/19/2019. Will need extensive family training if she is to go home.. FOLLOWUP: She is to follow up with Neurosurgeon Dr. Palmer in approximately 6 weeks post surgery, which would be January 04. Discussed with neurosurgery RACHANA West, 12/22/2017. She can follow up after discharge. Justification for durable medical equipment. 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 Power wheelchair: * This patient has a mobility limitation that significantly impairs 1 or more mobility related ADLs in the home. * Her functional mobility deficit cannot be resolved with a walker or cane. * Her home is adequate for accessing rooms and maneuvering space and surfaces. * The wheelchair will significantly improve her ability to participate in mobility related ADLs and the patient will use it regularly. * Patient has not expressed and unwillingness to use the wheelchair. * Patient has sufficient physical and mental ability to safely use the wheelchair. Wheelchair accessories: * She needs a manual reclining back on the wheelchair. She is at high risk for development of a pressure ulcer and is unable to perform functional weight shift. * She needs safety belt/pelvic strap. She has weak upper body muscles and upper body instability which requires use for proper positioning. * She needs swing away/retractable arm rests. She most move the component of the way to perform a slide transfer to chair bed Hospital bed: * She needs a semi-electric hospital bed. She requires frequent changes in body position due to the risk of skin breakdown. Farhan lift: * She needs a Farhan lift with commode and standard U shaped sling. * She requires the lift to allow her to discharge to her home with 1 person assist. * She lacks the ability to transfer to her power chair or commode by herself. * Her family is willing and able to assist the patient with the lift. 12/30/18 11:49 Subjective: Asked why she feels chilled at night and then later feels to warm. Otherwise without complaints. No cough or dyspnea, no dysuria. Not in pain. Sleeping well. Objective: Vital Signs Temp Pulse Resp BP Pulse Ox 37.2 C 104 H 15 98/69 L 94 12/30/18 10:49 12/30/18 07:49 12/30/18 07:49 12/30/18 07:49 12/30/18 07:49 Laboratory Results 12/30/18 06:30 12/30/18 06:30 12/29/18 12/30/18 12/31/18 05:59 05:59 05:59 Intake Total 900 990 Output Total 1500 1300 200 Balance -600 -310 -200 Physical Exam - Physical Exam General Appearance: WD/WN, alert, no apparent distress Respiratory: normal breath sounds, No crackles, No rhonchi, No wheezing Cardiac/Chest: regular rate, rhythm, edema (Trace to 1+ bilateral lower extremities pretibial), No diastolic murmur, No systolic murmur Skin: normal color, warm/dry Neuro/Psych: alert, normal mood/affect, oriented x 3, motor weakness ICD10 Worksheet Patient Problems: Problems Problem Status Onset Spinal cord injury, cervical region Acute
[2018-12-30] MEDS: ENOXAPARIN 40 MG/0.4 ML SYR SC SCH (15:53)
[2018-12-30] MEDS: BISACODYL 10 MG SUPP PR SCH (15:53)
[2018-12-30] MEDS: CARBOXYMETHYLCELLULOSE 1% 0.4 ML DROPERETTE EACHEYE SCH (22:25)
[2018-12-31] MEDS: ACETAMINOPHEN 500 MG TAB PO SCH ×3 (06:29→21:36)
[2018-12-31] MEDS: SODIUM CHLORIDE 1,000 MG TAB PO SCH ×3 (08:54→17:29)
[2018-12-31] MEDS: CITALOPRAM 20 MG TAB PO SCH (08:55)
[2018-12-31] MEDS: buPROPion 75 MG TAB PO SCH ×2 (08:55→21:36)
[2018-12-31] MEDS: DOCUSATE SODIUM 100 MG CAP PO SCH ×2 (08:56→21:36)
[2018-12-31] MEDS: PANTOPRAZOLE SODIUM 40 MG TAB PO SCH (08:56)
--- NOTE | 2018-12-31 10:33 | SOAPPROG ---
SOAP Progress Note Assessment/Plan: Spinal cord dysfunction, C3 level, MONIE class 3, status post C3-T1 laminectomy and fusion on 11/24/2018 for resection of an ependymoma. * Initial functional independence measure is 54 on 12/16/2018; no change as of 12/23; improved to 56 as of 12/28/2018. Has increased control of trunk and arms but not yet reflected in any gains in function. She requires Farhan lift for transfer. She did a sliding board transfer with maximal assist of 2. She has trace movement in the lower extremities more so on the left than the right. She has full active range of motion with the upper extremities. She accomplished upper body dressing with moderate to maximal assist. Lower body dressing required total assist. She is incontinent of stool and insensate regarding urge to defecate. * Continue PT and OT to optimize mobility and activities of daily living. Hyponatremia, with sodium 133 on 12/16/2018. 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 * Improved to 137 on 12/17/2018 but down to 130 on 12/20/2018. * Normal BMP on 12/23/2018. Na 134 on 12/26/2018. Stable at 134 on 12/30/2018. WILL CHECK SERUM SODIUM ON 01/02 * Continue 1000 cc per day fluid restriction, started 12/21/2018. Continue sodium chloride tablets 1000 mg three times daily with meals. Fevers, likely neurogenic. WILL CHECK ALKALINE PHOSPHATASE WITH NEXT LAB DRAW TO LOOK FOR INCREASE LEVELS WHICH MAY BE DUE TO HETEROTOPIC OSSIFICATION WHICH MAY ALSO RESULT IN LOW-GRADE FEVER * Labs and CT scan negative for pneumonia, pulmonary embolus, UTI. Normal white blood cell count, normal ESR and CRP. * Await blood culture results; preliminary cultures are negative.. If positive will assess further regarding possible osteomyelitis. * Repeating labs 12/30/2018 due to symptoms overnight. White blood cell count, ESR and CRP are not suggestive of infection. * Continue incentive spirometry. Continue to monitor for any symptoms of infection. Neurogenic bowel * Getting daily bisacodyl suppository and docusate is prescribed. Having daily bowel movements. Neurogenic bladder * Not requiring catheterization and has low postvoid residuals. Discontinue bladder scans. Continued scheduled toileting. Adjustment disorder with depressed mood. * Initiate citalopram 10 mg q.day starting 12/24/2018. Continue bupropion. * operations manager assistant is available for counseling. Risk for autonomic dysreflexia. She appears to have intact sensation, but she may not have appropriate parasympathetic control. * Blood pressures and symptoms of distress will be monitored, and she will be treated with the autonomic dysreflexia protocol. * Will use nitroglycerin paste on a p.r.n. basis if non-pharmacologic measures are unsuccessful. * Has had no symptoms. Skin ulcer, right buttock, possibly from shear. Resolved. 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 * Valacyclovir started 12/17/2018. Continued 3 days total. Pulmonary.. * Has been assessed by Respiratory therapy. Achieving near normal pressures with incentive spirometry. Continue incentive spirometry. Contracture prevention. * No spasticity at present but will initiate spasticity of management with medications of a develops. HAS GREATER THAN 10 BEATS RIGHT ANKLE CLONUS. WILL ASK PHYSICAL THERAPY IF THIS IS INTERFERING WITH TRANSFERS. * Podus boots while in bed to prevent ankle contractures. Low blood pressure. JB hose, abdominal binder, as needed for orthostatic symptoms. Elevated blood sugars in the hospital, likely due to dexamethasone with possible risk for diabetes mellitus, given her age and body habitus. * Occasional use of insulin initially on the rehabilitation unit. Insulin and blood sugar checks were discontinued as dexamethasone dose has come down. Prophylaxis for postoperative patient with spinal cord injury. She is on a dexamethasone taper, and this will be continued. * As her mobility is severely limited, she will also be continued on enoxaparin. * Will initiate GI prophylaxis with pantoprazole, as long as she is on both dexamethasone and enoxaparin. * Incentive spirometry, as she has a weak cough. * She is to wear her cervical collar at all times, except when showering. She has spinal precautions for the neck with no bending, twisting, or lifting greater than 10 pounds. DISPOSITION: Plan for discharge to sister's home 01/12/2019 to 01/19/2019. Will need extensive family training if she is to go home.. FOLLOWUP: She is to follow up with Neurosurgeon Dr. Palmer in approximately 6 weeks post surgery, which would be January 04. Discussed with neurosurgery RACHANA West, 12/22/2017. She can follow up after discharge. Justification for durable medical equipment. 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 Power wheelchair: * This patient has a mobility limitation that significantly impairs 1 or more mobility related ADLs in the home. * Her functional mobility deficit cannot be resolved with a walker or cane. * Her home is adequate for accessing rooms and maneuvering space and surfaces. * The wheelchair will significantly improve her ability to participate in mobility related ADLs and the patient will use it regularly. * Patient has not expressed and unwillingness to use the wheelchair. * Patient has sufficient physical and mental ability to safely use the wheelchair. Wheelchair accessories: * She needs a manual reclining back on the wheelchair. She is at high risk for development of a pressure ulcer and is unable to perform functional weight shift. * She needs safety belt/pelvic strap. She has weak upper body muscles and upper body instability which requires use for proper positioning. * She needs swing away/retractable arm rests. She most move the component of the way to perform a slide transfer to chair bed Hospital bed: * She needs a semi-electric hospital bed. She requires frequent changes in body position due to the risk of skin breakdown. Farhan lift: * She needs a [place] lift with commode and standard U shaped sling. * She requires the lift to allow her to discharge to her home with 1 person assist. * She lacks the ability to transfer to her power chair or commode by herself. * Her family is willing and able to assist the patient with the lift. 12/31/18 10:35 Objective: Vital Signs Temp Pulse Resp BP Pulse Ox 37.9 C 99 14 107/78 99 12/31/18 06:38 12/31/18 06:38 12/31/18 06:38 12/31/18 06:38 12/31/18 06:38 Microbiology 12/25/18 23:30 Blood Culture - Final Blood 12/25/18 22:55 Blood Culture - Final Blood Laboratory Results 12/30/18 06:30 12/30/18 06:30 12/30/18 12/31/18 01/01/19 05:59 05:59 05:59 Intake Total 990 940 Output Total 1300 950 Balance -310 -10 ICD10 Worksheet Patient Problems: Problems Problem Status Onset Spinal cord injury, cervical region Acute
[2018-12-31] MEDS: ENOXAPARIN 40 MG/0.4 ML SYR SC SCH (16:50)
[2018-12-31] MEDS: BISACODYL 10 MG SUPP PR SCH (16:51)
[2018-12-31] MEDS: CARBOXYMETHYLCELLULOSE 1% 0.4 ML DROPERETTE EACHEYE SCH (21:37)
[2019-01-01] MEDS: ACETAMINOPHEN 500 MG TAB PO SCH ×3 (06:19→20:30)
[2019-01-01] MEDS: CITALOPRAM 20 MG TAB PO SCH (08:47)
[2019-01-01] MEDS: SODIUM CHLORIDE 1,000 MG TAB PO SCH ×3 (08:47→18:02)
[2019-01-01] MEDS: buPROPion 75 MG TAB PO SCH ×2 (08:47→20:30)
[2019-01-01] MEDS: DOCUSATE SODIUM 100 MG CAP PO SCH ×2 (08:49→20:30)
[2019-01-01] MEDS: PANTOPRAZOLE SODIUM 40 MG TAB PO SCH (08:49)
--- NOTE | 2019-01-01 10:03 | SOAPPROG ---
SOAP Progress Note Assessment/Plan: Spinal cord dysfunction, C3 level, MONIE class 3, status post C3-T1 laminectomy and fusion on 11/24/2018 for resection of an ependymoma. * Initial functional independence measure is 54 on 12/16/2018; no change as of 12/23; improved to 56 as of 12/28/2018. Has increased control of trunk and arms but not yet reflected in any gains in function. She requires Farhan lift for transfer. She did a sliding board transfer with maximal assist of 2. She has trace movement in the lower extremities more so on the left than the right. She has full active range of motion with the upper extremities. She accomplished upper body dressing with moderate to maximal assist. Lower body dressing required total assist. She is incontinent of stool and insensate regarding urge to defecate. No significant improvement in lower extremity strength as of 01/01 exam * Continue PT and OT to optimize mobility and activities of daily living. Hyponatremia. SODIUM LEVEL FROM 12/30 134. HAVE ORDERED SODIUM LEVEL TO BE DRAWN MORNING OF 01/02 AND IF THIS IS NORMAL WILL EITHER INCREASE FLUIDS OR DISCHARGE FLUID RESTRICTIONS ALTOGETHER. 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 * Improved to 137 on 12/17/2018 but down to 130 on 12/20/2018. * Normal BMP on 12/23/2018. Na 134 on 12/26/2018. Stable at 134 on 12/30/2018. WILL CHECK SERUM SODIUM ON 01/02 * Continue 1000 cc per day fluid restriction, started 12/21/2018. Continue sodium chloride tablets 1000 mg three times daily with meals. Fevers, likely neurogenic. WILL CHECK ALKALINE PHOSPHATASE MORNING OF 01/02 TO LOOK FOR INCREASE LEVELS WHICH MAY BE DUE TO HETEROTOPIC OSSIFICATION WHICH MAY ALSO RESULT IN LOW-GRADE FEVER. ALK-PHOS LEVEL FROM 12/26 NOTED TO BE 36. * Labs and CT scan negative for pneumonia, pulmonary embolus, UTI. C REACTIVE PROTEIN FROM 12/30 LESS THAN 5, WHITE BLOOD COUNT FROM 12/30 4.36. ESR FROM 9. * Await blood culture results. BLOOD CULTURE NEGATIVE AFTER 36 HR. WILL CONTINUE TO FOLLOW. * Repeating labs 12/30/2018 due to symptoms overnight. White blood cell count, ESR and CRP are not suggestive of infection. * Continue incentive spirometry. Continue to monitor for any symptoms of infection. Neurogenic bowel * Getting daily bisacodyl suppository and docusate is prescribed. Having daily bowel movements. Neurogenic bladder * Not requiring catheterization and has low postvoid residuals. Discontinue bladder scans. Continued scheduled toileting. Adjustment disorder with depressed mood. * Initiate citalopram 10 mg q.day starting 12/24/2018. Continue bupropion. * horse show manager is available for counseling. Risk for autonomic dysreflexia. She appears to have intact sensation, but she may not have appropriate parasympathetic control. * Blood pressures and symptoms of distress will be monitored, and she will be treated with the autonomic dysreflexia protocol. * Will use nitroglycerin paste on a p.r.n. basis if non-pharmacologic measures are unsuccessful. * Has had no symptoms. Skin ulcer, right buttock, possibly from shear. Resolved. 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 * Valacyclovir started 12/17/2018. Continued 3 days total. Pulmonary.. * Has been assessed by Respiratory therapy. Achieving near normal pressures with incentive spirometry. Continue incentive spirometry. Contracture prevention. * No spasticity at present but will initiate spasticity of management with medications of a develops. HAS GREATER THAN 10 BEATS RIGHT ANKLE CLONUS. WILL ASK PHYSICAL THERAPY IF THIS IS INTERFERING WITH TRANSFERS. * Podus boots while in bed to prevent ankle contractures. Low blood pressure. JB hose, abdominal binder, as needed for orthostatic symptoms. IF SERUM SODIUM IS NORMAL ON 01/02 BLOOD DRAW THEN WILL INCREASE FLUIDS WHICH HOPEFULLY WILL HELP RAISE BLOOD PRESSURE TO NORMAL LEVELS. Elevated blood sugars in the hospital, likely due to dexamethasone with possible risk for diabetes mellitus, given her age and body habitus. * Occasional use of insulin initially on the rehabilitation unit. Insulin and blood sugar checks were discontinued as dexamethasone dose has come down. Prophylaxis for postoperative patient with spinal cord injury. She is on a dexamethasone taper, and this will be continued. * As her mobility is severely limited, she will also be continued on enoxaparin. * Will initiate GI prophylaxis with pantoprazole, as long as she is on both dexamethasone and enoxaparin. * Incentive spirometry, as she has a weak cough. * She is to wear her cervical collar at all times, except when showering. She has spinal precautions for the neck with no bending, twisting, or lifting greater than 10 pounds. DISPOSITION: Plan for discharge to sister's home 01/12/2019 to 01/19/2019. Will need extensive family training if she is to go home.. FOLLOWUP: She is to follow up with Neurosurgeon Dr. Palmer in approximately 6 weeks post surgery, which would be January 04. Discussed with neurosurgery RACHANA West, 12/22/2017. She can follow up after discharge. Justification for durable medical equipment. 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 Power wheelchair: * This patient has a mobility limitation that significantly impairs 1 or more mobility related ADLs in the home. * Her functional mobility deficit cannot be resolved with a walker or cane. * Her home is adequate for accessing rooms and maneuvering space and surfaces. * The wheelchair will significantly improve her ability to participate in mobility related ADLs and the patient will use it regularly. * Patient has not expressed and unwillingness to use the wheelchair. * Patient has sufficient physical and mental ability to safely use the wheelchair. Wheelchair accessories: * She needs a manual reclining back on the wheelchair. She is at high risk for development of a pressure ulcer and is unable to perform functional weight shift. * She needs safety belt/pelvic strap. She has weak upper body muscles and upper body instability which requires use for proper positioning. * She needs swing away/retractable arm rests. She most move the component of the way to perform a slide transfer to chair bed Hospital bed: * She needs a semi-electric hospital bed. She requires frequent changes in body position due to the risk of skin breakdown. Farhan lift: * She needs a Farhan lift with commode and standard U shaped sling. * She requires the lift to allow her to discharge to her home with 1 person assist. * She lacks the ability to transfer to her power chair or commode by herself. * Her family is willing and able to assist the patient with the lift. 01/01/19 10:09 Subjective: NO COMPLAINTS PER PATIENT. SHE DENIES FEELING LIGHTHEADED OR DIZZY. DENIES HEADACHE. Objective: Vital Signs Temp Pulse Resp BP Pulse Ox 37.2 C 105 H 15 98/68 L 93 01/01/19 06:32 01/01/19 06:32 01/01/19 06:32 01/01/19 06:26 01/01/19 06:32 Microbiology 12/25/18 23:30 Blood Culture - Final Blood 12/25/18 22:55 Blood Culture - Final Blood Laboratory Results 12/30/18 06:30 12/30/18 06:30 12/31/18 01/01/19 01/02/19 05:59 05:59 05:59 Intake Total 940 850 50 Output Total 950 1650 200 Balance -10 -800 -150 Physical Exam - Physical Exam General Appearance: WD/WN, alert, no apparent distress, other (TLSO in place) Respiratory: lungs clear, normal breath sounds Abdomen: normal bowel sounds, non-tender, soft, other (No suprapubic tenderness) Skin: warm/dry Extremities: No swelling, No Riri's sign Neuro/Psych: alert, normal mood/affect, motor weakness (C3 incomplete quadriplegia) ICD10 Worksheet Patient Problems: Problems Problem Status Onset Spinal cord injury, cervical region Acute
[2019-01-01] MEDS: ENOXAPARIN 40 MG/0.4 ML SYR SC SCH (18:02)
[2019-01-01] MEDS: BISACODYL 10 MG SUPP PR SCH (18:06)
[2019-01-01] MEDS: CARBOXYMETHYLCELLULOSE 1% 0.4 ML DROPERETTE EACHEYE SCH (23:37)
[2019-01-02] MEDS: ACETAMINOPHEN 500 MG TAB PO SCH ×4 (04:57→21:24)
--- NOTE | 2019-01-02 08:56 | SOAPPROG ---
SOAP Progress Note Assessment/Plan: Spinal cord dysfunction, C3 level, MONIE class 3, status post C3-T1 laminectomy and fusion on 11/24/2018 for resection of an ependymoma. * Initial functional independence measure is 54 on 12/16/2018; no change as of 12/23; improved to 56 as of 12/28/2018. Has increased control of trunk and arms but not yet reflected in any gains in function. She requires Farhan lift for transfer. She did a sliding board transfer with maximal assist of 2. She has trace movement in the lower extremities more so on the left than the right. She has full active range of motion with the upper extremities. She accomplished upper body dressing with moderate to maximal assist. Lower body dressing required total assist. She is incontinent of stool and insensate regarding urge to defecate. No significant improvement in lower extremity strength as of 01/01 exam * Continue PT and OT to optimize mobility and activities of daily living. Hyponatremia. Sodium level from 01/01 was 135. Sodium level this morning pending. Will increase fluids to 1500 cc daily. 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 * Improved to 137 on 12/17/2018 but down to 130 on 12/20/2018. * Normal BMP on 12/23/2018. Na 134 on 12/26/2018. Stable at 134 on 12/30/2018. * Continue sodium chloride tablets 1000 mg three times daily with meals. Fevers, likely neurogenic. Temperature this morning, 01/02, 101.1. Will repeat UA, C and S if indicated. Chest x-ray. Possible pneumonia, specially with current fluid restrictions where pneumonia may not show changes on x-rays until she increases hydration. WILL CHECK ALKALINE PHOSPHATASE MORNING OF 01/02 TO LOOK FOR INCREASE LEVELS WHICH MAY BE DUE TO HETEROTOPIC OSSIFICATION WHICH MAY ALSO RESULT IN LOW-GRADE FEVER. ALK-PHOS LEVEL FROM 12/26 NOTED TO BE 36. * Labs and CT scan negative for pneumonia, pulmonary embolus, UTI. C REACTIVE PROTEIN FROM 12/30 LESS THAN 5, WHITE BLOOD COUNT FROM 12/30 4.36. ESR FROM 9. * Await blood culture results. BLOOD CULTURE NEGATIVE AFTER 36 HR. WILL CONTINUE TO FOLLOW. * Repeating labs 12/30/2018 due to symptoms overnight. White blood cell count, ESR and CRP are not suggestive of infection. * Continue incentive spirometry. Continue to monitor for any symptoms of infection. Neurogenic bowel * Getting daily bisacodyl suppository and docusate is prescribed. Having daily bowel movements. Neurogenic bladder * Not requiring catheterization and has low postvoid residuals. Discontinue bladder scans. Continued scheduled toileting. Adjustment disorder with depressed mood. * Initiate citalopram 10 mg q.day starting 12/24/2018. Continue bupropion. * keno manager is available for counseling. Risk for autonomic dysreflexia. She appears to have intact sensation, but she may not have appropriate parasympathetic control. * Blood pressures and symptoms of distress will be monitored, and she will be treated with the autonomic dysreflexia protocol. * Will use nitroglycerin paste on a p.r.n. basis if non-pharmacologic measures are unsuccessful. * Has had no symptoms. Skin ulcer, right buttock, possibly from shear. Resolved. 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 * Valacyclovir started 12/17/2018. Continued 3 days total. Pulmonary.. * Has been assessed by Respiratory therapy. Achieving near normal pressures with incentive spirometry. Continue incentive spirometry. Contracture prevention. * No spasticity at present but will initiate spasticity of management with medications of a develops. HAS GREATER THAN 10 BEATS RIGHT ANKLE CLONUS. WILL ASK PHYSICAL THERAPY IF THIS IS INTERFERING WITH TRANSFERS. * Podus boots while in bed to prevent ankle contractures. Low blood pressure. JB hose, abdominal binder, as needed for orthostatic symptoms. IF SERUM SODIUM IS NORMAL ON 01/02 BLOOD DRAW THEN WILL INCREASE FLUIDS WHICH HOPEFULLY WILL HELP RAISE BLOOD PRESSURE TO NORMAL LEVELS. Elevated blood sugars in the hospital, likely due to dexamethasone with possible risk for diabetes mellitus, given her age and body habitus. * Occasional use of insulin initially on the rehabilitation unit. Insulin and blood sugar checks were discontinued as dexamethasone dose has come down. Prophylaxis for postoperative patient with spinal cord injury. She is on a dexamethasone taper, and this will be continued. * As her mobility is severely limited, she will also be continued on enoxaparin. * Will initiate GI prophylaxis with pantoprazole, as long as she is on both dexamethasone and enoxaparin. * Incentive spirometry, as she has a weak cough. * She is to wear her cervical collar at all times, except when showering. She has spinal precautions for the neck with no bending, twisting, or lifting greater than 10 pounds. DISPOSITION: Plan for discharge to sister's home 01/12/2019 to 01/19/2019. Will need extensive family training if she is to go home.. FOLLOWUP: She is to follow up with Neurosurgeon Dr. Palmer in approximately 6 weeks post surgery, which would be January 04. Discussed with neurosurgery RACHANA West, 12/22/2017. She can follow up after discharge. Justification for durable medical equipment. 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 Power wheelchair: * This patient has a mobility limitation that significantly impairs 1 or more mobility related ADLs in the home. * Her functional mobility deficit cannot be resolved with a walker or cane. * Her home is adequate for accessing rooms and maneuvering space and surfaces. * The wheelchair will significantly improve her ability to participate in mobility related ADLs and the patient will use it regularly. * Patient has not expressed and unwillingness to use the wheelchair. * Patient has sufficient physical and mental ability to safely use the wheelchair. Wheelchair accessories: * She needs a manual reclining back on the wheelchair. She is at high risk for development of a pressure ulcer and is unable to perform functional weight shift. * She needs safety belt/pelvic strap. She has weak upper body muscles and upper body instability which requires use for proper positioning. * She needs swing away/retractable arm rests. She most move the component of the way to perform a slide transfer to chair bed Hospital bed: * She needs a semi-electric hospital bed. She requires frequent changes in body position due to the risk of skin breakdown. Farhan lift: * She needs a Farhan lift with commode and standard U shaped sling. * She requires the lift to allow her to discharge to her home with 1 person assist. * She lacks the ability to transfer to her power chair or commode by herself. * Her family is willing and able to assist the patient with the lift. 01/02/19 08:52 Subjective: Nursing reports patient has temperature of a 101.1. Patient denies headache, abdominal pain, suprapubic pain. Objective: Vital Signs Temp Pulse Resp BP Pulse Ox 38.4 C H 100 18 94/70 L 92 01/02/19 04:23 01/01/19 20:00 01/01/19 20:00 01/01/19 20:00 01/01/19 20:00 Laboratory Results 12/30/18 06:30 01/01/19 14:05 01/01/19 01/02/19 01/03/19 05:59 05:59 05:59 Intake Total 850 960 Output Total 1650 1000 300 Balance -800 -40 -300 Physical Exam - Physical Exam General Appearance: WD/WN, alert, mild distress Respiratory: normal breath sounds, crackles (Crackles at bases more pronounced on the left.), other (No E to a changes) Cardiac/Chest: No edema Abdomen: normal bowel sounds, non-tender, soft, other (Slightly protuberant. No suprapubic tenderness.), No guarding, No rebound Skin: warm/dry, No decubitus Extremities: other (No swelling or erythema right or left inguinal region), No swelling, No Riri's sign ICD10 Worksheet Patient Problems: Problems Problem Status Onset Spinal cord injury, cervical region Acute
[2019-01-02] MEDS: SODIUM CHLORIDE 1,000 MG TAB PO SCH ×3 (10:10→17:59)
[2019-01-02] MEDS: CITALOPRAM 20 MG TAB PO SCH (10:10)
[2019-01-02] MEDS: PANTOPRAZOLE SODIUM 40 MG TAB PO SCH (10:10)
[2019-01-02] MEDS: DOCUSATE SODIUM 100 MG CAP PO SCH ×2 (10:10→21:24)
[2019-01-02] MEDS: buPROPion 75 MG TAB PO SCH ×2 (10:11→21:24)
[2019-01-02 11:40] LABS: PLATELET COUNT 266 10^3/uL (150-400)
[2019-01-02] MEDS: BISACODYL 10 MG SUPP PR SCH (16:04)
[2019-01-02] MEDS: ENOXAPARIN 40 MG/0.4 ML SYR SC SCH (16:04)
[2019-01-02] MEDS: CARBOXYMETHYLCELLULOSE 1% 0.4 ML DROPERETTE EACHEYE SCH (21:24)
[2019-01-02] MEDS: SULFAMETHOX/TMP 800/160 MG 1 TAB PO SCH (23:17)
[2019-01-03] MEDS: ACETAMINOPHEN 500 MG TAB PO SCH ×3 (06:11→20:36)
[2019-01-03] MEDS: SULFAMETHOX/TMP 800/160 MG 1 TAB PO SCH ×2 (08:07→20:36)
[2019-01-03] MEDS: PANTOPRAZOLE SODIUM 40 MG TAB PO SCH (08:07)
[2019-01-03] MEDS: CITALOPRAM 20 MG TAB PO SCH (08:07)
[2019-01-03] MEDS: DOCUSATE SODIUM 100 MG CAP PO SCH ×2 (08:07→20:36)
[2019-01-03] MEDS: buPROPion 75 MG TAB PO SCH ×2 (08:07→20:36)
[2019-01-03] MEDS: SODIUM CHLORIDE 1,000 MG TAB PO SCH ×3 (08:07→17:40)
--- NOTE | 2019-01-03 10:34 | SOAPPROG ---
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 Today's update: Continuing to make good progress in rehabilitation. She has endorsed chills during episodes of fever, more suggestive of a infectious etiology than environmental effects with spinal cord injury. Continue empiric treatment of urinary tract infection, follow culture and sensitivities. Monitor clinically. Plan to adjust based on outcome. In addition, sodium has been stable with salt tablets and fluid restriction, liberalized fluid restriction, will recheck sodium. Continuing spinal cord education, bowel program, monitoring for autonomic dysreflexia which has not manifested at this point. Alk-phos is normal. Nontraumatic incomplete cervical level spinal cord injury, C3 AIS C: * Cardiovascular: Patient is at risk for autonomic dysreflexia but per reports have not demonstrated signs or symptoms showing that this is orally a problem. The orders for management of autonomic dysreflexia by nursing, p.r.n. Orders for nitropaste and hydralazine as he had adjunctive medications. * Orthostatic hypotension: Likely due to spinal cord injury and loss of vascular tone. Reporting that abdominal binder and Zane hose are helpful for blood pressure management when mobilizing. Can consider pharmacologic strategies for blood pressure support such as midodrine if necessary. * Neurogenic bowel: regular bowel program including suppository and digital stimulation. Goal is a daily bowel program to be performed at the beginning or end of day not interfering with therapy with the goal to completely prevent incontinence. 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 * Neurogenic skin: Q 2 hr turns in bed, acute 15 min adjustment while in a wheelchair. Skin checks twice a day, education and Mirror. Correction from prior notes, wound on buttock was related to HSV rather than pressure. Continue monitoring. * Pulmonary: Patient has a weak cough and likely has neuromuscular impairment of the chest wall, encouraging incentive spirometry. Low threshold for respiratory therapy evaluation. We do not have a cough assist available in house, but would discuss further with respiratory therapy if secretion management is an issue. * Contracture prevention: Orthotics for maintenance of range of motion in lower limbs * Additional sequelae of spinal cord injury: She will require follow-up with Physical Medicine Rehabilitation for bladder monitoring and prevention of complications. Elevated temperatures have likely been related to neurogenic cause rather infection or other etiology. Continue to monitor * Discharge planning: Patient will be working with staff to identify a area physical medicine rehabilitation physician to manage spinal cord injury issues after discharge, including monitoring renal function, ongoing Prosthetics orthotics needs, wheelchair needs. * Mobility planning: Overall prognosis is guarded, pr wheelchair to be delivered today. * Spinal cord injury education: Printed off information in Fijian and Swedish to be covered with the patient by staff. Patient noted that she prefers information in Fijian, spoken. Unclear what her baseline literacy level is, we will recruit family members to help with this process as well. Her symptom history is also unclear at times, may require additional re-education * DVT prophylaxis: This should continue for 12 weeks after injury with low molecular weight heparin * Follow up with Neurosurgery for additional monitoring and treatment of tumor diagnosis. Additional issues reviewed without change include adjustment disorder with depressed mood, skin ulceration, elevated blood sugars. A total of 25 min was spent on the floor in the care of the patient, the majority of which was spent counseling and coordination of care regarding spinal cord specific issues with the patient as well as staff. 12/15/18 13:03 12/27/18 09:49 12/27/18 12:59 12/29/18 13:20 01/03/19 10:28 Subjective: Chief complaint: Chills No acute events overnight. Patient denies any new shortness of breath or chest pain, no new numbness, tingling, or weakness. She endorses chills during times that she has had fevers over the past few days. Seems to have improved somewhat after starting the Bactrim. Discussed relationship of fevers and chills, and also noted that typically with spinal cord injury if it is an environmental fever than the patient will feel hot rather than cold. Patient was seen with an in-person bar pointer. She otherwise had no concerns from a medical standpoint. Objective: Vital Signs Temp Pulse Resp BP Pulse Ox 38.9 C H 92 18 86/55 L 93 01/03/19 06:24 01/03/19 06:24 01/03/19 06:24 01/03/19 06:24 01/03/19 06:24 Laboratory Results 01/02/19 09:45 01/02/19 05:30 01/02/19 01/03/19 01/04/19 05:59 05:59 05:59 Intake Total 960 200 Output Total 1000 760 200 Balance -40 -560 -200 Physical Exam - Physical Exam General Appearance: WD/WN, alert, no apparent distress, other (Seated in a power wheelchair.) EENT: No scleral icterus (R), No scleral icterus (L) Respiratory: No respiratory distress, No accessory muscle use Cardiac/Chest: normal peripheral pulses, regular rate, rhythm, No edema Abdomen: other (Abdominal binder in place) Skin: normal color, warm/dry, No cyanosis, No diaphoresis Extremities: No pedal edema, No swelling Neuro/Psych: alert, normal mood/affect, motor weakness (Incomplete tetraplegia) , sensory deficit ICD10 Worksheet Patient Problems: Problems Problem Status Onset Spinal cord injury, cervical region Acute
[2019-01-03] MEDS: BISACODYL 10 MG SUPP PR SCH (14:59)
[2019-01-03] MEDS: ENOXAPARIN 40 MG/0.4 ML SYR SC SCH (14:59)
[2019-01-03] MEDS: CARBOXYMETHYLCELLULOSE 1% 0.4 ML DROPERETTE EACHEYE SCH (20:36)
[2019-01-04] MEDS: ACETAMINOPHEN 500 MG TAB PO SCH ×3 (06:33→21:15)
[2019-01-04] MEDS: buPROPion 75 MG TAB PO SCH ×2 (08:47→21:14)
[2019-01-04] MEDS: SODIUM CHLORIDE 1,000 MG TAB PO SCH (08:47)
[2019-01-04] MEDS: DOCUSATE SODIUM 100 MG CAP PO SCH ×2 (08:47→21:14)
[2019-01-04] MEDS: CITALOPRAM 20 MG TAB PO SCH (08:48)
[2019-01-04] MEDS: PANTOPRAZOLE SODIUM 40 MG TAB PO SCH (08:48)
[2019-01-04] MEDS: SULFAMETHOX/TMP 800/160 MG 1 TAB PO SCH ×2 (08:48→21:15)
--- NOTE | 2019-01-04 09:17 | SOAPPROG ---
SOAP Progress Note Assessment/Plan: Spinal cord dysfunction, C3 level, MONIE class 3, status post C3-T1 laminectomy and fusion on 11/24/2018 for resection of an ependymoma. NEW ONSET BILATERAL UPPER EXTREMITY DYSESTHESIAS AND LEFT HAND WEAKNESS. WILL OBTAIN CERVICAL SPINE MRI WITH AND WITHOUT CONTRAST. RULE OUT MASS COMPRESSING CERVICAL CORD, RULE OUT INFARCT, RULE OUT SYRINX. SHE IS SCHEDULED TO HAVE MRI OF BRAIN TODAY AND THEREFORE WILL SCHEDULE THESE TOGETHER. NURSING NOTIFIED. TO ACCOMMODATE THIS, SHE WILL BE SCHEDULED FOR 3:00 P.M. TODAY PER RADIOLOGY. * Initial functional independence measure is 54 on 12/16/2018; no change as of 12/23; improved to 56 as of 12/28/2018. Has increased control of trunk and arms but not yet reflected in any gains in function. She requires Farhan lift for transfer. She did a sliding board transfer with maximal assist of 2. She has trace movement in the lower extremities more so on the left than the right. She has full active range of motion with the upper extremities. She accomplished upper body dressing with moderate to maximal assist. Lower body dressing required total assist. She is incontinent of stool and insensate regarding urge to defecate. No significant improvement in lower extremity strength as of 01/01 exam * Continue PT and OT to optimize mobility and activities of daily living. Hyponatremia. SERUM SODIUM ON 01/02 WAS 136. SERUM SODIUM FOR 01/04 PENDING. IF SERUM SODIUM IS NORMAL TODAY THEN WILL DISCONTINUE SUPPLEMENTAL SODIUM CHLORIDE TABLETS AND DISCONTINUE FLUID RESTRICTIONS. Sodium level from 01/01 was 135. Sodium level this morning pending. Will increase fluids to 1500 cc daily. 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 * Improved to 137 on 12/17/2018 but down to 130 on 12/20/2018. * Normal BMP on 12/23/2018. Na 134 on 12/26/2018. Stable at 134 on 12/30/2018. * Continue sodium chloride tablets 1000 mg three times daily with meals. Fevers, likely neurogenic. CURRENTLY AFEBRILE. CONTINUES ON BACTRIM DS TWICE DAILY FOR SUSPECTED UTI. PRELIMINARY URINE CULTURE E COLI.? CONTAMINANT. FINAL CULTURE PENDING. WILL CONTINUE TO FOLLOW. ALK-PHOS FROM 01/02 40 * Labs and CT scan negative for pneumonia, pulmonary embolus, * Await blood culture results. BLOOD CULTURE NEGATIVE AFTER 36 HR. WILL CONTINUE TO FOLLOW. * Repeating labs 12/30/2018 due to symptoms overnight. White blood cell count, ESR and CRP are not suggestive of infection. * Continue incentive spirometry. Continue to monitor for any symptoms of infection. Neurogenic bowel * Getting daily bisacodyl suppository and docusate is prescribed. Having daily bowel movements. Neurogenic bladder * Not requiring catheterization and has low postvoid residuals. Discontinue bladder scans. Continued scheduled toileting. Adjustment disorder with depressed mood. * Initiate citalopram 10 mg q.day starting 12/24/2018. Continue bupropion. * dice manager is available for counseling. Risk for autonomic dysreflexia. She appears to have intact sensation, but she may not have appropriate parasympathetic control. * Blood pressures and symptoms of distress will be monitored, and she will be treated with the autonomic dysreflexia protocol. * Will use nitroglycerin paste on a p.r.n. basis if non-pharmacologic measures are unsuccessful. * Has had no symptoms. Skin ulcer, right buttock, possibly from shear. Resolved. 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 * Valacyclovir started 12/17/2018. Continued 3 days total. Pulmonary. CHEST X-RAY FROM 01/02 SHOWED ATELECTASIS LEFT LOWER LUNG GUZMAN. PATIENT ENCOURAGED TO CONTINUE WITH INCENTIVE SPIROMETER 10 PUFFS PER HOUR WHILE AWAKE. PULMONARY REHABILITATION-THERAPIST PLEASE ADDRESS DIAPHRAGMATIC STRENGTHENING AND STRENGTHENING OF ACCESSORY RESPIRATORY MUSCLES. * Has been assessed by Respiratory therapy. Achieving near normal pressures with incentive spirometry. Continue incentive spirometry. Contracture prevention. * No spasticity at present but will initiate spasticity of management with medications of a develops. HAS GREATER THAN 10 BEATS RIGHT ANKLE CLONUS. WILL ASK PHYSICAL THERAPY IF THIS IS INTERFERING WITH TRANSFERS. * Podus boots while in bed to prevent ankle contractures. Low blood pressure. JB hose, abdominal binder, as needed for orthostatic symptoms. IF SERUM SODIUM IS NORMAL ON 01/02 BLOOD DRAW THEN WILL INCREASE FLUIDS WHICH HOPEFULLY WILL HELP RAISE BLOOD PRESSURE TO NORMAL LEVELS. Elevated blood sugars in the hospital, likely due to dexamethasone with possible risk for diabetes mellitus, given her age and body habitus. * Occasional use of insulin initially on the rehabilitation unit. Insulin and blood sugar checks were discontinued as dexamethasone dose has come down. Prophylaxis for postoperative patient with spinal cord injury. She is on a dexamethasone taper, and this will be continued. * As her mobility is severely limited, she will also be continued on enoxaparin. * Will initiate GI prophylaxis with pantoprazole, as long as she is on both dexamethasone and enoxaparin. * Incentive spirometry, as she has a weak cough. * She is to wear her cervical collar at all times, except when showering. She has spinal precautions for the neck with no bending, twisting, or lifting greater than 10 pounds. DISPOSITION: Plan for discharge to sister's home 01/12/2019 to 01/19/2019. Will need extensive family training if she is to go home.. FOLLOWUP: She is to follow up with Neurosurgeon Dr. Palmer in approximately 6 weeks post surgery, which would be January 04. Discussed with neurosurgery RACHANA West, 12/22/2017. She can follow up after discharge. Justification for durable medical equipment. 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 Power wheelchair: * This patient has a mobility limitation that significantly impairs 1 or more mobility related ADLs in the home. * Her functional mobility deficit cannot be resolved with a walker or cane. * Her home is adequate for accessing rooms and maneuvering space and surfaces. * The wheelchair will significantly improve her ability to participate in mobility related ADLs and the patient will use it regularly. * Patient has not expressed and unwillingness to use the wheelchair. * Patient has sufficient physical and mental ability to safely use the wheelchair. Wheelchair accessories: * She needs a manual reclining back on the wheelchair. She is at high risk for development of a pressure ulcer and is unable to perform functional weight shift. * She needs safety belt/pelvic strap. She has weak upper body muscles and upper body instability which requires use for proper positioning. * She needs swing away/retractable arm rests. She most move the component of the way to perform a slide transfer to chair bed Hospital bed: * She needs a semi-electric hospital bed. She requires frequent changes in body position due to the risk of skin breakdown. Farhan lift: * She needs a Farhan lift with commode and standard U shaped sling. * She requires the lift to allow her to discharge to her home with 1 person assist. * She lacks the ability to transfer to her power chair or commode by herself. * Her family is willing and able to assist the patient with the lift. 01/04/19 09:23 Subjective: Patient reports a new onset of numbness and tingling in the arms forearms and hands the began yesterday evening at 7:00 p.m. Without initiating event. Patient does not endorse numbness or tingling in the perioral region, face. Denies sensory disturbance in the cape like distribution. She does report some new onset of left hand weakness which was manifested by not being able to manipulate call signal earlier this morning. Objective: Vital Signs Temp Pulse Resp BP Pulse Ox 37.2 C 88 16 87/55 L 95 01/04/19 06:45 01/04/19 06:45 01/04/19 06:45 01/04/19 06:45 01/04/19 06:45 Laboratory Results 01/02/19 09:45 01/02/19 05:30 01/03/19 01/04/19 01/05/19 05:59 05:59 05:59 Intake Total 200 1040 Output Total 760 925 Balance -560 115 Physical Exam - Physical Exam General Appearance: WD/WN, alert, no apparent distress, other (Seated in wheelchair. TLSO and hard cervical collar in place.) EENT: pale conjunctiva (R), pale conjunctiva (L) Neck: supple Respiratory: lungs clear, normal breath sounds Cardiac/Chest: regular rate, rhythm, No diastolic murmur, No systolic murmur Abdomen: non-tender, soft, other (No suprapubic tenderness) Neuro/Psych: alert, oriented x 3, motor weakness (She reports subjective weakness of left hand numbness which was hard to discern compared to a previous exam), sensory deficit, other (C3 incomplete quadriplegia) ICD10 Worksheet Patient Problems: Problems Problem Status Onset Spinal cord injury, cervical region Acute
[2019-01-04] MEDS ORDERED: GADOBUTROL 10 ML VIAL IVP ONE (16:17)
[2019-01-04] MEDS: ENOXAPARIN 40 MG/0.4 ML SYR SC SCH (18:13)
[2019-01-04] MEDS: BISACODYL 10 MG SUPP PR SCH (18:14)
[2019-01-04] MEDS: CARBOXYMETHYLCELLULOSE 1% 0.4 ML DROPERETTE EACHEYE SCH (21:14)
[2019-01-05] MEDS: ACETAMINOPHEN 500 MG TAB PO SCH ×3 (05:35→21:26)
[2019-01-05] MEDS: DOCUSATE SODIUM 100 MG CAP PO SCH ×2 (09:06→21:26)
[2019-01-05] MEDS: CITALOPRAM 20 MG TAB PO SCH (09:07)
[2019-01-05] MEDS: buPROPion 75 MG TAB PO SCH ×2 (09:07→21:13)
[2019-01-05] MEDS: SULFAMETHOX/TMP 800/160 MG 1 TAB PO SCH (09:08)
[2019-01-05] MEDS: PANTOPRAZOLE SODIUM 40 MG TAB PO SCH (09:08)
--- NOTE | 2019-01-05 15:33 | SOAPPROG ---
SOAP Progress Note Assessment/Plan: Assessment: Spinal cord dysfunction, C3 level, MONIE class 3, status post C3-T1 laminectomy and fusion on 11/24/2018 for resection of an ependymoma. * Initial functional independence measure is 54 on 12/16/2018; no change as of 12/23; improved to 56 as of 12/28/2018, decline to 50 as of 01/04/2019. Has increased control of trunk and arms but not yet reflected in any gains in function. She requires Farhan lift for transfer. She did a sliding board transfer with maximal assist of 2. She has trace movement in the lower extremities more so on the left than the right. She has full active range of motion with the upper extremities. She accomplished upper body dressing with moderate to maximal assist. Lower body dressing required total assist. Improved mobility with motorized wheelchair, and improved bowel and bladder function, but marked decrease in cognition and communication noted on 01/04/2019. * Continue PT and OT to optimize mobility and activities of daily living. 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 * Sodium chloride supplements discontinued on 01/04/2019. Continue 1000 cc per day fluid restriction, started 12/21/2018. * Recheck BMP 01/06/2018. Upper extremity dysesthesias noted on 01/04/2018. MRI brain and C-spine without changes. Fevers, likely neurogenic. * Labs and CT scan negative for pneumonia, pulmonary embolus, UTI. Normal white blood cell count, normal ESR and CRP. * Blood cultures 12/25 and 12/30/2018 were negative. * Repeat labs 12/30/2018 due to symptoms overnight, with white blood cell count, ESR and CRP not suggestive of infection. * Continue incentive spirometry. Continue to monitor for any symptoms of infection. Neurogenic bowel * Getting daily bisacodyl suppository and docusate is prescribed. Having daily bowel movements. Neurogenic bladder * Not requiring catheterization and has low postvoid residuals. Discontinue bladder scans. Continued scheduled toileting. Weekly positive UA on 01/02/2019; urine culture positive for 2 strains of Escherichia coli, both resistant to Bactrim. Otherwise no signs or symptoms of UTI. Discontinue Bactrim, 01/05/2019. Adjustment disorder with depressed mood. * Initiate citalopram 10 mg q.day starting 12/24/2018. Continue bupropion. * manager desktop is available for counseling. Risk for autonomic dysreflexia. She appears to have intact sensation, but she may not have appropriate parasympathetic control. * Blood pressures and symptoms of distress will be monitored, and she will be treated with the autonomic dysreflexia protocol. * Will use nitroglycerin paste on a p.r.n. basis if non-pharmacologic measures are unsuccessful. * Has had no symptoms. Skin ulcer, right buttock, possibly from shear. Resolved. 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 * Valacyclovir started 12/17/2018. Continued 3 days total. Pulmonary.. * Has been assessed by Respiratory therapy. Achieving near normal pressures with incentive spirometry. Continue incentive spirometry. Contracture prevention. * No spasticity at present but will initiate spasticity of management with medications of a develops. * Podus boots while in bed to prevent ankle contractures. Low blood pressure. JB hose, abdominal binder, as needed for orthostatic symptoms. Elevated blood sugars in the hospital, likely due to dexamethasone with possible risk for diabetes mellitus, given her age and body habitus. * Occasional use of insulin initially on the rehabilitation unit. Insulin and blood sugar checks were discontinued as dexamethasone dose has come down. Prophylaxis for postoperative patient with spinal cord injury. She is on a dexamethasone taper, and this will be continued. * As her mobility is severely limited, she will also be continued on enoxaparin. * Will initiate GI prophylaxis with pantoprazole, as long as she is on both dexamethasone and enoxaparin. * Incentive spirometry, as she has a weak cough. * She is to wear her cervical collar at all times, except when showering. She has spinal precautions for the neck with no bending, twisting, or lifting greater than 10 pounds. DISPOSITION: Plan for discharge to sister's home briefly, with [facility] FOLLOWUP: She is to follow up with Neurosurgeon Dr. Palmer in approximately 6 weeks post surgery, which would be January 04. Discussed with neurosurgery RACHANA West, 12/22/2017. She can follow up after discharge. Justification for durable medical equipment. 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 Power wheelchair: * This patient has a mobility limitation that significantly impairs 1 or more mobility related ADLs in the home. * Her functional mobility deficit cannot be resolved with a walker or cane. * Her home is adequate for accessing rooms and maneuvering space and surfaces. * The wheelchair will significantly improve her ability to participate in mobility related ADLs and the patient will use it regularly. * Patient has not expressed and unwillingness to use the wheelchair. * Patient has sufficient physical and mental ability to safely use the wheelchair. Wheelchair accessories: * She needs a manual reclining back on the wheelchair. She is at high risk for development of a pressure ulcer and is unable to perform functional weight shift. * She needs safety belt/pelvic strap. She has weak upper body muscles and upper body instability which requires use for proper positioning. * She needs swing away/retractable arm rests. She most move the component of the way to perform a slide transfer to chair bed Hospital bed: * She needs a semi-electric hospital bed. She requires frequent changes in body position due to the risk of skin breakdown. Farhan lift: * She needs a Farhan lift with commode and standard U shaped sling. * She requires the lift to allow her to discharge to her home with 1 person assist. * She lacks the ability to transfer to her power chair or commode by herself. * Her family is willing and able to assist the patient with the lift. 01/05/19 15:22 Subjective: Has a headache today. Also hurts on her neck. Otherwise without complaints. No fevers or chills, no cough or dyspnea, no dysuria. Objective: Vital Signs Temp Pulse Resp BP Pulse Ox 36.8 C 83 16 99/68 L 94 01/05/19 06:06 01/05/19 06:06 01/05/19 06:06 01/05/19 06:06 01/05/19 06:06 Microbiology 01/02/19 19:00 Urine Culture - Final Urine,Catheterized Escherichia Coli Escherichia Coli#2 12/30/18 08:30 Blood Culture - Final Blood 12/30/18 08:30 Blood Culture - Final Blood Laboratory Results 01/02/19 09:45 01/04/19 06:15 01/04/19 01/05/19 01/06/19 05:59 05:59 05:59 Intake Total 1040 1260 500 Output Total 925 700 300 Balance 115 560 200 Physical Exam - Physical Exam General Appearance: WD/WN, alert, no apparent distress Respiratory: No respiratory distress, No accessory muscle use Skin: normal color, warm/dry Neuro/Psych: alert, normal mood/affect, motor weakness ICD10 Worksheet Patient Problems: Problems Problem Status Onset Spinal cord injury, cervical region Acute
[2019-01-05] MEDS: ENOXAPARIN 40 MG/0.4 ML SYR SC SCH (16:59)
[2019-01-05] MEDS: BISACODYL 10 MG SUPP PR SCH (17:45)
[2019-01-05] MEDS: CARBOXYMETHYLCELLULOSE 1% 0.4 ML DROPERETTE EACHEYE SCH (21:16)
[2019-01-06] MEDS: ACETAMINOPHEN 500 MG TAB PO SCH ×3 (05:33→21:34)
[2019-01-06] MEDS: CITALOPRAM 20 MG TAB PO SCH (08:30)
[2019-01-06] MEDS: PANTOPRAZOLE SODIUM 40 MG TAB PO SCH (08:31)
[2019-01-06] MEDS: buPROPion 75 MG TAB PO SCH ×2 (08:32→21:34)
[2019-01-06] MEDS: DOCUSATE SODIUM 100 MG CAP PO SCH ×2 (08:32→21:34)
--- NOTE | 2019-01-06 12:03 | SOAPPROG ---
SOAP Progress Note Assessment/Plan: Assessment: Spinal cord dysfunction, C3 level, MONIE class 3, status post C3-T1 laminectomy and fusion on 11/24/2018 for resection of an ependymoma. * Initial functional independence measure is 54 on 12/16/2018; no change as of 12/23; improved to 56 as of 12/28/2018, decline to 50 as of 01/04/2019. Has increased control of trunk and arms but not yet reflected in any gains in function. She requires Farhan lift for transfer. She did a sliding board transfer with maximal assist of 2. She has trace movement in the lower extremities more so on the left than the right. She has full active range of motion with the upper extremities. She accomplished upper body dressing with moderate to maximal assist. Lower body dressing required total assist. Improved mobility with motorized wheelchair, and improved bowel and bladder function, but marked decrease in cognition and communication noted on 01/04/2019. * Continue PT and OT to optimize mobility and activities of daily living. * Discussed with Neurosurgeon Dr. Palmer, 01/06/2019. May D/C cervical collar. 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 * Sodium chloride supplements discontinued on 01/04/2019. * Resolved on BMP 01/06/2018. Upper extremity dysesthesias noted on 01/04/2018. MRI brain and C-spine without changes. Fevers, likely neurogenic. * Labs and CT scan negative for pneumonia, pulmonary embolus, UTI. Normal white blood cell count, normal ESR and CRP. * Blood cultures 12/25 and 12/30/2018 were negative. * Repeat labs 12/30/2018 due to symptoms overnight, with white blood cell count, ESR and CRP not suggestive of infection. * Continue incentive spirometry. Continue to monitor for any symptoms of infection. Neurogenic bowel * Getting daily bisacodyl suppository and docusate is prescribed. Having daily bowel movements. Neurogenic bladder * Not requiring catheterization and has low postvoid residuals. Discontinue bladder scans. Continued scheduled toileting. Weakly positive UA on 01/02/2019; urine culture positive for 2 strains of Escherichia coli, both resistant to Bactrim. Otherwise no signs or symptoms of UTI. Discontinue Bactrim, 01/05/2019. Adjustment disorder with depressed mood. * Initiate citalopram 10 mg q.day starting 12/24/2018. Continue bupropion. * manager solution is available for counseling. Risk for autonomic dysreflexia. She appears to have intact sensation, but she may not have appropriate parasympathetic control. * Blood pressures and symptoms of distress will be monitored, and she will be treated with the autonomic dysreflexia protocol. * Will use nitroglycerin paste on a p.r.n. basis if non-pharmacologic measures are unsuccessful. * Has had no symptoms. Skin ulcer, right buttock, possibly from shear. Resolved. 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 * Valacyclovir started 12/17/2018. Continued 3 days total. Pulmonary.. * Has been assessed by Respiratory therapy. Achieving near normal pressures with incentive spirometry. Continue incentive spirometry. Contracture prevention. * No spasticity at present but will initiate spasticity of management with medications of a develops. * Podus boots while in bed to prevent ankle contractures. Low blood pressure. JB hose, abdominal binder, as needed for orthostatic symptoms. Elevated blood sugars in the hospital, likely due to dexamethasone with possible risk for diabetes mellitus, given her age and body habitus. * Occasional use of insulin initially on the rehabilitation unit. Insulin and blood sugar checks were discontinued as dexamethasone dose has come down. Prophylaxis for postoperative patient with spinal cord injury. She is on a dexamethasone taper, and this will be continued. * As her mobility is severely limited, she will also be continued on enoxaparin. * Will initiate GI prophylaxis with pantoprazole, as long as she is on both dexamethasone and enoxaparin. * Incentive spirometry, as she has a weak cough. * She is to wear her cervical collar at all times, except when showering. She has spinal precautions for the neck with no bending, twisting, or lifting greater than 10 pounds. DISPOSITION: Plan for discharge to sister's home briefly, with anticipated discharge subsequently to assisted facility. Discharge planned for 2018. FOLLOWUP: She is to follow up with Neurosurgeon Dr. Palmer after discharge. Justification for durable medical equipment. 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 Power wheelchair: * This patient has a mobility limitation that significantly impairs 1 or more mobility related ADLs in the home. * Her functional mobility deficit cannot be resolved with a walker or cane. * Her home is adequate for accessing rooms and maneuvering space and surfaces. * The wheelchair will significantly improve her ability to participate in mobility related ADLs and the patient will use it regularly. * Patient has not expressed and unwillingness to use the wheelchair. * Patient has sufficient physical and mental ability to safely use the wheelchair. Wheelchair accessories: * She needs a manual reclining back on the wheelchair. She is at high risk for development of a pressure ulcer and is unable to perform functional weight shift. * She needs safety belt/pelvic strap. She has weak upper body muscles and upper body instability which requires use for proper positioning. * She needs swing away/retractable arm rests. She most move the component of the way to perform a slide transfer to chair bed Hospital bed: * She needs a semi-electric hospital bed. She requires frequent changes in body position due to the risk of skin breakdown. Farhan lift: * She needs a Farhan lift with commode and standard U shaped sling. * She requires the lift to allow her to discharge to her home with 1 person assist. * She lacks the ability to transfer to her power chair or commode by herself. * Her family is willing and able to assist the patient with the lift. 01/06/19 12:07 Subjective: Continues to have intermittent headaches, and neck discomfort. Otherwise without complaints. Sleeping well. No cough or dyspnea, no fevers or chills. Objective: Vital Signs Temp Pulse Resp BP Pulse Ox 36.8 C 82 16 93/64 L 94 01/06/19 05:37 01/06/19 07:56 01/06/19 05:37 01/06/19 07:56 01/06/19 07:56 Microbiology 01/02/19 19:00 Urine Culture - Final Urine,Catheterized Escherichia Coli Escherichia Coli#2 Laboratory Results 01/02/19 09:45 01/06/19 05:40 01/05/19 01/06/19 01/07/19 05:59 05:59 05:59 Intake Total 1260 1000 Output Total 700 900 Balance 560 100 Physical Exam - Physical Exam General Appearance: WD/WN, alert, no apparent distress Respiratory: No respiratory distress, No accessory muscle use Cardiac/Chest: regular rate, rhythm, No edema, No diastolic murmur, No systolic murmur Skin: normal color, warm/dry, other (Multiple comedones over forehead and chin) Neuro/Psych: alert, normal mood/affect, oriented x 3, motor weakness ICD10 Worksheet Patient Problems: Problems Problem Status Onset Spinal cord injury, cervical region Acute
[2019-01-06] MEDS: BISACODYL 10 MG SUPP PR SCH (16:31)
[2019-01-06] MEDS: ENOXAPARIN 40 MG/0.4 ML SYR SC SCH (16:35)
[2019-01-06] MEDS: CARBOXYMETHYLCELLULOSE 1% 0.4 ML DROPERETTE EACHEYE SCH (21:37)
[2019-01-07] MEDS: ACETAMINOPHEN 500 MG TAB PO SCH ×3 (06:15→20:55)
[2019-01-07] MEDS: buPROPion 75 MG TAB PO SCH ×2 (08:52→21:03)
[2019-01-07] MEDS: PANTOPRAZOLE SODIUM 40 MG TAB PO SCH (08:52)
[2019-01-07] MEDS: DOCUSATE SODIUM 100 MG CAP PO SCH (08:53)
[2019-01-07] MEDS: CITALOPRAM 20 MG TAB PO SCH (08:53)
--- NOTE | 2019-01-07 10:49 | SOAPPROG ---
SOAP Progress Note Assessment/Plan: Assessment/Plan: Non Traumatic SCI - C3 level, MONIE C, status post C3-T1 laminectomy and fusion on 11/24/2018 for resection of an ependymoma. * Initial functional independence measure is 54 on 12/16/2018; no change as of 12/23; improved to 56 as of 12/28/2018, decline to 50 as of 01/04/2019. Has increased control of trunk and arms but not yet reflected in any gains in function. She requires Farhan lift for transfer. She did a sliding board transfer with maximal assist of 2. She has trace movement in the lower extremities more so on the left than the right. She has full active range of motion with the upper extremities. She accomplished upper body dressing with moderate to maximal assist. Lower body dressing required total assist. Improved mobility with motorized wheelchair, and improved bowel and bladder function, but marked decrease in cognition and communication noted on 01/04/2019. * Continue PT and OT to optimize mobility and activities of daily living. * Discussed with Neurosurgeon Dr. Palmer, 01/06/2019. May D/C cervical collar. 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 * Sodium chloride supplements discontinued on 01/04/2019. * Resolved on BMP 01/06/2018.- Pt not on any further fluid restriction - has remained stable. Upper extremity dysesthesias noted on 01/04/2018. MRI brain and C-spine without changes. This can be quite common after Spinal Cord injury. Will monitor and treat symptomatically Fevers, Potentially Environmental * Labs and CT scan negative for pneumonia, pulmonary embolus, UTI. Normal white blood cell count, normal ESR and CRP. * Blood cultures 12/25 and 12/30/2018 were negative. * Repeat labs 12/30/2018 due to symptoms overnight, with white blood cell count, ESR and CRP not suggestive of infection. * Continue incentive spirometry. Continue to monitor for any symptoms of infection. Neurogenic bowel * Getting daily bisacodyl suppository and docusate is prescribed. Having daily bowel movements. Neurogenic bladder * Not requiring catheterization and has low postvoid residuals. Discontinue bladder scans. Continued scheduled toileting. Weakly positive UA on 01/02/2019; urine culture positive for 2 strains of Escherichia coli, both resistant to Bactrim. Otherwise no signs or symptoms of UTI. Discontinue Bactrim, 01/05/2019. Adjustment disorder with depressed mood. * Initiate citalopram 10 mg q.day starting 12/24/2018. Continue bupropion. * manager relocation is available for counseling. * Likely will benefit from re-integration activities and supportive therapy Risk for autonomic dysreflexia. * Blood pressures and symptoms of distress will be monitored, and she will be treated with the autonomic dysreflexia protocol. * Will use nitroglycerin paste on a p.r.n. basis if non-pharmacologic measures are unsuccessful. * Has had no symptoms. Skin ulcer, right buttock, possibly from shear. Resolved. 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 * Valacyclovir started 12/17/2018. Continued 3 days total. Pulmonary.. * Has been assessed by Respiratory therapy. Achieving near normal pressures with incentive spirometry. Continue incentive spirometry. Contracture prevention. * No spasticity at present but will initiate spasticity of management with medications of a develops. * Podus boots while in bed to prevent ankle contractures. Low blood pressure. ZANE hose, abdominal binder, as needed for orthostatic symptoms. Elevated blood sugars in the hospital, likely due to dexamethasone with possible risk for diabetes mellitus, given her age and body habitus. * Occasional use of insulin initially on the rehabilitation unit. Insulin and blood sugar checks were discontinued as dexamethasone dose has come down. Prophylaxis for postoperative patient with spinal cord injury. She is on a dexamethasone taper, and this will be continued. * As her mobility is severely limited, she will also be continued on enoxaparin. * Will initiate GI prophylaxis with pantoprazole, as long as she is on both dexamethasone and enoxaparin. * Incentive spirometry, as she has a weak cough. * She is to wear her cervical collar at all times, except when showering. She has spinal precautions for the neck with no bending, twisting, or lifting greater than 10 pounds. DISPOSITION: Plan for discharge to sister's home briefly, with [facility] Discharge planned for 2018. FOLLOWUP: She is to follow up with Neurosurgeon Dr. Palmer after discharge. Justification for durable medical equipment. 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 Power wheelchair: * This patient has a mobility limitation that significantly impairs 1 or more mobility related ADLs in the home. * Her functional mobility deficit cannot be resolved with a walker or cane. * Her home is adequate for accessing rooms and maneuvering space and surfaces. * The wheelchair will significantly improve her ability to participate in mobility related ADLs and the patient will use it regularly. * Patient has not expressed and unwillingness to use the wheelchair. * Patient has sufficient physical and mental ability to safely use the wheelchair. Wheelchair accessories: * She needs a manual reclining back on the wheelchair. She is at high risk for development of a pressure ulcer and is unable to perform functional weight shift. * She needs safety belt/pelvic strap. She has weak upper body muscles and upper body instability which requires use for proper positioning. * She needs swing away/retractable arm rests. She most move the component of the way to perform a slide transfer to chair bed Hospital bed: * She needs a semi-electric hospital bed. She requires frequent changes in body position due to the risk of skin breakdown. Farhan lift: * She needs a Farhan lift with commode and standard U shaped sling. * She requires the lift to allow her to discharge to her home with 1 person assist. * She lacks the ability to transfer to her power chair or commode by herself. * Her family is willing and able to assist the patient with the lift. 01/07/19 10:50 Subjective: OVerall she is doing pretty well - Her pain is pretty well controlled. Having some pain around the neck region. Gaining some sensation but the movement is slow. no new rash/sores (RN did skin check this morning before patient was up in her chair). Bowel/bladder going well. Objective: Vital Signs Temp Pulse Resp BP Pulse Ox 97.6 F 81 16 98/67 L 95 01/07/19 08:00 01/07/19 08:00 01/07/19 08:00 01/07/19 08:00 01/07/19 08:00 Laboratory Results 01/02/19 09:45 01/06/19 05:40 01/06/19 01/07/19 01/08/19 05:59 05:59 05:59 Intake Total 1000 690 Output Total 900 1350 Balance 100 -660 Physical Exam - Physical Exam General Appearance: alert, no apparent distress, other (Sitting up in her chair. Very pleasant) EENT: PERRL/EOMI Neck: other (Mild tenderness over the levator/trap region with palpation) Respiratory: lungs clear Cardiac/Chest: regular rate, rhythm Abdomen: other (Mildly distended, not tender. ) Skin: other (has Zane's on her legs. Really no edema felt on exam) Neuro/Psych: alert, normal mood/affect ICD10 Worksheet Patient Problems: Problems Problem Status Onset Spinal cord injury, cervical region Acute
[2019-01-07] MEDS: LIDOCAINE 4%/MENTHOL 1% PATCH TD SCH (13:14)
[2019-01-07] MEDS: BISACODYL 10 MG SUPP PR SCH (16:20)
[2019-01-07] MEDS: ENOXAPARIN 40 MG/0.4 ML SYR SC SCH (16:20)
[2019-01-08] MEDS: CARBOXYMETHYLCELLULOSE 1% 0.4 ML DROPERETTE EACHEYE SCH ×2 (05:45→22:39)
[2019-01-08] MEDS: PATCH REMOVAL 1 EA PATCH TD SCH ×2 (05:45→22:40)
[2019-01-08] MEDS: ACETAMINOPHEN 500 MG TAB PO SCH ×3 (06:37→21:21)
[2019-01-08] MEDS: buPROPion 75 MG TAB PO SCH ×2 (08:14→21:21)
[2019-01-08] MEDS: PANTOPRAZOLE SODIUM 40 MG TAB PO SCH (08:14)
[2019-01-08] MEDS: LIDOCAINE 4%/MENTHOL 1% PATCH TD SCH (08:15)
[2019-01-08] MEDS: CITALOPRAM 20 MG TAB PO SCH (08:15)
--- NOTE | 2019-01-08 12:03 | SOAPPROG ---
SOAP Progress Note Assessment/Plan: Assessment/Plan: Non Traumatic SCI - C3 level, MONIE C, status post C3-T1 laminectomy and fusion on 11/24/2018 for resection of an ependymoma. * Initial functional independence measure is 54 on 12/16/2018; no change as of 12/23; improved to 56 as of 12/28/2018, decline to 50 as of 01/04/2019. Has increased control of trunk and arms but not yet reflected in any gains in function. She requires Farhan lift for transfer. She did a sliding board transfer with maximal assist of 2. She has trace movement in the lower extremities more so on the left than the right. She has full active range of motion with the upper extremities. She accomplished upper body dressing with moderate to maximal assist. Lower body dressing required total assist. Improved mobility with motorized wheelchair, and improved bowel and bladder function, but marked decrease in cognition and communication noted on 01/04/2019. * Continue PT and OT to optimize mobility and activities of daily living. * Discussed with Neurosurgeon Dr. Palmer, 01/06/2019. May D/C cervical collar. * Continued conversation about level of support that will be needed at time of d /c. Has sister and two teenage children living with her - hopeful they will be able to come up to attend 'classes' to receive the education they need. 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 * Sodium chloride supplements/fluid restriction discontinued on 01/04/2019. * Resolved on BMP 01/06/2018. Upper extremity dysesthesias noted on 01/04/2018. MRI brain and C-spine without changes. This can be quite common after Spinal Cord injury. Will monitor and treat symptomatically Fevers, Potentially Environmental * Labs and CT scan negative for pneumonia, pulmonary embolus, UTI. Normal white blood cell count, normal ESR and CRP. * Blood cultures 12/25 and 12/30/2018 were negative. * Repeat labs 12/30/2018 due to symptoms overnight, with white blood cell count, ESR and CRP not suggestive of infection. * Continue incentive spirometry. Continue to monitor for any symptoms of infection. Neurogenic bowel * Getting daily bisacodyl suppository. Held docusate 01/07 12/17 loose stools. Having daily bowel movements. Neurogenic bladder * Not requiring catheterization and has low postvoid residuals. Discontinue bladder scans. Continued scheduled toileting. Weakly positive UA on 01/02/2019; urine culture positive for 2 strains of Escherichia coli, both resistant to Bactrim. Otherwise no signs or symptoms of UTI. Discontinue Bactrim, 01/05/2019. Adjustment disorder with depressed mood. * Initiate citalopram 10 mg q.day starting 12/24/2018. Continue bupropion. * manager applied is available for counseling. * Likely will benefit from re-integration activities and supportive therapy Risk for autonomic dysreflexia. * Blood pressures and symptoms of distress will be monitored, and she will be treated with the autonomic dysreflexia protocol. * Will use nitroglycerin paste on a p.r.n. basis if non-pharmacologic measures are unsuccessful. * Has had no symptoms. Skin ulcer, right buttock, possibly from shear. Resolved. 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 * Valacyclovir started 12/17/2018. Continued 3 days total. Pulmonary.. * Has been assessed by Respiratory therapy. Achieving near normal pressures with incentive spirometry. Continue incentive spirometry. Contracture prevention. * No spasticity at present but will initiate spasticity of management with medications of a develops. * Podus boots while in bed to prevent ankle contractures. Low blood pressure. HANNAH hose, abdominal binder, as needed for orthostatic symptoms. Elevated blood sugars in the hospital, likely due to dexamethasone with possible risk for diabetes mellitus, given her age and body habitus. * Occasional use of insulin initially on the rehabilitation unit. Insulin and blood sugar checks were discontinued as dexamethasone dose has come down/ completed Prophylaxis for postoperative patient with spinal cord injury. Dex taper completed * As her mobility is severely limited, she will also be continued on enoxaparin. * Will initiate GI prophylaxis with pantoprazole, as long as she is on both dexamethasone and enoxaparin. * Incentive spirometry, as she has a weak cough. * Collar discontinued on 01/06 (per discussion with Dr. Palmer). She has spinal precautions for the neck with no bending, twisting, or lifting greater than 10 pounds. DISPOSITION: Plan for discharge to sister's home briefly, with anticipated discharge subsequently to long term facility. Discharge planned for 2018. FOLLOWUP: She is to follow up with Neurosurgeon Dr. Palmer after discharge. Justification for durable medical equipment. 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 Power wheelchair: * This patient has a mobility limitation that significantly impairs 1 or more mobility related ADLs in the home. * Her functional mobility deficit cannot be resolved with a walker or cane. * Her home is adequate for accessing rooms and maneuvering space and surfaces. * The wheelchair will significantly improve her ability to participate in mobility related ADLs and the patient will use it regularly. * Patient has not expressed and unwillingness to use the wheelchair. * Patient has sufficient physical and mental ability to safely use the wheelchair. Wheelchair accessories: * She needs a manual reclining back on the wheelchair. She is at high risk for development of a pressure ulcer and is unable to perform functional weight shift. * She needs safety belt/pelvic strap. She has weak upper body muscles and upper body instability which requires use for proper positioning. * She needs swing away/retractable arm rests. She most move the component of the way to perform a slide transfer to chair bed Hospital bed: * She needs a semi-electric hospital bed. She requires frequent changes in body position due to the risk of skin breakdown. Farhan lift: * She needs a Farhan lift with commode and standard U shaped sling. * She requires the lift to allow her to discharge to her home with 1 person assist. * She lacks the ability to transfer to her power chair or commode by herself. * Her family is willing and able to assist the patient with the lift. 01/08/19 12:03 01/08/19 12:04 Subjective: Feeling good today - Had successful bowel movement last night. pain in neck improved with lidoderm patches. no fevers/chills, dysesthesia improved. Feeling bright today - some concern about the future but appreciates the support to prepare for this Objective: Vital Signs Temp Pulse Resp BP Pulse Ox 99.3 F 86 20 92/59 L 96 01/08/19 07:43 01/08/19 07:43 01/08/19 07:43 01/08/19 07:43 01/08/19 07:43 Laboratory Results 01/02/19 09:45 01/06/19 05:40 01/07/19 01/08/19 01/09/19 05:59 05:59 05:59 Intake Total 690 800 300 Output Total 1350 200 500 Balance -660 600 -200 Physical Exam - Physical Exam General Appearance: alert, no apparent distress, other (Already up in her wheelchair - Editorial Assistant supporting the conversation) EENT: PERRL/EOMI Respiratory: normal breath sounds Cardiac/Chest: regular rate, rhythm Abdomen: normal bowel sounds, other (wearing her abdominal binder) Skin: normal color Extremities: other (Wearing BLE hannah hose - Really no edema bilateral LE) Neuro/Psych: alert, normal mood/affect ICD10 Worksheet Patient Problems: Problems Problem Status Onset Spinal cord injury, cervical region Acute
[2019-01-08] MEDS: BISACODYL 10 MG SUPP PR SCH (16:18)
[2019-01-08] MEDS: ENOXAPARIN 40 MG/0.4 ML SYR SC SCH (16:18)
[2019-01-09] MEDS: ACETAMINOPHEN 500 MG TAB PO SCH ×3 (05:29→20:42)
[2019-01-09] MEDS: LIDOCAINE 4%/MENTHOL 1% PATCH TD SCH (09:17)
[2019-01-09] MEDS: CITALOPRAM 20 MG TAB PO SCH (10:31)
[2019-01-09] MEDS: buPROPion 75 MG TAB PO SCH ×2 (10:31→20:42)
[2019-01-09] MEDS: PANTOPRAZOLE SODIUM 40 MG TAB PO SCH (10:43)
--- NOTE | 2019-01-09 13:10 | SOAPPROG ---
SOAP Progress Note Assessment/Plan: Assessment: Spinal cord dysfunction, C3 level, MONIE class 3, status post C3-T1 laminectomy and fusion on 11/24/2018 for resection of an ependymoma. * Initial functional independence measure is 54 on 12/16/2018; no change as of 12/23; improved to 56 as of 12/28/2018, decline to 50 as of 01/04/2019. Has increased control of trunk and arms but not yet reflected in any gains in function. She requires Farhan lift for transfer. She did a sliding board transfer with maximal assist of 2. She has trace movement in the lower extremities more so on the left than the right. She has full active range of motion with the upper extremities. She accomplished upper body dressing with moderate to maximal assist. Lower body dressing required total assist. Improved mobility with motorized wheelchair, and improved bowel and bladder function, but marked decrease in cognition and communication noted on 01/04/2019. * Continue PT and OT to optimize mobility and activities of daily living. * Discussed with Neurosurgeon Dr. Palmer, 01/06/2019. May D/C cervical collar. 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 * Sodium chloride supplements discontinued on 01/04/2019. * Resolved on BMP 01/06/2018. Upper extremity dysesthesias noted on 01/04/2018. MRI brain and C-spine without changes. Question of otitis, right ear. Minimal findings on exam 01/09/2019. Continue to monitor. Fevers, likely neurogenic. * Labs and CT scan negative for pneumonia, pulmonary embolus, UTI. Normal white blood cell count, normal ESR and CRP. * Blood cultures 12/25 and 12/30/2018 were negative. * Repeat labs 12/30/2018 due to symptoms overnight, with white blood cell count, ESR and CRP not suggestive of infection. * Continue incentive spirometry. Continue to monitor for any symptoms of infection. Neurogenic bowel * Getting daily bisacodyl suppository and docusate is prescribed. Having daily bowel movements. Neurogenic bladder * Not requiring catheterization and has low postvoid residuals. Discontinue bladder scans. Continued scheduled toileting. Weakly positive UA on 01/02/2019; urine culture positive for 2 strains of Escherichia coli, both resistant to Bactrim. Otherwise no signs or symptoms of UTI. Discontinue Bactrim, 01/05/2019. Adjustment disorder with depressed mood. * Initiate citalopram 10 mg q.day starting 12/24/2018. Continue bupropion. 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 Risk for autonomic dysreflexia. She appears to have intact sensation, but she may not have appropriate parasympathetic control. * Blood pressures and symptoms of distress will be monitored, and she will be treated with the autonomic dysreflexia protocol. * Will use nitroglycerin paste on a p.r.n. basis if non-pharmacologic measures are unsuccessful. * Has had no symptoms. Skin ulcer, right buttock, possibly from shear. Resolved. 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 * Valacyclovir started 12/17/2018. Continued 3 days total. Pulmonary.. * Has been assessed by Respiratory therapy. Achieving near normal pressures with incentive spirometry. Continue incentive spirometry. Contracture prevention. * No spasticity at present but will initiate spasticity of management with medications of a develops. * Podus boots while in bed to prevent ankle contractures. Low blood pressure. JB hose, abdominal binder, as needed for orthostatic symptoms. Elevated blood sugars in the hospital, likely due to dexamethasone with possible risk for diabetes mellitus, given her age and body habitus. * Occasional use of insulin initially on the rehabilitation unit. Insulin and blood sugar checks were discontinued as dexamethasone dose has come down. Prophylaxis for postoperative patient with spinal cord injury. She is on a dexamethasone taper, and this will be continued. * As her mobility is severely limited, she will also be continued on enoxaparin. * Will initiate GI prophylaxis with pantoprazole, as long as she is on both dexamethasone and enoxaparin. * Incentive spirometry, as she has a weak cough. * She is to wear her cervical collar at all times, except when showering. She has spinal precautions for the neck with no bending, twisting, or lifting greater than 10 pounds. DISPOSITION: Plan for discharge to sister's home briefly, with anticipated discharge subsequently to long-term facility. Discharge planned for 2018. FOLLOWUP: She is to follow up with Neurosurgeon Dr. Palmer after discharge. Justification for durable medical equipment. 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 Power wheelchair: * This patient has a mobility limitation that significantly impairs 1 or more mobility related ADLs in the home. * Her functional mobility deficit cannot be resolved with a walker or cane. * Her home is adequate for accessing rooms and maneuvering space and surfaces. * The wheelchair will significantly improve her ability to participate in mobility related ADLs and the patient will use it regularly. * Patient has not expressed and unwillingness to use the wheelchair. * Patient has sufficient physical and mental ability to safely use the wheelchair. Wheelchair accessories: * She needs a manual reclining back on the wheelchair. She is at high risk for development of a pressure ulcer and is unable to perform functional weight shift. * She needs safety belt/pelvic strap. She has weak upper body muscles and upper body instability which requires use for proper positioning. * She needs swing away/retractable arm rests. She most move the component of the way to perform a slide transfer to chair bed Hospital bed: * She needs a semi-electric hospital bed. She requires frequent changes in body position due to the risk of skin breakdown. Farhan lift: * She needs a Farhan lift with commode and standard U shaped sling. * She requires the lift to allow her to discharge to her home with 1 person assist. * She lacks the ability to transfer to her power chair or commode by herself. * Her family is willing and able to assist the patient with the lift. 01/06/19 12:07 01/09/19 13:06 Subjective: Reports right ear pain. Otherwise doing well, with no complaints. Objective: Vital Signs Temp Pulse Resp BP Pulse Ox 37.1 C 76 16 98/64 L 95 01/09/19 05:52 01/09/19 05:52 01/09/19 05:52 01/09/19 05:52 01/09/19 05:52 Laboratory Results 01/02/19 09:45 01/06/19 05:40 01/08/19 01/09/19 01/10/19 05:59 05:59 05:59 Intake Total 800 650 Output Total 200 1450 Balance 600 -800 Physical Exam - Physical Exam General Appearance: WD/WN, alert, no apparent distress EENT: TM abnormal (R) (Mild [place] in with central spot of erythema.), No purulent nasal drainage, No rhinorrhea, No pharyngeal erythema Respiratory: No accessory muscle use, No decreased breath sounds Cardiac/Chest: No edema Skin: normal color, warm/dry Neuro/Psych: alert, normal mood/affect, motor weakness ICD10 Worksheet Patient Problems: Problems Problem Status Onset Spinal cord injury, cervical region Acute
[2019-01-09] MEDS: BISACODYL 10 MG SUPP PR SCH (15:11)
[2019-01-09] MEDS: ENOXAPARIN 40 MG/0.4 ML SYR SC SCH (15:11)
[2019-01-09] MEDS: CARBOXYMETHYLCELLULOSE 1% 0.4 ML DROPERETTE EACHEYE SCH (20:43)
[2019-01-10] MEDS: PATCH REMOVAL 1 EA PATCH TD SCH ×2 (01:04→21:07)
[2019-01-10] MEDS: ACETAMINOPHEN 500 MG TAB PO SCH ×3 (06:14→20:49)
[2019-01-10] MEDS: buPROPion 75 MG TAB PO SCH ×2 (09:44→20:49)
[2019-01-10] MEDS: CITALOPRAM 20 MG TAB PO SCH (09:44)
[2019-01-10] MEDS: LIDOCAINE 4%/MENTHOL 1% PATCH TD SCH (11:41)
--- NOTE | 2019-01-10 12:50 | SOAPPROG ---
SOAP Progress Note Assessment/Plan: Assessment: Spinal cord dysfunction, C3 level, MONIE class C, status post C3-T1 laminectomy and fusion on 11/24/2018 for resection of an ependymoma. * Initial functional independence measure is 54 on 12/16/2018; no change as of 12/23; improved to 56 as of 12/28/2018, decline to 50 as of 01/04/2019. Has increased control of trunk and arms but not yet reflected in any gains in function. She requires Farhan lift for transfer. She did a sliding board transfer with maximal assist of 2. She has trace movement in the lower extremities more so on the left than the right. She has full active range of motion with the upper extremities. She accomplished upper body dressing with moderate to maximal assist. Lower body dressing required total assist. Improved mobility with motorized wheelchair, and improved bowel and bladder function, but marked decrease in cognition and communication noted on 01/04/2019. * Continue PT and OT to optimize mobility and activities of daily living. * Discussed with Neurosurgeon Dr. Palmer, 01/06/2019. May D/C cervical collar. 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 * Sodium chloride supplements discontinued on 01/04/2019. * Resolved on BMP 01/06/2018. Upper extremity dysesthesias noted on 01/04/2018. MRI brain and C-spine without changes. Pain, below right ear. MRI 6 days ago with no sinusitis and no evidence of abscess in the surgical site. Exam not consistent with otitis. * Pain has developed since discontinuation of cervical collar. Might be due to new use of muscles to support head. * Check CBC to rule out elevated white count that could be consistent with infection. Continue to monitor. Fevers, likely neurogenic. * Labs and CT scan negative for pneumonia, pulmonary embolus, UTI. Normal white blood cell count, normal ESR and CRP. * Blood cultures 12/25 and 12/30/2018 were negative. * Repeat labs 12/30/2018 due to symptoms overnight, with white blood cell count, ESR and CRP not suggestive of infection. * Continue incentive spirometry. Continue to monitor for any symptoms of infection. Neurogenic bowel * Getting daily bisacodyl suppository and docusate is prescribed. Having daily bowel movements. Neurogenic bladder * Not requiring catheterization and has low postvoid residuals. Discontinue bladder scans. Continued scheduled toileting. Weakly positive UA on 01/02/2019; urine culture positive for 2 strains of Escherichia coli, both resistant to Bactrim. Otherwise no signs or symptoms of UTI. Discontinue Bactrim, 01/05/2019. Adjustment disorder with depressed mood. * Initiate citalopram 10 mg q.day starting 12/24/2018. Continue bupropion. * application developer manager is available for counseling. Risk for autonomic dysreflexia. She appears to have intact sensation, but she may not have appropriate parasympathetic control. * Blood pressures and symptoms of distress will be monitored, and she will be treated with the autonomic dysreflexia protocol. * Will use nitroglycerin paste on a p.r.n. basis if non-pharmacologic measures are unsuccessful. * Has had no symptoms. Skin ulcer, right buttock, possibly from shear. Resolved. 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 * Valacyclovir started 12/17/2018. Continued 3 days total. Pulmonary.. * Has been assessed by Respiratory therapy. Achieving near normal pressures with incentive spirometry. Continue incentive spirometry. Contracture prevention. * No spasticity at present but will initiate spasticity of management with medications of a develops. * Podus boots while in bed to prevent ankle contractures. Low blood pressure. JB hose, abdominal binder, as needed for orthostatic symptoms. Elevated blood sugars in the hospital, likely due to dexamethasone with possible risk for diabetes mellitus, given her age and body habitus. * Occasional use of insulin initially on the rehabilitation unit. Insulin and blood sugar checks were discontinued as dexamethasone dose has come down. Prophylaxis for postoperative patient with spinal cord injury. She is on a dexamethasone taper, and this will be continued. * As her mobility is severely limited, she will also be continued on enoxaparin. * Will initiate GI prophylaxis with pantoprazole, as long as she is on both dexamethasone and enoxaparin. * Incentive spirometry, as she has a weak cough. * She is to wear her cervical collar at all times, except when showering. She has spinal precautions for the neck with no bending, twisting, or lifting greater than 10 pounds. DISPOSITION: Plan for discharge to sister's home. Will have family training. Needs home DME including Farhan lift, commode (tilt in space if possible), hospital bed. Rental power wheelchair until she obtains her own. Discharge planned for 01/16/2019. FOLLOWUP: She is to follow up with Neurosurgeon Dr. Palmer after discharge. Justification for durable medical equipment. 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 Power wheelchair: * This patient has a mobility limitation that significantly impairs 1 or more mobility related ADLs in the home. * Her functional mobility deficit cannot be resolved with a walker or cane. * Her home is adequate for accessing rooms and maneuvering space and surfaces. * The wheelchair will significantly improve her ability to participate in mobility related ADLs and the patient will use it regularly. * Patient has not expressed and unwillingness to use the wheelchair. * Patient has sufficient physical and mental ability to safely use the wheelchair. Wheelchair accessories: * She needs a manual reclining back on the wheelchair. She is at high risk for development of a pressure ulcer and is unable to perform functional weight shift. * She needs safety belt/pelvic strap. She has weak upper body muscles and upper body instability which requires use for proper positioning. * She needs swing away/retractable arm rests. She most move the component of the way to perform a slide transfer to chair bed Hospital bed: * She needs a semi-electric hospital bed. She requires frequent changes in body position due to the risk of skin breakdown. Farhan lift: * She needs a Farhan lift with commode and standard U shaped sling. * She requires the lift to allow her to discharge to her home with 1 person assist. * She lacks the ability to transfer to her power chair or commode by herself. * Her family is willing and able to assist the patient with the lift. 01/06/19 12:07 01/09/19 13:06 01/10/19 12:50 Subjective: Complains of pain below her right earlobe. It is not very severe unless she lies on it and then it is severe. No fevers or chills, no cough or dyspnea, no head congestion or stuffy nose, no runny nose. Objective: Vital Signs Temp Pulse Resp BP Pulse Ox 37.3 C 85 15 93/62 L 95 01/10/19 06:36 01/10/19 06:36 01/10/19 06:36 01/10/19 06:36 01/10/19 06:36 Laboratory Results 01/02/19 09:45 01/06/19 05:40 01/09/19 01/10/19 01/11/19 05:59 05:59 05:59 Intake Total 650 980 820 Output Total 1450 850 250 Balance -800 130 570 Physical Exam - Physical Exam General Appearance: WD/WN, alert, no apparent distress EENT: TMs normal, No purulent nasal drainage, No rhinorrhea, No pharyngeal erythema Neck: full range of motion, normal inspection, No lymphadenopathy (R), No lymphadenopathy (L) Respiratory: No respiratory distress, No accessory muscle use Skin: normal color, warm/dry Neuro/Psych: motor weakness ICD10 Worksheet Patient Problems: Problems Problem Status Onset Spinal cord injury, cervical region Acute
[2019-01-10] MEDS: ENOXAPARIN 40 MG/0.4 ML SYR SC SCH (15:42)
[2019-01-10] MEDS: BISACODYL 10 MG SUPP PR SCH (15:44)
[2019-01-10 19:51] LABS: PLATELET COUNT 269 10^3/uL (150-400)
[2019-01-10] MEDS: CARBOXYMETHYLCELLULOSE 1% 0.4 ML DROPERETTE EACHEYE SCH (21:07)
[2019-01-11] MEDS: ACETAMINOPHEN 500 MG TAB PO SCH ×3 (06:00→21:05)
[2019-01-11] MEDS: buPROPion 75 MG TAB PO SCH ×2 (08:54→21:05)
[2019-01-11] MEDS: CITALOPRAM 20 MG TAB PO SCH (08:54)
[2019-01-11] MEDS: LIDOCAINE 4%/MENTHOL 1% PATCH TD SCH (09:00)
--- NOTE | 2019-01-11 11:50 | SOAPPROG ---
SOAP Progress Note Assessment/Plan: Assessment: Spinal cord dysfunction, C3 level, MONIE class C, status post C3-T1 laminectomy and fusion on 11/24/2018 for resection of an ependymoma. * Initial functional independence measure is 54 on 12/16/2018; no change as of 12/23; improved to 56 as of 12/28/2018, decline to 47 as of 01/04/2019, improved to 53 as of 01/11/2019. Max assist of 2 for bed mobility and transfers. Close standby assist on a flat surface for seated balance; showing improved trunk control. Grooming hygiene are done with setup and standby assist. Upper body dressing requires moderate assist. Lower body dressing requires total assist but she is able to direct her care. Bathing requires total to maximal assist and bath transfer is done by Farhan to a shower chair. She has trace movement in the lower extremities more so on the left than the right. She has full active range of motion with the upper extremities. * Continue PT and OT to optimize mobility and activities of daily living. * Discussed with Neurosurgeon Dr. Palmer, 01/06/2019. May D/C cervical collar. 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 * Sodium chloride supplements discontinued on 01/04/2019. * Resolved on BMP 01/06/2018. Upper extremity dysesthesias noted on 01/04/2018. MRI brain and C-spine without changes. Pain, below right ear. MRI 6 days ago with no sinusitis and no evidence of abscess in the surgical site. Exam not consistent with otitis. * Pain has developed since discontinuation of cervical collar. Might be due to new use of muscles to support head. * Normal white blood cell count on CBC 2 05/04/2019. Doubt infection. Continue to monitor. Fevers, likely neurogenic. * Labs and CT scan negative for pneumonia, pulmonary embolus, UTI. Normal white blood cell count, normal ESR and CRP. * Blood cultures 12/25 and 12/30/2018 were negative. * Repeat labs 12/30/2018 due to symptoms overnight, with white blood cell count, ESR and CRP not suggestive of infection. * Continue incentive spirometry. Continue to monitor for any symptoms of infection. Neurogenic bowel * Getting daily bisacodyl suppository. Having daily bowel movements. * With liquid stool and abdominal distension, abdominal x-ray 01/11/2019 showed mild constipation. * Stool is liquid so there is no indication for on oral laxative. Change timing of bisacodyl suppository to 1800, after dinner, to take advantage of the gastrocolic reflex. Neurogenic bladder * Not requiring catheterization and has low postvoid residuals. Discontinue bladder scans. Continued scheduled toileting. Weakly positive UA on 01/02/2019; urine culture positive for 2 strains of Escherichia coli, both resistant to Bactrim. Otherwise no signs or symptoms of UTI. Discontinue Bactrim, 01/05/2019. Adjustment disorder with depressed mood. * Initiate citalopram 10 mg q.day starting 12/24/2018. Continue bupropion. 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 Risk for autonomic dysreflexia. She appears to have intact sensation, but she may not have appropriate parasympathetic control. * Blood pressures and symptoms of distress will be monitored, and she will be treated with the autonomic dysreflexia protocol. * Will use nitroglycerin paste on a p.r.n. basis if non-pharmacologic measures are unsuccessful. * Has had no symptoms. Skin ulcer, right buttock, possibly from shear. Resolved. 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 * Valacyclovir started 12/17/2018. Continued 3 days total. Pulmonary.. * Has been assessed by Respiratory therapy. Achieving near normal pressures with incentive spirometry. Continue incentive spirometry. Contracture prevention. * No spasticity at present but will initiate spasticity of management with medications of a develops. * Podus boots while in bed to prevent ankle contractures. Low blood pressure. JB hose, abdominal binder, as needed for orthostatic symptoms. Elevated blood sugars in the hospital, likely due to dexamethasone with possible risk for diabetes mellitus, given her age and body habitus. * Occasional use of insulin initially on the rehabilitation unit. Insulin and blood sugar checks were discontinued as dexamethasone dose has come down. Prophylaxis for postoperative patient with spinal cord injury. She is on a dexamethasone taper, and this will be continued. * As her mobility is severely limited, she will also be continued on enoxaparin. * Will initiate GI prophylaxis with pantoprazole, as long as she is on both dexamethasone and enoxaparin. * Incentive spirometry, as she has a weak cough. * She is to wear her cervical collar at all times, except when showering. She has spinal precautions for the neck with no bending, twisting, or lifting greater than 10 pounds. DISPOSITION: Attended staffing, 15 min. Discussed with case management, dietitian, nursing, PT, OT, COMPANY ACCOUNTANT. Plan for discharge to sister's home. Will have family training. Needs home DME including Farhan lift, commode (tilt in space if possible), hospital bed. Rental power wheelchair until she obtains her own. Discharge planned for 01/16/2019. FOLLOWUP: She is to follow up with Neurosurgeon Dr. Palmer after discharge. Justification for durable medical equipment. 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 Power wheelchair: * This patient has a mobility limitation that significantly impairs 1 or more mobility related ADLs in the home. * Her functional mobility deficit cannot be resolved with a walker or cane. * Her home is adequate for accessing rooms and maneuvering space and surfaces. * The wheelchair will significantly improve her ability to participate in mobility related ADLs and the patient will use it regularly. * Patient has not expressed and unwillingness to use the wheelchair. * Patient has sufficient physical and mental ability to safely use the wheelchair. Wheelchair accessories: * She needs a manual reclining back on the wheelchair. She is at high risk for development of a pressure ulcer and is unable to perform functional weight shift. * She needs safety belt/pelvic strap. She has weak upper body muscles and upper body instability which requires use for proper positioning. * She needs swing away/retractable arm rests. She most move the component of the way to perform a slide transfer to chair bed Hospital bed: * She needs a semi-electric hospital bed. She requires frequent changes in body position due to the risk of skin breakdown. Farhan lift: * She needs a Farhan lift with commode and standard U shaped sling. * She requires the lift to allow her to discharge to her home with 1 person assist. * She lacks the ability to transfer to her power chair or commode by herself. * Her family is willing and able to assist the patient with the lift. 01/11/19 15:39 Subjective: Neck pain responded to a lidocaine patch this morning. Nursing has noted liquid green stool x2 days. Patient and nursing report that response to bisacodyl suppository can take as long as 2 hr. She denies any sense of fecal urgency other than following suppository. She denies abdominal pain. She felt bloating 2 days ago. She denies fever or chills. Objective: Vital Signs Temp Pulse Resp BP Pulse Ox 36.8 C 82 15 90/65 L 95 01/11/19 06:15 01/11/19 08:52 01/11/19 06:15 01/11/19 08:52 01/11/19 08:52 Laboratory Results 01/10/19 19:00 01/06/19 05:40 01/10/19 01/11/19 01/12/19 05:59 05:59 05:59 Intake Total 980 1220 670 Output Total 850 1450 500 Balance 130 -230 170 - Time Spent With Patient Time Spent With Patient: Greater than 35 min floor time today, including more than 50% of time in coordination of care during staffing meeting, and counseling patient. Physical Exam - Physical Exam General Appearance: WD/WN, alert, no apparent distress Respiratory: No respiratory distress, No accessory muscle use Abdomen: normal bowel sounds, non-tender, soft, distended Neuro/Psych: alert, normal mood/affect, oriented x 3, motor weakness ICD10 Worksheet Patient Problems: Problems Problem Status Onset Spinal cord injury, cervical region Acute
[2019-01-11] MEDS: ENOXAPARIN 40 MG/0.4 ML SYR SC SCH (17:53)
[2019-01-11] MEDS: BISACODYL 10 MG SUPP PR SCH (17:55)
[2019-01-11] MEDS: PATCH REMOVAL 1 EA PATCH TD SCH (21:00)
[2019-01-11] MEDS: CARBOXYMETHYLCELLULOSE 1% 0.4 ML DROPERETTE EACHEYE SCH (21:18)
[2019-01-12] MEDS: ACETAMINOPHEN 500 MG TAB PO SCH ×3 (06:25→21:03)
[2019-01-12] MEDS: buPROPion 75 MG TAB PO SCH ×2 (08:00→21:03)
[2019-01-12] MEDS: CITALOPRAM 20 MG TAB PO SCH (08:00)
[2019-01-12] MEDS: LIDOCAINE 4%/MENTHOL 1% PATCH TD SCH (08:01)
--- NOTE | 2019-01-12 14:16 | SOAPPROG ---
SOAP Progress Note Assessment/Plan: Assessment: Spinal cord dysfunction, C3 level, MONIE class C, status post C3-T1 laminectomy and fusion on 11/24/2018 for resection of an ependymoma. * Initial functional independence measure is 54 on 12/16/2018; no change as of 12/23; improved to 56 as of 12/28/2018, decline to 47 as of 01/04/2019, improved to 53 as of 01/11/2019. Max assist of 2 for bed mobility and transfers. Close standby assist on a flat surface for seated balance; showing improved trunk control. Grooming hygiene are done with setup and standby assist. Upper body dressing requires moderate assist. Lower body dressing requires total assist but she is able to direct her care. Bathing requires total to maximal assist and bath transfer is done by Farhan to a shower chair. She has trace movement in the lower extremities more so on the left than the right. She has full active range of motion with the upper extremities. * Continue PT and OT to optimize mobility and activities of daily living. * Discussed with Neurosurgeon Dr. Palmer, 01/06/2019. May D/C cervical collar. 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 * Sodium chloride supplements discontinued on 01/04/2019. * Resolved on BMP 01/06/2018. Upper extremity dysesthesias noted on 01/04/2018. MRI brain and C-spine without changes. Pain, below right ear. MRI 6 days ago with no sinusitis and no evidence of abscess in the surgical site. Exam not consistent with otitis. * Pain has developed since discontinuation of cervical collar. Might be due to new use of muscles to support head. * Normal white blood cell count on CBC 2 05/04/2019. Doubt infection. Continue to monitor. Fevers, likely neurogenic. * Labs and CT scan negative for pneumonia, pulmonary embolus, UTI. Normal white blood cell count, normal ESR and CRP. * Blood cultures 12/25 and 12/30/2018 were negative. * Repeat labs 12/30/2018 due to symptoms overnight, with white blood cell count, ESR and CRP not suggestive of infection. * Continue incentive spirometry. Continue to monitor for any symptoms of infection. Neurogenic bowel * Getting daily bisacodyl suppository. Having daily bowel movements. * With liquid stool and abdominal distension, abdominal x-ray 01/11/2019 showed mild constipation. * Stool is liquid so there is no indication for on oral laxative. Change timing of bisacodyl suppository to 1800, after dinner, to take advantage of the gastrocolic reflex. Neurogenic bladder * Not requiring catheterization and has low postvoid residuals. Discontinue bladder scans. Continued scheduled toileting. Weakly positive UA on 01/02/2019; urine culture positive for 2 strains of Escherichia coli, both resistant to Bactrim. Otherwise no signs or symptoms of UTI. Discontinue Bactrim, 01/05/2019. Adjustment disorder with depressed mood. * Initiate citalopram 10 mg q.day starting 12/24/2018. Continue bupropion. * manager floor is available for counseling. Risk for autonomic dysreflexia. She appears to have intact sensation, but she may not have appropriate parasympathetic control. * Blood pressures and symptoms of distress will be monitored, and she will be treated with the autonomic dysreflexia protocol. * Will use nitroglycerin paste on a p.r.n. basis if non-pharmacologic measures are unsuccessful. * Has had no symptoms. Skin ulcer, right buttock, possibly from shear. Resolved. 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 * Valacyclovir started 12/17/2018. Continued 3 days total. Pulmonary.. * Has been assessed by Respiratory therapy. Achieving near normal pressures with incentive spirometry. Continue incentive spirometry. Contracture prevention. * No spasticity at present but will initiate spasticity of management with medications of a develops. * Podus boots while in bed to prevent ankle contractures. Low blood pressure. JB hose, abdominal binder, as needed for orthostatic symptoms. Elevated blood sugars in the hospital, likely due to dexamethasone with possible risk for diabetes mellitus, given her age and body habitus. * Occasional use of insulin initially on the rehabilitation unit. Insulin and blood sugar checks were discontinued as dexamethasone dose has come down. Prophylaxis for postoperative patient with spinal cord injury. She is on a dexamethasone taper, and this will be continued. * As her mobility is severely limited, she will also be continued on enoxaparin. * Will initiate GI prophylaxis with pantoprazole, as long as she is on both dexamethasone and enoxaparin. * Incentive spirometry, as she has a weak cough. * She is to wear her cervical collar at all times, except when showering. She has spinal precautions for the neck with no bending, twisting, or lifting greater than 10 pounds. DISPOSITION: Attended staffing, 15 min. Discussed with case management, dietitian, nursing, PT, OT, RESIDENTIAL REMODELING SUBCONTRACTOR. Plan for discharge to sister's home. Will have family training. Needs home DME including Farhan lift, commode (tilt in space if possible), hospital bed. Rental power wheelchair until she obtains her own. Discharge planned for 01/16/2019. FOLLOWUP: She is to follow up with Neurosurgeon Dr. Palmer after discharge. Justification for durable medical equipment. 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 Power wheelchair: * This patient has a mobility limitation that significantly impairs 1 or more mobility related ADLs in the home. * Her functional mobility deficit cannot be resolved with a walker or cane. * Her home is adequate for accessing rooms and maneuvering space and surfaces. * The wheelchair will significantly improve her ability to participate in mobility related ADLs and the patient will use it regularly. * Patient has not expressed and unwillingness to use the wheelchair. * Patient has sufficient physical and mental ability to safely use the wheelchair. Wheelchair accessories: * She needs a manual reclining back on the wheelchair. She is at high risk for development of a pressure ulcer and is unable to perform functional weight shift. * She needs safety belt/pelvic strap. She has weak upper body muscles and upper body instability which requires use for proper positioning. * She needs swing away/retractable arm rests. She most move the component of the way to perform a slide transfer to chair bed Hospital bed: * She needs a semi-electric hospital bed. She requires frequent changes in body position due to the risk of skin breakdown. Farhan lift: * She needs a Farhan lift with commode and standard U shaped sling. * She requires the lift to allow her to discharge to her home with 1 person assist. * She lacks the ability to transfer to her power chair or commode by herself. * Her family is willing and able to assist the patient with the lift. 01/12/19 14:14 Subjective: Neck pain is mostly resolved. Otherwise no complaints. Objective: Vital Signs Temp Pulse Resp BP Pulse Ox 36.9 C 77 16 101/69 95 01/12/19 06:50 01/12/19 06:50 01/12/19 06:50 01/12/19 06:50 01/12/19 06:50 Laboratory Results 01/10/19 19:00 01/06/19 05:40 01/11/19 01/12/19 01/13/19 05:59 05:59 05:59 Intake Total 1220 1810 318 Output Total 1450 2050 300 Balance -230 -240 18 Physical Exam - Physical Exam General Appearance: WD/WN, alert, no apparent distress Respiratory: No respiratory distress, No accessory muscle use Skin: normal color, warm/dry Neuro/Psych: alert, normal mood/affect, oriented x 3, motor weakness ICD10 Worksheet Patient Problems: Problems Problem Status Onset Spinal cord injury, cervical region Acute
[2019-01-12] MEDS: ENOXAPARIN 40 MG/0.4 ML SYR SC SCH (14:32)
[2019-01-12] MEDS: BISACODYL 10 MG SUPP PR SCH (17:40)
[2019-01-12] MEDS: CARBOXYMETHYLCELLULOSE 1% 0.4 ML DROPERETTE EACHEYE SCH (21:03)
[2019-01-13] MEDS: PATCH REMOVAL 1 EA PATCH TD SCH ×2 (01:59→21:23)
[2019-01-13] MEDS: ACETAMINOPHEN 500 MG TAB PO SCH ×3 (06:37→21:23)
[2019-01-13] MEDS: CITALOPRAM 20 MG TAB PO SCH (08:03)
[2019-01-13] MEDS: buPROPion 75 MG TAB PO SCH ×2 (08:03→21:23)
[2019-01-13] MEDS: LIDOCAINE 4%/MENTHOL 1% PATCH TD SCH (09:07)
--- NOTE | 2019-01-13 10:23 | SOAPPROG ---
SOAP Progress Note Assessment/Plan: Assessment: Spinal cord dysfunction, C3 level, MONIE class C, status post C3-T1 laminectomy and fusion on 11/24/2018 for resection of an ependymoma. * Initial functional independence measure is 54 on 12/16/2018; no change as of 12/23; improved to 56 as of 12/28/2018, decline to 47 as of 01/04/2019, improved to 53 as of 01/11/2019. Max assist of 2 for bed mobility and transfers. Close standby assist on a flat surface for seated balance; showing improved trunk control. Grooming hygiene are done with setup and standby assist. Upper body dressing requires moderate assist. Lower body dressing requires total assist but she is able to direct her care. Bathing requires total to maximal assist and bath transfer is done by Farhan to a shower chair. She has trace movement in the lower extremities more so on the left than the right. She has full active range of motion with the upper extremities. * Continue PT and OT to optimize mobility and activities of daily living. * Discussed with Neurosurgeon Dr. Palmer, 01/06/2019. D/C'd cervical collar. Neurogenic bowel * Getting daily bisacodyl suppository. Having daily bowel movements. * With liquid stool and abdominal distension, abdominal x-ray 01/11/2019 showed mild constipation. * Stool is liquid so there is no indication for on oral laxative. Change timing of bisacodyl suppository to 1800, after dinner, to take advantage of the gastrocolic reflex. 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 * Sodium chloride supplements discontinued on 01/04/2019. * Resolved on BMP 01/06/2018. Pain, below right ear. MRI 6 days ago with no sinusitis and no evidence of abscess in the surgical site. Exam not consistent with otitis. * Pain has developed since discontinuation of cervical collar. Might be due to new use of muscles to support head. * Normal white blood cell count on CBC 2 05/04/2019. Doubt infection. Continue to monitor. Fevers, likely neurogenic. * Labs and CT scan negative for pneumonia, pulmonary embolus, UTI. Normal white blood cell count, normal ESR and CRP. * Blood cultures 12/25 and 12/30/2018 were negative. * Repeat labs 12/30/2018 due to symptoms overnight, with white blood cell count, ESR and CRP not suggestive of infection. * Continue incentive spirometry. Continue to monitor for any symptoms of infection. Neurogenic bladder * Not requiring catheterization and has low postvoid residuals. Discontinue bladder scans. Continued scheduled toileting. Upper extremity dysesthesias noted on 01/04/2018. MRI brain and C-spine without changes. Weakly positive UA on 01/02/2019; urine culture positive for 2 strains of Escherichia coli, both resistant to Bactrim. Otherwise no signs or symptoms of UTI. Discontinue Bactrim, 01/05/2019. Adjustment disorder with depressed mood. * Initiate citalopram 10 mg q.day starting 12/24/2018. Continue bupropion. * manager export is available for counseling. Risk for autonomic dysreflexia. She appears to have intact sensation, but she may not have appropriate parasympathetic control. * Blood pressures and symptoms of distress will be monitored, and she will be treated with the autonomic dysreflexia protocol. * Will use nitroglycerin paste on a p.r.n. basis if non-pharmacologic measures are unsuccessful. * Has had no symptoms. Skin ulcer, right buttock, possibly from shear. Resolved. 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 * Valacyclovir started 12/17/2018. Continued 3 days total. Pulmonary.. * Has been assessed by Respiratory therapy. Achieving near normal pressures with incentive spirometry. Continue incentive spirometry. Contracture prevention. * No spasticity at present but will initiate spasticity of management with medications of a develops. * Podus boots while in bed to prevent ankle contractures. Low blood pressure. JB hose, abdominal binder, as needed for orthostatic symptoms. Elevated blood sugars in the hospital, likely due to dexamethasone with possible risk for diabetes mellitus, given her age and body habitus. * Occasional use of insulin initially on the rehabilitation unit. Insulin and blood sugar checks were discontinued as dexamethasone dose has come down. Prophylaxis for postoperative patient with spinal cord injury. She is on a dexamethasone taper, and this will be continued. * As her mobility is severely limited, she will also be continued on enoxaparin. * Will initiate GI prophylaxis with pantoprazole, as long as she is on both dexamethasone and enoxaparin. * Incentive spirometry, as she has a weak cough. * She is to wear her cervical collar at all times, except when showering. She has spinal precautions for the neck with no bending, twisting, or lifting greater than 10 pounds. DISPOSITION: Plan for discharge to sister's home. Will have family training. Needs home DME including Farhan lift, commode (tilt in space if possible), hospital bed. Rental power wheelchair until she obtains her own. Discharge planned for 01/16/2019 - 01/20/2019. FOLLOWUP: She is to follow up with Neurosurgeon Dr. Palmer after discharge. Justification for durable medical equipment. 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 Power wheelchair: * This patient has a mobility limitation that significantly impairs 1 or more mobility related ADLs in the home. * Her functional mobility deficit cannot be resolved with a walker or cane. * Her home is adequate for accessing rooms and maneuvering space and surfaces. * The wheelchair will significantly improve her ability to participate in mobility related ADLs and the patient will use it regularly. * Patient has not expressed and unwillingness to use the wheelchair. * Patient has sufficient physical and mental ability to safely use the wheelchair. Wheelchair accessories: * She needs a manual reclining back on the wheelchair. She is at high risk for development of a pressure ulcer and is unable to perform functional weight shift. * She needs safety belt/pelvic strap. She has weak upper body muscles and upper body instability which requires use for proper positioning. * She needs swing away/retractable arm rests. She most move the component of the way to perform a slide transfer to chair bed Hospital bed: * She needs a semi-electric hospital bed. She requires frequent changes in body position due to the risk of skin breakdown. Farhan lift: * She needs a Farhan lift with commode and standard U shaped sling. * She requires the lift to allow her to discharge to her home with 1 person assist. * She lacks the ability to transfer to her power chair or commode by herself. * Her family is willing and able to assist the patient with the lift. 01/13/19 10:22 Subjective: No complaints. Slept well. Not in pain. No fevers or chills. Objective: Vital Signs Temp Pulse Resp BP Pulse Ox 36.9 C 87 16 99/70 L 96 01/13/19 06:38 01/13/19 06:38 01/12/19 20:00 01/13/19 06:38 01/13/19 06:38 Laboratory Results 01/10/19 19:00 01/06/19 05:40 01/12/19 01/13/19 01/14/19 05:59 05:59 05:59 Intake Total 1810 758 Output Total 0972 5707 350 Balance -240 -542 -350 Physical Exam - Physical Exam General Appearance: WD/WN, alert, no apparent distress Respiratory: No respiratory distress, No accessory muscle use Skin: normal color, warm/dry Neuro/Psych: alert, normal mood/affect, oriented x 3, motor weakness ICD10 Worksheet Patient Problems: Problems Problem Status Onset Spinal cord injury, cervical region Acute
[2019-01-13] MEDS: ENOXAPARIN 40 MG/0.4 ML SYR SC SCH (11:47)
[2019-01-13] MEDS: BISACODYL 10 MG SUPP PR SCH (18:26)
[2019-01-13] MEDS: CARBOXYMETHYLCELLULOSE 1% 0.4 ML DROPERETTE EACHEYE SCH (21:23)
[2019-01-14] MEDS: ACETAMINOPHEN 500 MG TAB PO SCH ×3 (06:22→21:29)
[2019-01-14] MEDS: buPROPion 75 MG TAB PO SCH ×2 (08:23→21:29)
[2019-01-14] MEDS: CITALOPRAM 20 MG TAB PO SCH (08:24)
[2019-01-14] MEDS: LIDOCAINE 4%/MENTHOL 1% PATCH TD SCH (08:34)
[2019-01-14] MEDS: ENOXAPARIN 40 MG/0.4 ML SYR SC SCH (10:23)
--- NOTE | 2019-01-14 12:02 | HOSPPROG ---
Hospitalist Progress Note Assessment/Plan: Spinal cord dysfunction, C3 level, MONIE class C, status post C3-T1 laminectomy and fusion on 11/24/2018 for resection of an ependymoma. * Initial functional independence measure is 54 on 12/16/2018; no change as of 12/23; improved to 56 as of 12/28/2018, decline to 47 as of 01/04/2019, improved to 53 as of 01/11/2019. Max assist of 2 for bed mobility and transfers. Close standby assist on a flat surface for seated balance; showing improved trunk control. Grooming hygiene are done with setup and standby assist. Upper body dressing requires moderate assist. Lower body dressing requires total assist but she is able to direct her care. Bathing requires total to maximal assist and bath transfer is done by Farhan to a shower chair. She has trace movement in the lower extremities more so on the left than the right. She has full active range of motion with the upper extremities. * Continue PT and OT to optimize mobility and activities of daily living. Neurogenic bowel * Getting daily bisacodyl suppository. Having daily bowel movements. * With liquid stool and abdominal distension, abdominal x-ray 01/11/2019 showed mild constipation. * Stool is liquid so there is no indication for on oral laxative. Change timing of bisacodyl suppository to 1800, after dinner, to take advantage of the gastrocolic reflex. 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 * Sodium chloride supplements discontinued on 01/04/2019. * Resolved on BMP 01/06/2018. Pain, below right ear. MRI 6 days ago with no sinusitis and no evidence of abscess in the surgical site. Exam not consistent with otitis. * Pain has developed since discontinuation of cervical collar. Might be due to new use of muscles to support head. * Normal white blood cell count on CBC 2 05/04/2019. Doubt infection. Continue to monitor. Fevers, likely neurogenic. * Labs and CT scan negative for pneumonia, pulmonary embolus, UTI. Normal white blood cell count, normal ESR and CRP. * Blood cultures 12/25 and 12/30/2018 were negative. * Repeat labs 12/30/2018 due to symptoms overnight, with white blood cell count, ESR and CRP not suggestive of infection. * Continue incentive spirometry. Continue to monitor for any symptoms of infection. Neurogenic bladder * Not requiring catheterization and has low postvoid residuals. Discontinue bladder scans. Continued scheduled toileting. Upper extremity dysesthesias noted on 01/04/2018. MRI brain and C-spine without changes. Weakly positive UA on 01/02/2019; urine culture positive for 2 strains of Escherichia coli, both resistant to Bactrim. Otherwise no signs or symptoms of UTI. Discontinue Bactrim, 01/05/2019. Adjustment disorder with depressed mood. * Initiate citalopram 10 mg q.day starting 12/24/2018. Continue bupropion. * air traffic control manager is available for counseling. Risk for autonomic dysreflexia. She appears to have intact sensation, but she may not have appropriate parasympathetic control. * Blood pressures and symptoms of distress will be monitored, and she will be treated with the autonomic dysreflexia protocol. * Will use nitroglycerin paste on a p.r.n. basis if non-pharmacologic measures are unsuccessful. * Has had no symptoms. Skin ulcer, right buttock, possibly from shear. Resolved. 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 * Valacyclovir started 12/17/2018. Continued 3 days total. Pulmonary.. * Has been assessed by Respiratory therapy. Achieving near normal pressures with incentive spirometry. Continue incentive spirometry. Contracture prevention. * No spasticity at present but will initiate spasticity of management with medications of a develops. * Podus boots while in bed to prevent ankle contractures. Low blood pressure. JB hose, abdominal binder, as needed for orthostatic symptoms. Elevated blood sugars in the hospital, likely due to dexamethasone with possible risk for diabetes mellitus, given her age and body habitus. * Occasional use of insulin initially on the rehabilitation unit. Insulin and blood sugar checks were discontinued as dexamethasone dose has come down. Prophylaxis for postoperative patient with spinal cord injury. She is on a dexamethasone taper, and this will be continued. * As her mobility is severely limited, she will also be continued on enoxaparin. * Will initiate GI prophylaxis with pantoprazole, as long as she is on both dexamethasone and enoxaparin. * Incentive spirometry, as she has a weak cough. * She is to wear her cervical collar at all times, except when showering. She has spinal precautions for the neck with no bending, twisting, or lifting greater than 10 pounds. DISPOSITION: Plan for discharge to sister's home. Will have family training. Needs home DME including Farhan lift, commode (tilt in space if possible), hospital bed. Rental power wheelchair until she obtains her own. Discharge planned for 01/16/2019 - 01/20/2019. FOLLOWUP: She is to follow up with Neurosurgeon Dr. Palmer after discharge. Subjective: no new complaints. still some upper neck pain 12/25 Objective: Vital Signs Temp Pulse Resp BP Pulse Ox 37.1 C 89 16 104/62 96 01/14/19 06:26 01/14/19 06:26 01/14/19 06:26 01/14/19 06:26 01/14/19 06:26 Laboratory Results 01/10/19 19:00 01/06/19 05:40 01/13/19 01/14/19 01/15/19 05:59 05:59 05:59 Intake Total 758 1340 257 Output Total 1300 1800 100 Balance -542 -460 157 - Physical Exam Constitutional: no apparent distress, appears nourished, not in pain Eyes: anicteric sclera, EOMI Ears, Nose, Mouth, Throat: moist mucous membranes Cardiovascular: regular rate and rhythym Respiratory: no respiratory distress, clear to auscultation Gastrointestinal: normoactive bowel sounds, soft, non-tender abdomen, no palpable masses Skin: warm Neurologic: AAOx3 Psychiatric: interacting appropriately, not anxious, not encephalopathic, thought process linear ICD10 Worksheet Patient Problems: Problems Problem Status Onset Spinal cord injury, cervical region Acute
[2019-01-14] MEDS: BISACODYL 10 MG SUPP PR SCH (17:43)
[2019-01-14] MEDS: CARBOXYMETHYLCELLULOSE 1% 0.4 ML DROPERETTE EACHEYE SCH (21:29)
[2019-01-15] MEDS: PATCH REMOVAL 1 EA PATCH TD SCH ×2 (04:04→20:30)
[2019-01-15] MEDS: ACETAMINOPHEN 500 MG TAB PO SCH ×4 (06:23→20:25)
[2019-01-15] MEDS: LIDOCAINE 4%/MENTHOL 1% PATCH TD SCH (07:46)
[2019-01-15] MEDS: buPROPion 75 MG TAB PO SCH ×2 (08:04→20:26)
[2019-01-15] MEDS: CITALOPRAM 20 MG TAB PO SCH (08:05)
[2019-01-15] MEDS: ENOXAPARIN 40 MG/0.4 ML SYR SC SCH (11:50)
[2019-01-15] MEDS ORDERED: ACETAMINOPHEN 500 MG TAB PO SCH (14:00)
--- NOTE | 2019-01-15 15:32 | HOSPPROG ---
Hospitalist Progress Note Assessment/Plan: Spinal cord dysfunction, C3 level, MONIE class C, status post C3-T1 laminectomy and fusion on 11/24/2018 for resection of an ependymoma. * Initial functional independence measure is 54 on 12/16/2018; no change as of 12/23; improved to 56 as of 12/28/2018, decline to 47 as of 01/04/2019, improved to 53 as of 01/11/2019. Max assist of 2 for bed mobility and transfers. Close standby assist on a flat surface for seated balance; showing improved trunk control. Grooming hygiene are done with setup and standby assist. Upper body dressing requires moderate assist. Lower body dressing requires total assist but she is able to direct her care. Bathing requires total to maximal assist and bath transfer is done by Farhan to a shower chair. She has trace movement in the lower extremities more so on the left than the right. She has full active range of motion with the upper extremities. * Continue PT and OT to optimize mobility and activities of daily living. Neurogenic bowel * Getting daily bisacodyl suppository. Having daily bowel movements. * With liquid stool and abdominal distension, abdominal x-ray 01/11/2019 showed mild constipation. * Stool is liquid so there is no indication for on oral laxative. Change timing of bisacodyl suppository to 1800, after dinner, to take advantage of the gastrocolic reflex. 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 * Sodium chloride supplements discontinued on 01/04/2019. * Resolved on BMP 01/06/2018. Pain, below right ear. MRI 6 days ago with no sinusitis and no evidence of abscess in the surgical site. Exam not consistent with otitis. * Pain has developed since discontinuation of cervical collar. Might be due to new use of muscles to support head. * Normal white blood cell count on CBC 2 05/04/2019. Doubt infection. Continue to monitor. Fevers, likely neurogenic. * Labs and CT scan negative for pneumonia, pulmonary embolus, UTI. Normal white blood cell count, normal ESR and CRP. * Blood cultures 12/25 and 12/30/2018 were negative. * Repeat labs 12/30/2018 due to symptoms overnight, with white blood cell count, ESR and CRP not suggestive of infection. * Continue incentive spirometry. Continue to monitor for any symptoms of infection. Neurogenic bladder * Not requiring catheterization and has low postvoid residuals. Discontinue bladder scans. Continued scheduled toileting. Upper extremity dysesthesias noted on 01/04/2018. MRI brain and C-spine without changes. Weakly positive UA on 01/02/2019; urine culture positive for 2 strains of Escherichia coli, both resistant to Bactrim. Otherwise no signs or symptoms of UTI. Discontinue Bactrim, 01/05/2019. * FOUL URINE PER RN 01/15/19- WILL HOLD OFF A LITTLE LONGER ON UA. Adjustment disorder with depressed mood. * Initiate citalopram 10 mg q.day starting 12/24/2018. Continue bupropion. * power plant manager is available for counseling. Risk for autonomic dysreflexia. She appears to have intact sensation, but she may not have appropriate parasympathetic control. * Blood pressures and symptoms of distress will be monitored, and she will be treated with the autonomic dysreflexia protocol. * Will use nitroglycerin paste on a p.r.n. basis if non-pharmacologic measures are unsuccessful. * Has had no symptoms. Skin ulcer, right buttock, possibly from shear. Resolved. 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 * Valacyclovir started 12/17/2018. Continued 3 days total. Pulmonary.. * Has been assessed by Respiratory therapy. Achieving near normal pressures with incentive spirometry. Continue incentive spirometry. Contracture prevention. * No spasticity at present but will initiate spasticity of management with medications of a develops. * Podus boots while in bed to prevent ankle contractures. Low blood pressure. JB hose, abdominal binder, as needed for orthostatic symptoms. Elevated blood sugars in the hospital, likely due to dexamethasone with possible risk for diabetes mellitus, given her age and body habitus. * Occasional use of insulin initially on the rehabilitation unit. Insulin and blood sugar checks were discontinued as dexamethasone dose has come down. Prophylaxis for postoperative patient with spinal cord injury. She is on a dexamethasone taper, and this will be continued. * As her mobility is severely limited, she will also be continued on enoxaparin. * Will initiate GI prophylaxis with pantoprazole, as long as she is on both dexamethasone and enoxaparin. * Incentive spirometry, as she has a weak cough. * She is to wear her cervical collar at all times, except when showering. She has spinal precautions for the neck with no bending, twisting, or lifting greater than 10 pounds. DISPOSITION: Plan for discharge to sister's home. Will have family training. Needs home DME including Farhan lift, commode (tilt in space if possible), hospital bed. Rental power wheelchair until she obtains her own. Discharge planned for 01/16/2019 - 01/20/2019. FOLLOWUP: She is to follow up with Neurosurgeon Dr. Palmer after discharge. Subjective: no new complaints. some foul smelling urine per RN Objective: Vital Signs Temp Pulse Resp BP Pulse Ox 36.5 C 78 15 109/73 97 01/15/19 06:41 01/15/19 06:41 01/15/19 06:41 01/15/19 06:41 01/15/19 06:41 Laboratory Results 01/10/19 19:00 01/06/19 05:40 01/14/19 01/15/19 01/16/19 05:59 05:59 05:59 Intake Total 6917 889 9973 Output Total 1800 850 800 Balance -460 147 407 - Physical Exam Constitutional: no apparent distress, appears nourished, not in pain Eyes: anicteric sclera, EOMI Ears, Nose, Mouth, Throat: moist mucous membranes Cardiovascular: regular rate and rhythym Respiratory: no respiratory distress Gastrointestinal: normoactive bowel sounds, soft, non-tender abdomen, no palpable masses Skin: warm Neurologic: AAOx3 ICD10 Worksheet Patient Problems: Problems Problem Status Onset Spinal cord injury, cervical region Acute
[2019-01-15] MEDS: BISACODYL 10 MG SUPP PR SCH (17:59)
[2019-01-15] MEDS: CARBOXYMETHYLCELLULOSE 1% 0.4 ML DROPERETTE EACHEYE SCH (20:26)
[2019-01-16] MEDS: ACETAMINOPHEN 500 MG TAB PO SCH ×3 (05:25→20:35)
[2019-01-16] MEDS: LIDOCAINE 4%/MENTHOL 1% PATCH TD SCH (08:29)
[2019-01-16] MEDS: CITALOPRAM 20 MG TAB PO SCH (08:30)
[2019-01-16] MEDS: buPROPion 75 MG TAB PO SCH ×2 (08:34→21:38)
--- NOTE | 2019-01-16 11:00 | SOAPPROG ---
SOAP Progress Note Assessment/Plan: Assessment: Spinal cord dysfunction, C3 level, MONIE class C, status post C3-T1 laminectomy and fusion on 11/24/2018 for resection of an ependymoma. * Initial functional independence measure is 54 on 12/16/2018; no change as of 12/23; improved to 56 as of 12/28/2018, decline to 47 as of 01/04/2019, improved to 53 as of 01/11/2019. Max assist of 2 for bed mobility and transfers. Close standby assist on a flat surface for seated balance; showing improved trunk control. Grooming hygiene are done with setup and standby assist. Upper body dressing requires moderate assist. Lower body dressing requires total assist but she is able to direct her care. Bathing requires total to maximal assist and bath transfer is done by Farhan to a shower chair. She has trace movement in the lower extremities more so on the left than the right. She has full active range of motion with the upper extremities. * Continue PT and OT to optimize mobility and activities of daily living. * Discussed with Neurosurgeon Dr. Palmer, 01/06/2019. D/C'd cervical collar. Neurogenic bowel * Getting daily bisacodyl suppository. Having daily bowel movements. * With liquid stool and abdominal distension, abdominal x-ray 01/11/2019 showed mild constipation. * Stool is liquid so there is no indication for on oral laxative. Change timing of bisacodyl suppository to 1800, after dinner, to take advantage of the gastrocolic reflex. 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 * Sodium chloride supplements discontinued on 01/04/2019. * Resolved on BMP 01/06/2018. Pain, below right ear. MRI 6 days ago with no sinusitis and no evidence of abscess in the surgical site. Exam not consistent with otitis. * Pain has developed since discontinuation of cervical collar. Might be due to new use of muscles to support head. * Normal white blood cell count on CBC 2 05/04/2019. Doubt infection. Continue to monitor. Fevers, likely neurogenic. * Labs and CT scan negative for pneumonia, pulmonary embolus, UTI. Normal white blood cell count, normal ESR and CRP. * Blood cultures 12/25 and 12/30/2018 were negative. * Repeat labs 12/30/2018 due to symptoms overnight, with white blood cell count, ESR and CRP not suggestive of infection. * Continue incentive spirometry. Continue to monitor for any symptoms of infection. Neurogenic bladder * Not requiring catheterization and has low postvoid residuals. Discontinue bladder scans. Continued scheduled toileting. Upper extremity dysesthesias noted on 01/04/2018. MRI brain and C-spine without changes. Weakly positive UA on 01/02/2019; urine culture positive for 2 strains of Escherichia coli, both resistant to Bactrim. Otherwise no signs or symptoms of UTI. Discontinue Bactrim, 01/05/2019. Adjustment disorder with depressed mood. * Initiate citalopram 10 mg q.day starting 12/24/2018. Continue bupropion. * digital learning platforms manager is available for counseling. Risk for autonomic dysreflexia. She appears to have intact sensation, but she may not have appropriate parasympathetic control. * Blood pressures and symptoms of distress will be monitored, and she will be treated with the autonomic dysreflexia protocol. * Will use nitroglycerin paste on a p.r.n. basis if non-pharmacologic measures are unsuccessful. * Has had no symptoms. Skin ulcer, right buttock, possibly from shear. Resolved. 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 * Valacyclovir started 12/17/2018. Continued 3 days total. Pulmonary.. * Has been assessed by Respiratory therapy. Achieving near normal pressures with incentive spirometry. Continue incentive spirometry. Contracture prevention. * No spasticity at present but will initiate spasticity of management with medications of a develops. * Podus boots while in bed to prevent ankle contractures. Low blood pressure. JB hose, abdominal binder, as needed for orthostatic symptoms. Elevated blood sugars in the hospital, likely due to dexamethasone with possible risk for diabetes mellitus, given her age and body habitus. * Occasional use of insulin initially on the rehabilitation unit. Insulin and blood sugar checks were discontinued as dexamethasone dose has come down. Prophylaxis for postoperative patient with spinal cord injury. She is on a dexamethasone taper, and this will be continued. * As her mobility is severely limited, she will also be continued on enoxaparin. * Will initiate GI prophylaxis with pantoprazole, as long as she is on both dexamethasone and enoxaparin. * Incentive spirometry, as she has a weak cough. * She is to wear her cervical collar at all times, except when showering. She has spinal precautions for the neck with no bending, twisting, or lifting greater than 10 pounds. DISPOSITION: Plan for discharge to sister's home. Will have family training. Needs home DME including Farhan lift, commode (tilt in space if possible), hospital bed. Rental power wheelchair until she obtains her own. Discharge planned for 01/20/2019. FOLLOWUP: She is to follow up with Neurosurgeon Dr. Palmer after discharge. Justification for durable medical equipment. 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 Power wheelchair: * This patient has a mobility limitation that significantly impairs 1 or more mobility related ADLs in the home. * Her functional mobility deficit cannot be resolved with a walker or cane. * Her home is adequate for accessing rooms and maneuvering space and surfaces. * The wheelchair will significantly improve her ability to participate in mobility related ADLs and the patient will use it regularly. * Patient has not expressed and unwillingness to use the wheelchair. * Patient has sufficient physical and mental ability to safely use the wheelchair. Wheelchair accessories: * She needs a manual reclining back on the wheelchair. She is at high risk for development of a pressure ulcer and is unable to perform functional weight shift. * She needs safety belt/pelvic strap. She has weak upper body muscles and upper body instability which requires use for proper positioning. * She needs swing away/retractable arm rests. She most move the component of the way to perform a slide transfer to chair bed Hospital bed: * She needs a semi-electric hospital bed. She requires frequent changes in body position due to the risk of skin breakdown. Farhan lift: * She needs a Farhan lift with commode and standard U shaped sling. * She requires the lift to allow her to discharge to her home with 1 person assist. * She lacks the ability to transfer to her power chair or commode by herself. * Her family is willing and able to assist the patient with the lift. 01/16/19 11:42 Subjective: No complaints. She thinks the lidocaine patches on her neck help with pain. Objective: Vital Signs Temp Pulse Resp BP Pulse Ox 36.9 C 78 16 106/67 97 01/16/19 06:04 01/16/19 06:04 01/16/19 06:04 01/16/19 06:04 01/16/19 06:04 Laboratory Results 01/10/19 19:00 01/06/19 05:40 01/15/19 01/16/19 01/17/19 05:59 05:59 05:59 Intake Total 997 1967 Output Total 850 2150 Balance 147 -183 Physical Exam - Physical Exam General Appearance: WD/WN, alert, no apparent distress Respiratory: No respiratory distress, No accessory muscle use Skin: normal color, warm/dry Neuro/Psych: alert, normal mood/affect, oriented x 3, motor weakness ICD10 Worksheet Patient Problems: Problems Problem Status Onset Spinal cord injury, cervical region Acute
[2019-01-16] MEDS: ENOXAPARIN 40 MG/0.4 ML SYR SC SCH (12:59)
[2019-01-16] MEDS: BISACODYL 10 MG SUPP PR SCH (18:19)
[2019-01-16] MEDS: CARBOXYMETHYLCELLULOSE 1% 0.4 ML DROPERETTE EACHEYE SCH (20:35)
[2019-01-17] MEDS: PATCH REMOVAL 1 EA PATCH TD SCH ×2 (05:35→23:25)
[2019-01-17] MEDS: ACETAMINOPHEN 500 MG TAB PO SCH (05:54)
[2019-01-17] MEDS: LIDOCAINE 4%/MENTHOL 1% PATCH TD SCH (08:47)
[2019-01-17] MEDS: CITALOPRAM 20 MG TAB PO SCH (08:47)
[2019-01-17] MEDS: buPROPion 75 MG TAB PO SCH ×2 (08:47→14:05)
[2019-01-17] MEDS: ENOXAPARIN 40 MG/0.4 ML SYR SC SCH (11:45)
--- NOTE | 2019-01-17 13:29 | SOAPPROG ---
SOAP Progress Note Assessment/Plan: Assessment: Spinal cord dysfunction, C3 level, MONIE class C, status post C3-T1 laminectomy and fusion on 11/24/2018 for resection of an ependymoma. * Initial functional independence measure is 54 on 12/16/2018; no change as of 12/23; improved to 56 as of 12/28/2018, decline to 47 as of 01/04/2019, improved to 53 as of 01/11/2019. Max assist of 2 for bed mobility and transfers. Close standby assist on a flat surface for seated balance; showing improved trunk control. Grooming hygiene are done with setup and standby assist. Upper body dressing requires moderate assist. Lower body dressing requires total assist but she is able to direct her care. Bathing requires total to maximal assist and bath transfer is done by Farhan to a shower chair. She has trace movement in the lower extremities more so on the left than the right. She has full active range of motion with the upper extremities. * Continue PT and OT to optimize mobility and activities of daily living. * Discussed with Neurosurgeon Dr. Palmer, 01/06/2019. D/C'd cervical collar. Neurogenic bowel * Getting daily bisacodyl suppository. Having daily bowel movements. * With liquid stool and abdominal distension, abdominal x-ray 01/11/2019 showed mild constipation. * There is no indication for on oral laxative. Changed timing of bisacodyl suppository to 1800, after dinner, to take advantage of the gastrocolic reflex. 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 * Sodium chloride supplements discontinued on 01/04/2019. * Resolved on BMP 01/06/2018. Pain, below right ear. MRI 6 days ago with no sinusitis and no evidence of abscess in the surgical site. Exam not consistent with otitis. * Pain has developed since discontinuation of cervical collar. Might be due to new use of muscles to support head. * Normal white blood cell count on CBC 2 05/04/2019. Doubt infection. Continue to monitor. * Pain is improved. Continue lidocaine patches. Change acetaminophen to three times daily p.r.n. starting 01/17/2019. Fevers, likely neurogenic. * Labs and CT scan negative for pneumonia, pulmonary embolus, UTI. Normal white blood cell count, normal ESR and CRP. * Blood cultures 12/25 and 12/30/2018 were negative. * Repeat labs 12/30/2018 due to symptoms overnight, with white blood cell count, ESR and CRP not suggestive of infection. * Continue incentive spirometry. Continue to monitor for any symptoms of infection. Neurogenic bladder * Not requiring catheterization and has low postvoid residuals. Discontinue bladder scans. Continued scheduled toileting. Upper extremity dysesthesias noted on 01/04/2018. MRI brain and C-spine without changes. Weakly positive UA on 01/02/2019; urine culture positive for 2 strains of Escherichia coli, both resistant to Bactrim. Otherwise no signs or symptoms of UTI. Discontinue Bactrim, 01/05/2019. Adjustment disorder with depressed mood. * Initiate citalopram 10 mg q.day starting 12/24/2018. Continue bupropion. * media relations manager is available for counseling. Risk for autonomic dysreflexia. She appears to have intact sensation, but she may not have appropriate parasympathetic control. * Blood pressures and symptoms of distress will be monitored, and she will be treated with the autonomic dysreflexia protocol. * Will use nitroglycerin paste on a p.r.n. basis if non-pharmacologic measures are unsuccessful. * Has had no symptoms. Skin ulcer, right buttock, possibly from shear. Resolved. 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 * Valacyclovir started 12/17/2018. Continued 3 days total. Pulmonary.. * Has been assessed by Respiratory therapy. Achieving near normal pressures with incentive spirometry. Continue incentive spirometry. Contracture prevention. * No spasticity at present but will initiate spasticity of management with medications of a develops. * Podus boots while in bed to prevent ankle contractures. Low blood pressure. JB hose, abdominal binder, as needed for orthostatic symptoms. Elevated blood sugars in the hospital, likely due to dexamethasone with possible risk for diabetes mellitus, given her age and body habitus. * Occasional use of insulin initially on the rehabilitation unit. Insulin and blood sugar checks were discontinued as dexamethasone dose has come down. Prophylaxis for postoperative patient with spinal cord injury. She is on a dexamethasone taper, and this will be continued. * As her mobility is severely limited, she will also be continued on enoxaparin. * Will initiate GI prophylaxis with pantoprazole, as long as she is on both dexamethasone and enoxaparin. * Incentive spirometry, as she has a weak cough. * She is to wear her cervical collar at all times, except when showering. She has spinal precautions for the neck with no bending, twisting, or lifting greater than 10 pounds. DISPOSITION: Plan for discharge to sister's home. Will have family training. Needs home DME including Farhan lift, commode (tilt in space if possible), hospital bed. Rental power wheelchair until she obtains her own. Discharge planned for . FOLLOWUP: She is to follow up with Neurosurgeon Dr. Palmer after discharge. Justification for durable medical equipment. 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 Power wheelchair: * This patient has a mobility limitation that significantly impairs 1 or more mobility related ADLs in the home. * Her functional mobility deficit cannot be resolved with a walker or cane. * Her home is adequate for accessing rooms and maneuvering space and surfaces. * The wheelchair will significantly improve her ability to participate in mobility related ADLs and the patient will use it regularly. * Patient has not expressed and unwillingness to use the wheelchair. * Patient has sufficient physical and mental ability to safely use the wheelchair. Wheelchair accessories: * She needs a manual reclining back on the wheelchair. She is at high risk for development of a pressure ulcer and is unable to perform functional weight shift. * She needs safety belt/pelvic strap. She has weak upper body muscles and upper body instability which requires use for proper positioning. * She needs swing away/retractable arm rests. She most move the component of the way to perform a slide transfer to chair bed Hospital bed: * She needs a semi-electric hospital bed. She requires frequent changes in body position due to the risk of skin breakdown. Farhan lift: * She needs a Farhan lift with commode and standard U shaped sling. * She requires the lift to allow her to discharge to her home with 1 person assist. * She lacks the ability to transfer to her power chair or commode by herself. * Her family is willing and able to assist the patient with the lift. 01/16/19 11:42 01/17/19 13:27 Subjective: No complaints. Pain is adequately controlled. She has some pain in her neck. PT notes increased lower extremity tone and ankle clonus. Objective: Vital Signs Temp Pulse Resp BP Pulse Ox 36.9 C 80 18 96/59 L 97 01/17/19 05:54 01/17/19 05:54 01/17/19 05:54 01/17/19 05:54 01/17/19 05:54 Laboratory Results 01/10/19 19:00 01/06/19 05:40 01/16/19 01/17/19 01/18/19 05:59 05:59 05:59 Intake Total 1967 900 240 Output Total 2150 1250 300 Balance -183 -350 -60 Physical Exam - Physical Exam General Appearance: WD/WN, alert, no apparent distress Respiratory: No respiratory distress, No accessory muscle use Skin: normal color, warm/dry Neuro/Psych: alert, normal mood/affect, other (Multiple beats of ankle clonus bilaterally) ICD10 Worksheet Patient Problems: Problems Problem Status Onset Spinal cord injury, cervical region Acute
[2019-01-17] MEDS: BISACODYL 10 MG SUPP PR SCH (18:25)
[2019-01-17] MEDS: ACETAMINOPHEN 500 MG TAB PO PRN (19:09)
[2019-01-17] MEDS: CARBOXYMETHYLCELLULOSE 1% 0.4 ML DROPERETTE EACHEYE SCH (20:30)
[2019-01-18] MEDS: LIDOCAINE 4%/MENTHOL 1% PATCH TD SCH (08:14)
[2019-01-18] MEDS: CITALOPRAM 20 MG TAB PO SCH (08:14)
[2019-01-18] MEDS: buPROPion 75 MG TAB PO SCH ×2 (08:14→14:10)
--- NOTE | 2019-01-18 11:03 | SOAPPROG ---
SOAP Progress Note Assessment/Plan: Assessment: Spinal cord dysfunction, C3 level, MONIE class C, status post C3-T1 laminectomy and fusion on 11/24/2018 for resection of an ependymoma. * Initial functional independence measure is 54 on 12/16/2018; no change as of 12/23; improved to 56 as of 12/28/2018, decline to 47 as of 01/04/2019, improved to 53 as of 01/11/2019; 61 as of 01/18/2019. Max assist of 2 for bed mobility and transfers. Close standby assist on a flat surface for seated balance; showing improved trunk control. Grooming hygiene are done with setup and standby assist. Upper body dressing requires moderate assist. Lower body dressing requires total assist but she is able to direct her care. Bathing requires total to maximal assist and bath transfer is done by Farhan to a shower chair. She has trace movement in the lower extremities more so on the left than the right. She has full active range of motion with the upper extremities. * Continue PT and OT to optimize mobility and activities of daily living. * Discussed with Neurosurgeon Dr. Palmer, 01/06/2019. D/C'd cervical collar. Increased tone, bilateral lower extremities. Sarah to on the right hamstring and quadriceps, Sarah 1 on the left. Per OT, affects ability to do lower extremity dressing. * Initiate baclofen 5 mg three times daily starting 01/18/2019. May also help neck pain. Neurogenic bowel * Getting daily bisacodyl suppository. Having daily bowel movements. No fecal incontinence. * With liquid stool and abdominal distension, abdominal x-ray 01/11/2019 showed mild constipation. * There is no indication for on oral laxative. Changed timing of bisacodyl suppository to 1800, after dinner, to take advantage of the gastrocolic reflex. 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 * Sodium chloride supplements discontinued on 01/04/2019. * Resolved on BMP 01/06/2018. Pain, below right ear. MRI 6 days ago with no sinusitis and no evidence of abscess in the surgical site. Exam not consistent with otitis. * Pain has developed since discontinuation of cervical collar. Might be due to new use of muscles to support head. * Normal white blood cell count on CBC 2 05/04/2019. Doubt infection. Continue to monitor. * Pain is improved. Continue lidocaine patches. Change acetaminophen to three times daily p.r.n. starting 01/17/2019. Fevers, likely neurogenic. * Labs and CT scan negative for pneumonia, pulmonary embolus, UTI. Normal white blood cell count, normal ESR and CRP. * Blood cultures 12/25 and 12/30/2018 were negative. * Repeat labs 12/30/2018 due to symptoms overnight, with white blood cell count, ESR and CRP not suggestive of infection. * Continue incentive spirometry. Continue to monitor for any symptoms of infection. Neurogenic bladder * Not requiring catheterization and has low postvoid residuals. Discontinue bladder scans. Continued scheduled toileting. * No urinary incontinence Upper extremity dysesthesias noted on 01/04/2018. MRI brain and C-spine without changes. Weakly positive UA on 01/02/2019; urine culture positive for 2 strains of Escherichia coli, both resistant to Bactrim. Otherwise no signs or symptoms of UTI. Discontinue Bactrim, 01/05/2019. Adjustment disorder with depressed mood. * Initiate citalopram 10 mg q.day starting 12/24/2018. Continue bupropion. * it project manager is available for counseling. Risk for autonomic dysreflexia. She appears to have intact sensation, but she may not have appropriate parasympathetic control. * Blood pressures and symptoms of distress will be monitored, and she will be treated with the autonomic dysreflexia protocol. * Will use nitroglycerin paste on a p.r.n. basis if non-pharmacologic measures are unsuccessful. * Has had no symptoms. Skin ulcer, right buttock, possibly from shear. Resolved. 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 * Valacyclovir started 12/17/2018. Continued 3 days total. Pulmonary.. * Has been assessed by Respiratory therapy. Achieving near normal pressures with incentive spirometry. Continue incentive spirometry. Contracture prevention. * No spasticity at present but will initiate spasticity of management with medications of a develops. * Podus boots while in bed to prevent ankle contractures. Low blood pressure. JB hose, abdominal binder, as needed for orthostatic symptoms. Elevated blood sugars in the hospital, likely due to dexamethasone with possible risk for diabetes mellitus, given her age and body habitus. * Occasional use of insulin initially on the rehabilitation unit. Insulin and blood sugar checks were discontinued as dexamethasone dose has come down. Prophylaxis for postoperative patient with spinal cord injury. She is on a dexamethasone taper, and this will be continued. * As her mobility is severely limited, she will also be continued on enoxaparin. * Will initiate GI prophylaxis with pantoprazole, as long as she is on both dexamethasone and enoxaparin. * Incentive spirometry, as she has a weak cough. * She is to wear her cervical collar at all times, except when showering. She has spinal precautions for the neck with no bending, twisting, or lifting greater than 10 pounds. DISPOSITION: Attended staffing, 15 min. Discussed with case management, nursing, PT, OT, COM[employer]ED YE[employer] SUPERVISOR. Plan for discharge to sister's home. Will have family training. Family obtaining home DME including Farhan lift, commode (tilt in space if possible), hospital bed. Rental power wheelchair until she obtains her own. Discharge planned for 01/19/2019. FOLLOWUP: She is to follow up with Neurosurgeon Dr. Palmer after discharge. Justification for durable medical equipment. 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 Power wheelchair: * This patient has a mobility limitation that significantly impairs 1 or more mobility related ADLs in the home. * Her functional mobility deficit cannot be resolved with a walker or cane. * Her home is adequate for accessing rooms and maneuvering space and surfaces. * The wheelchair will significantly improve her ability to participate in mobility related ADLs and the patient will use it regularly. * Patient has not expressed and unwillingness to use the wheelchair. * Patient has sufficient physical and mental ability to safely use the wheelchair. Wheelchair accessories: * She needs a manual reclining back on the wheelchair. She is at high risk for development of a pressure ulcer and is unable to perform functional weight shift. * She needs safety belt/pelvic strap. She has weak upper body muscles and upper body instability which requires use for proper positioning. * She needs swing away/retractable arm rests. She most move the component of the way to perform a slide transfer to chair bed Hospital bed: * She needs a semi-electric hospital bed. She requires frequent changes in body position due to the risk of skin breakdown. Farhan lift: * She needs a Farhan lift with commode and standard U shaped sling. * She requires the lift to allow her to discharge to her home with 1 person assist. * She lacks the ability to transfer to her power chair or commode by herself. * Her family is willing and able to assist the patient with the lift. 01/16/19 11:42 01/17/19 13:27 01/18/19 11:03 Subjective: Continues to have pain and feels tight muscles in her neck. Acetaminophen has been changed to as needed and she used it before bed last night but not today. She is unclear how much benefit she receives from the lidocaine patches but wishes to continue them. Discussed issues of increased tone in her legs and she agrees to a trial of baclofen. Otherwise without complaints. No fevers or chills, no cough or dyspnea. Objective: Vital Signs Temp Pulse Resp BP Pulse Ox 36.8 C 72 16 87/50 L 94 01/18/19 07:54 01/18/19 07:54 01/18/19 07:54 01/18/19 07:54 01/18/19 07:54 Laboratory Results 01/10/19 19:00 01/06/19 05:40 01/17/19 01/18/19 01/19/19 05:59 05:59 05:59 Intake Total 900 1580 1020 Output Total 1250 1300 Balance -[phone] - Time Spent With Patient Time Spent With Patient: Than 35 min floor time today, including more than 50% of time in coordination of care during staffing meeting, and counseling patient. Physical Exam - Physical Exam General Appearance: WD/WN, alert, no apparent distress Respiratory: No respiratory distress, No accessory muscle use Skin: normal color, warm/dry Neuro/Psych: alert, normal mood/affect, oriented x 3, motor weakness, other ( Increased tone bilateral hamstrings and quadriceps, right more so than left.) ICD10 Worksheet Patient Problems: Problems Problem Status Onset Spinal cord injury, cervical region Acute
[2019-01-18] MEDS: ENOXAPARIN 40 MG/0.4 ML SYR SC SCH (14:04)
[2019-01-18] MEDS: BACLOFEN 10 MG TAB PO SCH ×2 (15:18→20:08)
[2019-01-18] MEDS: BISACODYL 10 MG SUPP PR SCH (18:56)
[2019-01-18] MEDS: ACETAMINOPHEN 500 MG TAB PO PRN (20:07)
[2019-01-18] MEDS: CARBOXYMETHYLCELLULOSE 1% 0.4 ML DROPERETTE EACHEYE SCH (20:08)
[2019-01-18] MEDS: PATCH REMOVAL 1 EA PATCH TD SCH (20:08)
[2019-01-19 06:53] VITALS: BP 88/52
[2019-01-19] MEDS: CITALOPRAM 20 MG TAB PO SCH (08:32)
[2019-01-19] MEDS: BACLOFEN 10 MG TAB PO SCH (08:33)
[2019-01-19] MEDS: buPROPion 75 MG TAB PO SCH ×2 (08:33→13:49)
[2019-01-19] MEDS: LIDOCAINE 4%/MENTHOL 1% PATCH TD SCH (08:35)
[2019-01-19] MEDS: ENOXAPARIN 40 MG/0.4 ML SYR SC SCH (10:20)
--- NOTE | 2019-01-26 12:45 | GDS ---
[f rep st] DISCHARGE SUMMARY ADMITTING DIAGNOSIS: Incomplete tetraplegia, C3 level, [place] Spinal Injury Association class C, status post C3 through T1 laminectomy and fusion for resection of ependymoma. DISCHARGE DIAGNOSIS: Incomplete tetraplegia, C3 level, [place] Spinal Injury Association class C, status post C3 through T1 laminectomy and fusion for resection of ependymoma. OTHER DISCHARGE DIAGNOSES: 1. Neurogenic bowel. 2. Adjustment disorder with depressed mood. 3. Increased tone. COMPLICATIONS: None. PROCEDURES: None. CONSULTATIONS: None. HISTORY AND HOSPITAL COURSE: This patient was admitted from [facility]. She had had surgery with neurosurgeon, Dr. Palmer, on 11/24/2018 for an ependymoma in the cervical and thoracic spine. After the surgery, she had upper and lower extremity weakness, so she was transferred to inpatient rehabilitation. She had continual gradual progress in inpatient rehabilitation, though she continued to require assistance for most aspects of activities of daily living. She required maximal assist of 2 for bed mobility, transfers, required close standby assist on a flat surface for seated balance, and was showing improved trunk control. Grooming and hygiene were done with setup and standby assist. Upper body dressing required moderate assist. Lower body dressing required total assist, but she was able to direct her care. Bathing required total to maximal assist, and bath transfers were done by Farhan to a shower chair. She had trace movement in the lower extremities, more so on the left than on the right, and she had full active range of motion bilaterally on upper extremities. She was treated for neurogenic bowel with daily bisacodyl suppository, and she had a daily bowel movement, no incontinence. There was suspicion of neurogenic bladder, but she ultimately was able to void with scheduled toileting. In the several days prior to her discharge, she developed increased tone bilaterally in lower extremities with Sarah level 1 on the left and Sarah level 2 on the right. She was begun on baclofen 5 mg t.i.d. This WAS ALSO helpful for neck pain. DISCHARGE PLAN: She is discharging home to her sister's home with considerable family assistance. Discharge condition is good, but she needs considerable assistance with transfers by Farhan and mobility by power wheelchair. She will continue home PT and OT. DURABLE MEDICAL EQUIPMENT: She was evaluated for a power wheelchair due to her mobility limitation that affected mobility-related ADLs. Home was assessed and was adequate for accessing rooms and maneuvering spaces and surfaces. She was willing to use a wheelchair and had sufficient physical and mental ability to use the wheelchair. She needs a manual reclining back on the wheelchair due to risk for development of pressure ulcer and inability to perform functional weight shifts. She needs a safety belt/pelvic strap due to weak upper body muscles and upper body instability. She needs swing-away/retractable arm rests to be able to perform slide transfers to chair or bed. Other home equipment includes a hospital bed and a Farhan lift. ALLERGIES: There are no known drug allergies. DIET: Regular. MEDICATIONS UPON DISCHARGE: 1. Bisacodyl suppository daily at 1800. 2. Refresh eye drops q.i.d. p.r.n. 3. Bupropion 75 mg p.o. b.i.d. at 0900 and 1400. 4. Lidocaine patch. 5. Enoxaparin 40 mg subcutaneously daily for a total of 3 months post injury, which would be February 22. 6. Citalopram 10 mg p.o. daily. 7. Baclofen 5 mg p.o. t.i.d. 8. Acetaminophen 1000 mg p.o. t.i.d. p.r.n. ISSUES TO BE ADDRESSED AT FOLLOWUP: 1. Mobility and activities of daily living. She will continue home PT and OT and can follow up with primary care regarding her progress. 2. Status post C3 through T1 cervical laminectomy and fusion. Cervical collar was discontinued at the recommendation of Neurosurgery on 01/04/2019. She will follow up with neurosurgeon, Dr. Palmer, on 02/22/2019. /[id number]/MODL MTDD
--- NOTE | 2019-01-27 15:24 | GPROG ---
[f rep st] PROGRESS NOTE REHABILITATION PHYSICIAN IRF-RIRI This is the discharge IRF-RIRI. On the day of discharge, there are no unhealed pressure ulcers. On a dmission, she was noted to have a stage II pressure ulcer on the right gluteus, but on further examin ation, this was more consistent with a herpes simplex lesion, healed. /[id number]/MODL
== END 2019-01-19 15:42 | disposition home health service (06) | DRG 862 ==
LOC: BREH 14:48
PROVIDERS: ADMIT Internal Medicine Hospice and Palliative Medicine; ATTEND Internal Medicine Hospice and Palliative Medicine
PROC: F08Z7ZZ Vocational Activities and Functional Community or Work Reintegration Skills Treatment (ICD-10-PCS; principal; 2018-12-14)
PROC: F07M3ZZ Motor Function Treatment of Musculoskeletal System - Whole Body (ICD-10-PCS; principal; 2018-12-14)
DX: Z48.3 Aftercare following surgery for neoplasm (principal); G82.52 Quadriplegia, C1-C4 incomplete; C72.0 Malignant neoplasm of spinal cord; K59.2 Neurogenic bowel, not elsewhere classified; N31.9 Neuromuscular dysfunction of bladder, unspecified; E87.1 Hypo-osmolality and hyponatremia; R73.09 Other abnormal glucose; R50.9 Fever, unspecified; R20.8 Other disturbances of skin sensation; B96.29 Other Escherichia coli [E. coli] as the cause of diseases classified elsewhere; F43.21 Adjustment disorder with depressed mood; B00.9 Herpesviral infection, unspecified; Z16.39 Resistance to other specified antimicrobial drug; Z98.1 Arthrodesis status; Z85.89 Personal history of malignant neoplasm of other organs and systems; Z89.029 Acquired absence of unspecified finger(s)
CPT/HCPCS: 87529-90; 87798-90; 92507-GN; 92523-GN; 97110-GO; 97110-GP; 97112-GO; 97112-GP; 97116-GP; 97140-GO; 97163-GP; 97167-GO; 97530-GO; 97530-GP; 97535-GO; 97542-GP; 99366-GO; A9585; G0008; J1650; J1815; Q9967